=== PATIENT | male | born 1965 | race African-American/Black ===

== ENCOUNTER 2016-12-26 10:15 | Emergency (ER) | payer OTHER ==
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
--- NOTE | 2016-12-26 11:26 | XR ---
EXAMINATION TYPE: XR finger RT DATE OF EXAM: 12/26/2016 COMPARISON: NONE HISTORY: Pain injury to fifth digit TECHNIQUE: 3 view left fifth digit FINDINGS: There is an old fracture of the distal fifth metacarpal. Degenerative joint changes are pre sent. Some mild soft tissue swelling may be present. In the lateral projection there appears to be a fracture of the posterior aspect proximal portion dis ta phalanx. IMPRESSION: 1. Fracture proximal portion distal fifth phalanx on the dorsal aspect.
--- NOTE | 2016-12-26 11:28 | XR ---
EXAMINATION TYPE: XR foot complete LT DATE OF EXAM: 12/26/2016 COMPARISON: 06/22/2016 HISTORY: Left foot injury TECHNIQUE: 3 views left foot FINDINGS: There is a spiral comminuted fracture of the mid to distal diaphyseal fifth metatarsal. No additional fractures are evident. Mild soft tissue swelling is present. IMPRESSION: 1. Comminuted spiral fracture distal diaphyseal fifth metatarsal.
--- NOTE | 2016-12-26 11:58 | XR ---
EXAMINATION TYPE: XR wrist complete LT DATE OF EXAM: 12/26/2016 COMPARISON: NONE HISTORY: Injury, pain TECHNIQUE: 4 view left wrist FINDINGS: No acute fractures are evident. Soft tissues appear normal. If there is pain at the anatomic snuff box, nuclear medicine bone scan can be performed for additiona l evaluation. Follow-up study can be performed 7-10 days from acute trauma for continued pain. IMPRESSION: 1. No acute osseous abnormality radiographically apparent. Follow-up can be performed as clinically indicated.
[2016-12-26 12:00] VITALS: BP 124/80; PULSE 62; RESP 18; TEMP 97.9
--- NOTE | 2016-12-28 08:22 | CDI ---
Dear Kirill Easton MD, Please do addendum to ED report for splint application document for metatarsal fracture. Thank you, ysabel ordonez visiting housekeeper. if you have any questions,please contact amusement centre manager at [phone]. [facility]
== END 2016-12-26 12:00 | disposition home or self-care (01) ==
LOC: EC 10:15
DX: S92.352A Displaced fracture of fifth metatarsal bone, left foot, initial encounter for closed fracture (principal); S62.636 Displaced fracture of distal phalanx of right little finger; E78.5 Hyperlipidemia, unspecified; F41.9 Anxiety disorder, unspecified; F17.200 Nicotine dependence, unspecified, uncomplicated; Z79.82 Long term (current) use of aspirin; Z79.899 Other long term (current) drug therapy; Z88.8 Allergy status to other drugs, medicaments and biological substances; Y04.0XXA Assault by unarmed brawl or fight, initial encounter; Y92.89 Other specified places as the place of occurrence of the external cause
CPT/HCPCS: 29515; 99283

== ENCOUNTER → 2017-01-25 | Outpatient (CLI) | payer OTHER ==
--- NOTE | 2017-01-25 21:31 | MR ---
EXAMINATION TYPE: MR lumbar spine wo con DATE OF EXAM: 01/25/2017 COMPARISON: Prior MRI lumbar spine May 20, 2013. HISTORY: Lumbago per order. Back pain going into bilateral thighs and calves per patient. TECHNIQUE: Multiplanar, multisequence imaging of the lumbar spine is performed without IV contrast. FINDINGS: Sagittal images of the lumbar spine show vertebral body heights and alignment to appear sat isfactory. The intervertebral discs demonstrate normal heights and hydration. No significant posteri or disc herniations are seen on sagittal images. The conus medullaris remains normal in position and signal ending at mid L1 level. The bone marrow signal intensity is within normal limits. No signific ant spurring is seen. Axial images show no focal disc disease, or facet degenerative change at any lumbar level. There is no spinal canal stenosis, neural foraminal narrowing, or evidence of nerve root compromise. IMPRESSION: No significant finding is identified to account for patient's symptoms. No significant ch gregor from prior MRI is noted.
== END | disposition home or self-care (01) ==
LOC: RADMRIMAIN 19:55
PROVIDERS: ATTEND Psychiatry & Neurology Neurology
DX: M54.5 Low back pain (principal); Z88.8 Allergy status to other drugs, medicaments and biological substances
CPT/HCPCS: 72148

== ENCOUNTER 2017-09-14 09:38 | Inpatient (IN) | payer MEDICAID, OTHER ==
--- NOTE | 2017-09-14 10:27 | ED ---
Psych HPI - General Chief Complaint: Psychiatric Symptoms Stated Complaint: SUICIDAL Time Seen by Provider: 09/14/17 09:51 Source: patient, RN notes reviewed, old records reviewed Mode of arrival: ambulatory - History of Present Illness Initial Comments: This patient is a 51-year-old male with suicidal ideation. Patient reports that he's been dealing with depression is been more severe over the past few weeks. He reports last few weeks she's been thinking about jumping off the bridge. He then talked himself out of it. He states that last night he was at his girlfriend continue to have these thoughts. He thought he needed to come in for evaluation. He hasn't been hospitalized for psychiatric disease. Patient reports he has not been taking his Wellbutrin for depression. He states he's been depressed since 2009 due to side effects from taking Reglan. Patient states that he has no homicidal ideations. Denies any visual or auditory hallucinations. He reports that his cocaine abuse has been causing more stressors in his life and for those around him. He reports that he contributes s to his depression. - Related Data Home Medications Medication Instructions Recorded Confirmed Famotidine [Pepcid] 20 mg PO DAILY 08/03/14 09/14/17 Metoprolol Tartrate 25 mg PO BID 08/03/14 09/14/17 Aspirin EC [Ecotrin Low Dose] 81 mg PO DAILY 12/26/16 09/14/17 Ergocalciferol [Vitamin D2] 50,000 unit PO FR 12/26/16 09/14/17 Simvastatin [Zocor] 20 mg PO 12/26/16 09/14/17 ALPRAZolam [Xanax] 0.25 mg PO 09/14/17 09/14/17 Cholecalciferol [Vitamin D3] 5,000 unit PO DAILY 09/14/17 09/14/17 Fenofibrate 160 mg PO DAILY 09/14/17 09/14/17 Naltrexone HCl [Revia] 50 mg PO DAILY 09/14/17 09/14/17 Nitroglycerin Sl Tabs [Nitrostat] 0.4 mg SUBLINGUAL Q5M PRN 09/14/17 09/14/17 rOPINIRole HCL [Requip] 0.5 mg PO 09/14/17 09/14/17 tiZANidine [Zanaflex] 4 mg PO Q8HR PRN 09/14/17 09/14/17 Allergies Allergy/AdvReac Type Severity Reaction Status Date / Time gemfibrozil [From Lopid] Allergy LEG Verified 09/14/17 09:46 CRAMPS,ANXIETY metoclopramide HCl Allergy Rapid Verified 09/14/17 09:46 [From Reglan] Heart Rate Review of Systems ROS Statement: Those systems with pertinent positive or pertinent negative responses have been documented in the HPI. ROS Other: All systems not noted in ROS Statement are negative. Past Medical History Past Medical History: Hyperlipidemia Additional Past Medical History / Comment(s): "involuntary movement" History of Any Multi-Drug Resistant Organisms: None Reported Additional Past Surgical History / Comment(s): COLONOSCOPY,EGD Past Anesthesia/Blood Transfusion Reactions: No Reported Reaction Past Psychological History: Anxiety Smoking Status: Current every day smoker Past Alcohol Use History: Daily Past Drug Use History: Marijuana General Exam - General Exam Comments Initial Comments: 51-year-old male. No distress. Limitations: no limitations General appearance: alert, in no apparent distress Head exam: Present: atraumatic, normocephalic, normal inspection ENT exam: Present: normal exam, mucous membranes moist Neck exam: Present: normal inspection. Absent: tenderness, meningismus, lymphadenopathy Respiratory exam: Present: normal lung sounds bilaterally. Absent: respiratory distress, wheezes, rales, rhonchi, stridor Cardiovascular Exam: Present: regular rate, normal rhythm, normal heart sounds. Absent: systolic murmur, diastolic murmur, rubs, gallop, clicks GI/Abdominal exam: Present: soft, normal bowel sounds. Absent: distended, tenderness, guarding, rebound, rigid Back exam: Present: normal inspection Neurological exam: Present: alert, oriented X3, CN II-XII intact Psychiatric exam: Present: normal mood, depressed. Absent: normal affect (flat affect) Skin exam: Present: warm, dry, intact, normal color. Absent: rash Course Vital Signs 09/14/17 09:43 Temperature 97.4 F L Pulse Rate 84 Respiratory 16 Rate Blood Pressure 125/77 O2 Sat by Pulse 99 Oximetry - Reevaluation(s) Reevaluation #1: 09/14/17 12:15 Patient is reevaluated and resting comfortably bed. Currently pending EPS decision for admission. Medical Decision Making - Medical Decision Making 1-year-old male presents emergency department today suicidal ideations. Patient has no physical complaints at this time. He reports that he was planning to jump off the bridge. Patient is medically clear for EPS. He was evaluated by EPS refilled his patient will benefit from admission. Patient is signing in at his own will. - Lab Data Lab Results 09/14/17 Range/Units 12:33 Urine Opiates Screen Not Detected (NotDetected) Ur Oxycodone Screen Not Detected (NotDetected) Urine Methadone Screen Not Detected (NotDetected) Ur Propoxyphene Screen Not Detected (NotDetected) Ur Barbiturates Screen Not Detected (NotDetected) U Tricyclic Antidepress Not Detected (NotDetected) Ur Phencyclidine Scrn Not Detected (NotDetected) Ur Amphetamines Screen Not Detected (NotDetected) U Methamphetamines Scrn Not Detected (NotDetected) U Benzodiazepines Scrn Not Detected (NotDetected) Urine Cocaine Screen Detected H (NotDetected) U Marijuana (THC) Screen Detected H (NotDetected) Disposition Clinical Impression: Depression, Suicidal ideation Disposition: ADMITTED IP TO THIS HOSP Condition: Stable Time of Disposition: 13:19
[2017-09-14 13:07] LABS: Amphetamine Screen,Urine Not Detected (NotDetected); Barbiturate Screen,Urine Not Detected (NotDetected); Benzodiazepines Screen,Urine Not Detected (NotDetected); Cocaine Screen,Urine Detected (NotDetected); Methadone Screen, Urine Not Detected (NotDetected); Opiate Screen,Urine Not Detected (NotDetected); Oxycodone Screen, Urine Not Detected (NotDetected); Phencyclidine Screen,Urine Not Detected (NotDetected); Tricyclic Antidepressant,Urine Not Detected (NotDetected); Urn Cannabinoid Scrn Detected (NotDetected)
[2017-09-14] MEDS ORDERED: ACETAMINOPHEN TAB 325 MG TAB PO PRN (13:27)
[2017-09-14] MEDS ORDERED: ZIPRASIDONE 20 MG VIAL IM PRN (13:27)
[2017-09-14] MEDS ORDERED: MAGNESIUM HYDROXIDE 2,400 MG/10 ML CUP PO PRN (13:27)
[2017-09-14] MEDS ORDERED: MAG HYDROX/AL HYDROX/SIMETH 30 ML CUP PO PRN (13:27)
[2017-09-14] MEDS ORDERED: NITROGLYCERIN SL TABS 0.4 MG TAB SUBLINGUAL PRN (13:29)
[2017-09-14] MEDS ORDERED: ERGOCALCIFEROL 50,000 UNIT CAP PO SCH (13:30)
[2017-09-14] MEDS ORDERED: LORazepam 2 MG/ML INJ IM PRN (13:31)
[2017-09-14 13:46] LABS: Appearance,Urine Clear (Clear); Bilirubin,Urine Negative (Negative); Blood,Urine Negative (Negative); Color,Urine Yellow; Glucose,Urine (UA) Negative (Negative); Ketones,Urine 1+ (Negative); Leukocyte Esterase,Urine Negative (Negative); Protein,Urine Negative (Negative); Specific Gravity,Urine 1.018 (1.001-1.035)
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
[2017-09-14] MEDS: ATORVASTATIN 10 MG TAB PO SCH (20:06)
[2017-09-14] MEDS: SULFAMETHOX-TMP 800-160MG 1 EACH TAB PO SCH (20:06)
[2017-09-14] MEDS: NICOTINE 14MG/24HR PATCH TRANSDERM SCH (20:35)
--- NOTE | 2017-09-14 22:58 | CONS ---
CONSULTATION DATE OF SERVICE: 09/14/2017 REASON FOR CONSULTATION: Advice regarding COPD and other medical issues requested by psychiatry. HISTORY OF PRESENT ILLNESS: This 51-year-old gentleman with a past medical history of advanced COPD, GERD, hypertension, hyperlipidemia, DJD, involuntary movements, anxiety, depression being followed by Dr. Mera in the outpatient setting was admitted with psychiatric evaluation. The patient also had extensive substance abuse disorder including cocaine, cannabis, alcohol and opioid usage. The patient complaining of some rhonchi and some respiratory difficulty, some cough and yellow sputum and also complains of back and neck pain also. There is no history of fever, rigors, no history of headache, loss of conscious or seizures. PAST MEDICAL: COPD, GERD, hyperlipidemia, DJD, involuntary movements, possible Reglan, migraine, borderline personality disorder. MEDICATIONS: Prior to admission include: 1. Zanaflex 4 mg q.8h p.r.n. 2. Requip 0.5 mg q.h.s. 3. Zocor 20 mg q.h.s. 4. Nitrostat 0.4 mg p.r.n. 5. ReVia 50 mg p.o. daily. 6. Metoprolol 25 mg p.o. b.i.d. 7. Fenofibrate 160 mg p.o. daily. 8. Pepcid 20 mg daily. 9. Vitamin D2 50,000 daily. 10.Vitamin D3 5000 daily. 11.Ecotrin 81 mg p.o. daily. 12.Xanax 0.5 mg p.o. q.h.s. ALLERGIES: LOPID AND REGLAN. FAMILY HISTORY: GERD in the family. SOCIAL HISTORY: History of smoking, alcohol and substance abuse as mentioned. REVIEW OF SYSTEMS: ENT: No diminished hearing or vision. CARDIOVASCULAR: As mentioned. Respiratory: As mentioned earlier. GI no nausea or vomiting. no dysuria. Nervous system: No numbness, otherwise as mentioned earlier. Allergy/Immunology: No asthma or hay fever. Musculoskeletal as mentioned earlier. Hematology/Oncology: No history of anemia. Endocrine no history of diabetes or hypothyroidism. Constitutional: As mentioned earlier. Dermatology: Negative. Rheumatology: Negative. Psychiatric: As mentioned earlier. PHYSICAL EXAMINATION: Alert and oriented x3. Pulse is 80. Blood pressure is 127/69, respiration 16, temperature 98.5, pulse ox 94% on room air. HEENT: Conjunctivae normal. Oral mucosa moist. Neck is no jugular venous distention. No carotid bruit. No lymph node enlargement. Cardiovascular system: S1, S2. No S3, no S4. RESPIRATORY: Breath sounds diminished in the bases. A few bilateral scattered rhonchi and crackles. Otherwise abdomen soft, nontender. No mass palpable. Legs no edema and no swelling. Nervous system: Higher functions as mentioned. Moves all 4 limbs. No focal motor or sensory deficits. Lymphatics: No lymph nodes palpable in the neck, axillae or groin. Skin no ulcer, rash or bleeding. LABS: UA noted. Otherwise drug screen positive cocaine and THC. ASSESSMENT: 1. Chronic obstructive pulmonary disease with acute purulent tracheobronchitis. 2. Gastroesophageal reflux disease. 3. Hyperlipidemia. 4. Degenerative joint disease. 5. Involuntary movements with Reglan. 6. History of herpes. 7. Anxiety, depression. 8. History of borderline personality disorder. 9. History of nicotine dependence. 10.Polysubstance abuse including cocaine and marijuana. 11.Hypertension. RECOMMENDATION AND DISCUSSION: This 51-year-old gentleman who presented with multiple medical issues. At this time I recommend to continue current management and treatment. Otherwise I would recommend resume the home medications. I would also recommend a course of albuterol and empiric antibiotics. Also otherwise the patient may be asked to follow with primary physician closely after discharge. We will follow the patient closely. Thank you for letting us participate in the care of this patient. MMODL / IJN: [id number] /
[2017-09-15 08:21] LABS: Basophils % (A) 0 %; Eosinophils # (A) 0.1 k/uL (0-0.7); Eosinophils % (A) 1 %; HCT 46.2 % (39.0-53.0); HGB 15.1 gm/dL (13.0-17.5); Lymphocytes # (A) 1.8 k/uL (1.0-4.8); Lymphocytes % (A) 29 %; MCH 30.5 pg (25.0-35.0); MCHC 32.7 g/dL (31.0-37.0); MCV 93.1 fL (80.0-100.0); Mean Platelet Volume 8.7; Monocytes # (A) 0.5 k/uL (0-1.0); Monocytes % (A) 8 %; Neutrophils # (A) 3.7 k/uL (1.3-7.7); Neutrophils % (A) 60 %; Platelet Count 191 k/uL (150-450); RBC 4.96 m/uL (4.30-5.90); RDW 12.4 % (11.5-15.5); WBC 6.2 k/uL (3.8-10.6)
[2017-09-15 08:26] LABS: ALT 20 U/L (21-72); AST 29 U/L (17-59); Alkaline Phosphatase 56 U/L (38-126); Anion Gap 8 mmol/L; Blood Urea Nitrogen 11 mg/dL (9-20); Calcium 9.2 mg/dL (8.4-10.2); Carbon Dioxide 29 mmol/L (22-30); Chloride 103 mmol/L (98-107); Cholesterol 148 mg/dL (<200); Glucose 85 mg/dL (74-99); HDL Cholesterol 55 mg/dL (40-60); LDL Cholesterol,Calculated 71 mg/dL (0-99); Potassium 4.1 mmol/L (3.5-5.1); Sodium 140 mmol/L (137-145); Total Bilirubin 1.1 mg/dL (0.2-1.3); Total Protein 6.9 g/dL (6.3-8.2); Triglycerides 112 mg/dL (<150)
[2017-09-15] MEDS: ASPIRIN 81 MG PO SCH (08:28)
[2017-09-15] MEDS: METOPROLOL TARTRATE 25 MG TAB PO SCH ×2 (08:28→20:18)
[2017-09-15] MEDS: buPROPion 100 MG TAB PO SCH (08:28)
[2017-09-15] MEDS: FENOFIBRATE 160 MG TAB PO SCH (08:28)
[2017-09-15] MEDS: NICOTINE 14MG/24HR PATCH TRANSDERM SCH (08:28)
[2017-09-15] MEDS: SULFAMETHOX-TMP 800-160MG 1 EACH TAB PO SCH ×2 (08:28→20:18)
[2017-09-15] MEDS ORDERED: NICOTINE 14MG/24HR PATCH TRANSDERM SCH (09:00)
[2017-09-15] MEDS: ALBUTEROL INHALER 60 PUFF/8 GM INHALER INHALATION SCH ×3 (10:15→21:20)
[2017-09-15] MEDS: CHOLECALCIFEROL 1,000 UNIT TAB PO SCH (11:50)
[2017-09-15] MEDS: THIAMINE 100 MG TAB PO SCH (11:50)
[2017-09-15] MEDS: MULTIVITAMINS, THERA 1 EACH TAB PO SCH (11:50)
--- NOTE | 2017-09-15 13:50 | P.PN ---
Progress Note - Text Progress Note Date: 09/15/17 Interval History: Patient is a 51-year-old male who was seen today in coverage over the weekend and he reports that he is no longer having suicidal thoughts and is feeling less depressed. Patient states that he remains suspicious and paranoid and continues to see shadows and hear voices but he states that they are becoming less intense and frequent. He states that he slept last evening and has been eating well. He reports he feels anxious at times and was using Xanax at bedtime at home for his anxiety. Mental Status: Appearance/Attitude: Patient is dressed in a hospital gown, makes good eye contact and was cooperative. Behavior: He does not display any psychomotor agitation or retardation. Speech/Language: Patient's speech is spontaneous and of normal volume and rhythm and he is coherent. Thought Process: Patient is goal-directed there is no evidence of circumstantial or tangential thought and he does not exhibit any loose associations or flight of ideas Thought Content: Patient states he is still hearing voices which sound like noise, seeing shadows but these are improving and he reports remaining suspicious and paranoid although this is also improving. Patient states that this occurs when he is been using cocaine. Patient states he slept last evening and is eating well. He reports feeling anxious at times. Suicidal/Homicidal Ideation: Patient denies any current suicidal or homicidal ideation. Sensorium/Cognition: Is alert and oriented to person, place, and time and his recent and remote memory are grossly intact. Mood/Affect: Mood remains slightly depressed and his affect is appropriate Insight/Judgment: Patient's insight and judgment are fair Assessment: Patient was admitted for suicidal ideation, hearing voices and being paranoid after using cocaine, patient presents today and states that the suspiciousness and paranoia as well as the voices and shadows are decreasing in intensity and frequency. He reports he is feeling less depressed and has no current suicidal ideation. Patient has been attending groups and activities. He reports no side effects from the beginning of Wellbutrin. Plan: Patient will continue on Wellbutrin 100 mg in the morning, patient continues to require hospitalization to further stabilize his mood.
[2017-09-15 20:14] LABS: Hemoglobin A1C 5.1 % (4.0-6.0)
[2017-09-15] MEDS: ATORVASTATIN 10 MG TAB PO SCH (20:18)
[2017-09-15] MEDS: LORazepam 1 MG TAB PO PRN (20:19)
[2017-09-16] MEDS: NICOTINE 14MG/24HR PATCH TRANSDERM SCH (08:24)
[2017-09-16] MEDS: METOPROLOL TARTRATE 25 MG TAB PO SCH ×2 (08:25→20:29)
[2017-09-16] MEDS: FENOFIBRATE 160 MG TAB PO SCH (08:25)
[2017-09-16] MEDS: SULFAMETHOX-TMP 800-160MG 1 EACH TAB PO SCH ×2 (08:25→20:30)
[2017-09-16] MEDS: buPROPion 100 MG TAB PO SCH (08:26)
[2017-09-16] MEDS: LORazepam 1 MG TAB PO PRN ×2 (08:28→20:32)
[2017-09-16] MEDS: ASPIRIN 81 MG PO SCH (09:10)
[2017-09-16] MEDS: ALBUTEROL INHALER 60 PUFF/8 GM INHALER INHALATION SCH ×3 (11:46→21:34)
[2017-09-16] MEDS: MULTIVITAMINS, THERA 1 EACH TAB PO SCH (12:43)
[2017-09-16] MEDS: CHOLECALCIFEROL 1,000 UNIT TAB PO SCH (12:43)
[2017-09-16] MEDS: THIAMINE 100 MG TAB PO SCH (12:53)
--- NOTE | 2017-09-16 14:09 | P.PN ---
Progress Note - Text Progress Note Date: 09/16/17 Interval History: Patient is a 51-year-old male who is being seen for weekend coverage. Patient reports that he is no longer hearing voices, no longer feeling paranoid or suicidal or depressed. Patient states that he is sleeping and eating well and going to groups. He reports feeling better from a physical standpoint. He reports no symptoms of withdrawal. Patient states he is sleeping and eating well. Patient stated that he thinks his difficulties and symptoms arose from his use of cocaine and alcohol. Mental Status: Appearance/Attitude: Patient is neatly dressed, makes good eye contact and is cooperative Behavior: Patient does not display any psychomotor agitation or retardation. Speech/Language: Patient's speech is spontaneous and of normal volume and rhythm and he is coherent Thought Process: Patient is goal-directed there is no evidence of loose association or flight of ideas. Thought Content: Patient denies any auditory or visual hallucinations and no delusions or paranoid ideation or elicited. Patient reports he is sleeping and eating well and reports no signs of withdrawal. Patient states he's feeling better from a physical standpoint. Suicidal/Homicidal Ideation: Patient denies any current suicidal or homicidal ideation Sensorium/Cognition: He is alert and oriented to person, place, and time and his recent and remote memory are grossly intact. Mood/Affect: Patient's mood is pleasant and his affect is appropriate Insight/Judgment: Patient's insight and judgment are intact Assessment: Patient reports he is no longer feeling suicidal and is not having any auditory hallucinations or paranoid ideation and states that he is no longer feeling depressed. He states that he is sleeping and eating well and attending groups and denies any withdrawal symptoms. Patient states he is aware his symptoms are due to his alcohol and cocaine use. Patient states he is not having any side effects from the medication. Plan: Patient will continue on Wellbutrin 100 mg in the morning and states that he is interested in inpatient rehab and will speak with social work regarding referrals for this.
[2017-09-16] MEDS: ATORVASTATIN 10 MG TAB PO SCH (20:29)
[2017-09-17] MEDS: NICOTINE 14MG/24HR PATCH TRANSDERM SCH (08:12)
[2017-09-17] MEDS: buPROPion 100 MG TAB PO SCH (08:13)
[2017-09-17] MEDS: FENOFIBRATE 160 MG TAB PO SCH (08:13)
[2017-09-17] MEDS: SULFAMETHOX-TMP 800-160MG 1 EACH TAB PO SCH ×2 (08:13→20:10)
[2017-09-17] MEDS: ASPIRIN 81 MG PO SCH (08:13)
[2017-09-17] MEDS: METOPROLOL TARTRATE 25 MG TAB PO SCH ×2 (08:13→20:12)
[2017-09-17] MEDS: LORazepam 1 MG TAB PO PRN ×3 (08:15→20:10)
[2017-09-17] MEDS: ALBUTEROL INHALER 60 PUFF/8 GM INHALER INHALATION SCH (09:43)
[2017-09-17] MEDS: THIAMINE 100 MG TAB PO SCH (11:56)
[2017-09-17] MEDS: MULTIVITAMINS, THERA 1 EACH TAB PO SCH (11:56)
[2017-09-17] MEDS: CHOLECALCIFEROL 1,000 UNIT TAB PO SCH (11:56)
--- NOTE | 2017-09-17 12:17 | P.PN ---
Progress Note - Text Progress Note Date: 09/17/17 Patient is doing well, attends groups and takes most of his medications except for metoprolol. He said it makes his blood pressure go down pulse rate go down and his doctor had canceled it prior to coming to hospital. However it was continued by the doctor who gave him his physical exam. He has not been taking it because of his concern. But his blood pressure did not shoot up. He takes his Wellbutrin and denies any side effects. The information from his [facility] dated July of this year indicates he has not been taking his medications since December of last year and has not been going to the clinic for follow up visits. Patient is polite and friendly and cooperative. He does not show any psychomotor agitation or retardation. His speech is spontaneous relevant and goal-directed. His mood is euthymic and affect is appropriate. He denies hallucinations delusional thinking suicidal and homicidal ideas. He is well oriented with adequate memory concentration general fund of knowledge etc. He said he is planning on going to a rehab in [facility]. He said he has to be there by 1:00 to more. He was advised to discuss this with his social services aide to verified this information and to make arrangements for him to go. He agreed. Plan: Continue Wellbutrin groups and other therapies. Discharge to rehab when this is accepted and arranged.
[2017-09-17] MEDS: ATORVASTATIN 10 MG TAB PO SCH (20:09)
[2017-09-18 06:31] VITALS: BP 112/68; PULSE 54; RESP 14; TEMP 97.6
[2017-09-18] MEDS: ASPIRIN 81 MG PO SCH (08:29)
[2017-09-18] MEDS: buPROPion 100 MG TAB PO SCH (08:30)
[2017-09-18] MEDS: NICOTINE 14MG/24HR PATCH TRANSDERM SCH (08:30)
[2017-09-18] MEDS: METOPROLOL TARTRATE 25 MG TAB PO SCH (08:30)
[2017-09-18] MEDS: FENOFIBRATE 160 MG TAB PO SCH (08:30)
[2017-09-18] MEDS: SULFAMETHOX-TMP 800-160MG 1 EACH TAB PO SCH (08:31)
[2017-09-18] MEDS: LORazepam 1 MG TAB PO PRN (08:32)
--- NOTE | 2017-09-18 08:35 | P.DS ---
Providers Date of admission: 09/14/17 13:17 Expected date of discharge: 09/18/17 Attending physician: Emery Keenan Consults: 09/14/17 15:09 Consult Physician Routine Consulting Provider: Dena Ospina Consult Reason/Comments: follow up H & P Do you want consulting provider notified?: Yes Primary care physician: [facility] Course: Patient had his psychiatric examination physical examination and psychosocial evaluation. After psychiatric examination his condition was discussed with him and it was agreed to restart Wellbutrin at 100 mg a day. His home medications for physical problems including aspirin Lipitor vitamin D fenofibrate metoprolol nitroglycerin when necessary where continued. Patient has not been taking his metoprolol since his blood pressure was not high and pulse rate was rather low. He was started on Bactrim 800 mg twice a day for [address] Ospina. It is not clear why this medication was started. His lab report does not show any evidence of infection. Patient continued to do well and did not have any suicidal thoughts. He still could not return to live with his mother because of his behavior while he was living with her he got accepted to a rehab center near [facility] and he will be going there today. In view of this it was agreed to discharge him today. At the time of discharge patient continues to be polite and cooperative. He has good hygiene. He does not show any psychomotor agitation or retardation. His speech is spontaneous relevant and goal-directed. His mood is cheerful and affect is appropriate. He continues to deny suicidal and homicidal ideas. He does not have any hallucinations or delusional thinking. His insight is fair and judgment is rather impaired as evidenced by his continued substance abuse and antisocial behavior. He is well oriented with good memory concentration general fund of knowledge etc. Diagnosis on discharge: Unspecified depressive disorder F 32.9 Cocaine use disorder severe F 14.20 Cannabis use disorder severe F 12.20 Alcohol use disorder moderate to severe F 10.20 Opioid use disorder moderate F 11.20 Antisocial personality disorder F 60.2 Malingering Z 76.5 ALLERGY to gemfibrozil and Reglan Hyper lipidemia GERD. Discharge plan: Patient is discharged to a rehab center near [facility]. Patient Condition at Discharge: Good Plan - Discharge Summary Discharge Rx Participant: No New Discharge Prescriptions: New Acetaminophen Tab [Tylenol] 650 mg PO Q4HR PRN tab PRN Reason: Pain/Discomfort buPROPion [Wellbutrin] 100 mg PO QAM 30 Days #30 tab Mag Hydrox/Al Hydrox/Simeth [Maalox] 30 ml PO Q4HR PRN cup PRN Reason: Gi Upset Magnesium Hydroxide [Milk of Magnesia Concentrate] 2,400 mg PO DAILY PRN ml PRN Reason: Constipation Multivitamins, Thera [Multivitamin (formulary)] 1 each PO DAILY@1200 tab Sulfamethox-Tmp 800-160Mg [Bactrim DS 800-160 mg] 1 each PO BID 2 Days #4 tab Continue Nitroglycerin Sl Tabs [Nitrostat] 0.4 mg SUBLINGUAL Q5M PRN PRN Reason: Chest Pain Aspirin EC [Ecotrin Low Dose] 81 mg PO DAILY #30 tablet. Cholecalciferol [Vitamin D3] 5,000 unit PO DAILY 30 Days #30 tab Fenofibrate 160 mg PO DAILY 30 Days #30 tablet Simvastatin [Zocor] 20 mg PO HS 30 Days #30 tablet Discontinued Metoprolol Tartrate 25 mg PO BID Famotidine [Pepcid] 20 mg PO DAILY Ergocalciferol [Vitamin D2] 50,000 unit PO FR tiZANidine [Zanaflex] 4 mg PO Q8HR PRN PRN Reason: Pain rOPINIRole HCL [Requip] 0.5 mg PO HS Naltrexone HCl [Revia] 50 mg PO DAILY ALPRAZolam [Xanax] 0.25 mg PO HS Discharge Medication List Nitroglycerin Sl Tabs [Nitrostat] 0.4 mg SUBLINGUAL Q5M PRN 09/14/17 [History] Acetaminophen Tab [Tylenol] 650 mg PO Q4HR PRN tab 09/18/17 [Rx] Aspirin EC [Ecotrin Low Dose] 81 mg PO DAILY #30 tablet. 09/18/17 [Rx] Cholecalciferol [Vitamin D3] 5,000 unit PO DAILY 30 Days #30 tab 09/18/17 [Rx] Fenofibrate 160 mg PO DAILY 30 Days #30 tablet 09/18/17 [Rx] Mag Hydrox/Al Hydrox/Simeth [Maalox] 30 ml PO Q4HR PRN cup 09/18/17 [Rx] Magnesium Hydroxide [Milk of Magnesia Concentrate] 2,400 mg PO DAILY PRN ml 12/31 [Rx] Multivitamins, Thera [Multivitamin (formulary)] 1 each PO DAILY@1200 tab [Rx] Simvastatin [Zocor] 20 mg PO HS 30 Days #30 tablet 09/18/17 [Rx] Sulfamethox-Tmp 800-160Mg [Bactrim DS 800-160 mg] 1 each PO BID 2 Days #4 tab [Rx] buPROPion [Wellbutrin] 100 mg PO QAM 30 Days #30 tab 09/18/17 [Rx] Follow up Appointment(s)/Referral(s): intake,intake [Other] - 09/18/17 1:00 pm Maddy Mera MD [Primary Care Provider] - 1-2 days Patient Instructions/Handouts: Depression (DC), Suicide Prevention for Adults ( DC) Activity/Diet/Wound Care/Special Instructions: Activity and diet as tolerated. Avoid the use of street drugs and alcohol. Remove all firearms from home. Take all medications as prescribed. When you are in need of refills of your medication please contact your medical provider and/ or outpatient psychiatrist to have this done. Please go to scheduled outpatient appointment for aftercare. If symptoms return or become worse you can call the Crisis Line at and/or go to the nearest emergency room for an evaluation.
== END 2017-09-18 08:58 | DRG 881 ==
LOC: EC 09:38 → 3MHU 13:17
PROVIDERS: ADMIT Psychiatry & Neurology Psychiatry; ATTEND Psychiatry & Neurology Psychiatry
DX: F32.9 Major depressive disorder, single episode, unspecified (principal); F11.20 Opioid dependence, uncomplicated; F14.20 Cocaine dependence, uncomplicated; F12.20 Cannabis dependence, uncomplicated; F10.20 Alcohol dependence, uncomplicated; F60.2 Antisocial personality disorder; Z76.5 Malingerer [conscious simulation]; Z88.8 Allergy status to other drugs, medicaments and biological substances; E78.5 Hyperlipidemia, unspecified; F17.200 Nicotine dependence, unspecified, uncomplicated; F41.9 Anxiety disorder, unspecified; F60.3 Borderline personality disorder; I10 Essential (primary) hypertension; J44.9 Chronic obstructive pulmonary disease, unspecified; K21.9 Gastro-esophageal reflux disease without esophagitis; M19.90 Unspecified osteoarthritis, unspecified site; Z79.82 Long term (current) use of aspirin; Z79.899 Other long term (current) drug therapy; Z59.0 Homelessness
CPT/HCPCS: 80053; 80061; 80306; 81003; 82075; 83036; 84443; 85025; 94640; 99285

== ENCOUNTER 2017-10-10 18:47 | Emergency (ER) | payer OTHER ==
[2017-10-10] MEDS ORDERED: SODIUM CHLORIDE 0.9% 1,000 ML IV STA (19:12)
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
--- NOTE | 2017-10-10 19:59 | XR ---
EXAMINATION TYPE: XR chest 2V DATE OF EXAM: 10/10/2017 COMPARISON: 02/10/2016 HISTORY: Chest pain TECHNIQUE: Frontal and lateral views of the chest are obtained. FINDINGS: There is no heart failure nor confluent pneumonic infiltrate. Thoracic aorta is atheromato us. There are chest leads. Costophrenic angles are clear. Bony thorax is intact. IMPRESSION: No active cardiopulmonary disease. No change.
[2017-10-10 20:27] LABS: Basophils % (A) 0 %; Eosinophils # (A) 0.1 k/uL (0-0.7); Eosinophils % (A) 1 %; HCT 42.7 % (39.0-53.0); HGB 14.3 gm/dL (13.0-17.5); Lymphocytes # (A) 2.5 k/uL (1.0-4.8); Lymphocytes % (A) 33 %; MCH 29.2 pg (25.0-35.0); MCHC 33.6 g/dL (31.0-37.0); Mean Platelet Volume 10.2; Monocytes # (A) 0.7 k/uL (0-1.0); Monocytes % (A) 9 %; Neutrophils # (A) 4.2 k/uL (1.3-7.7); Neutrophils % (A) 55 %; Platelet Count 185 k/uL (150-450); RBC 4.91 m/uL (4.30-5.90); WBC 7.6 k/uL (3.8-10.6)
[2017-10-10 20:33] LABS: MCV 86.9 fL (80.0-100.0)
[2017-10-10 20:37] LABS: Partial Thromboplastin Time 26.2 sec (22.0-30.0); Prothrombin Time 9.9 sec (9.0-12.0)
[2017-10-10 20:39] LABS: Amphetamine Screen,Urine Not Detected (NotDetected); Barbiturate Screen,Urine Not Detected (NotDetected); Benzodiazepines Screen,Urine Not Detected (NotDetected); Cocaine Screen,Urine Detected (NotDetected); Methadone Screen, Urine Not Detected (NotDetected); Opiate Screen,Urine Not Detected (NotDetected); Oxycodone Screen, Urine Not Detected (NotDetected); Phencyclidine Screen,Urine Not Detected (NotDetected); Tricyclic Antidepressant,Urine Not Detected (NotDetected); Urn Cannabinoid Scrn Detected (NotDetected)
[2017-10-10 20:46] LABS: ALT 25 U/L (21-72); AST 42 U/L (17-59); Albumin 4.2 g/dL (3.5-5.0); Alcohol <10 mg/dL; Alkaline Phosphatase 61 U/L (38-126); Anion Gap 12 mmol/L; Blood Urea Nitrogen 16 mg/dL (9-20); Calcium 9.6 mg/dL (8.4-10.2); Carbon Dioxide 26 mmol/L (22-30); Chloride 99 mmol/L (98-107); Glucose 113 mg/dL (74-99); Lipase 134 U/L (23-300); Potassium 3.9 mmol/L (3.5-5.1); Sodium 137 mmol/L (137-145); Total Bilirubin 1.3 mg/dL (0.2-1.3); Total Protein 7.3 g/dL (6.3-8.2)
[2017-10-10 20:53] LABS: Creatine Kinase 733 U/L (55-170)
[2017-10-10 21:06] LABS: Troponin I <0.012 ng/mL (0.000-0.034)
[2017-10-10 21:10] LABS: Creatine Kinase MB 7.1 ng/mL (0.0-2.4)
[2017-10-10 21:58] VITALS: BP 121/71; PULSE 70; RESP 15; TEMP 98
== END 2017-10-10 22:03 | disposition home or self-care (01) ==
LOC: EC 18:47
DX: F14.90 Cocaine use, unspecified, uncomplicated (principal); R51 Headache; R07.9 Chest pain, unspecified; R00.1 Bradycardia, unspecified; E78.5 Hyperlipidemia, unspecified; F17.200 Nicotine dependence, unspecified, uncomplicated; Z88.8 Allergy status to other drugs, medicaments and biological substances; Z79.899 Other long term (current) drug therapy
CPT/HCPCS: 36415; 71046; 80053; 80306; 80320; 82550; 82553; 83690; 83735; 84484; 85025; 85610; 85730; 93005; 96360; 96361; 99284

== ENCOUNTER 2017-11-19 15:16 | Emergency (ER) | payer OTHER ==
[2017-11-19 16:04] VITALS: BP 117/74; PULSE 67; RESP 18; TEMP 98.5
[2017-11-19] MEDS ORDERED: ORPHENADRINE 30 MG/ML 2 ML VIAL IM STA (16:20)
[2017-11-19] MEDS ORDERED: KETOROLAC 30 MG/ML 1 ML VIAL IM STA (16:20)
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
== END 2017-11-19 16:53 | disposition home or self-care (01) ==
LOC: EC 15:16
DX: S16.1XXA Strain of muscle, fascia and tendon at neck level, initial encounter (principal); E78.5 Hyperlipidemia, unspecified; F17.200 Nicotine dependence, unspecified, uncomplicated; Z88.8 Allergy status to other drugs, medicaments and biological substances; Z79.899 Other long term (current) drug therapy; X58.XXXA Exposure to other specified factors, initial encounter
CPT/HCPCS: 99283; 96372 ×2; J2360; J1885

== ENCOUNTER 2017-12-26 17:46 | Emergency (ER) | payer OTHER ==
[2017-12-26 18:11] VITALS: BP 106/69; PULSE 57; RESP 16; TEMP 99
--- NOTE | 2017-12-26 19:18 | ED ---
General Adult HPI - General Chief complaint: Extremity Problem,Nontraumatic Stated complaint: FB in groin area Time Seen by Provider: 12/26/17 18:39 Source: patient Mode of arrival: ambulatory Limitations: no limitations - History of Present Illness Initial comments: 52-year-old male patient presents to the emergency department today for evaluation of left-sided chest pain. Patient states this started earlier today. Patient states that he is having sweats with this. He denies any shortness of breath or nausea. Patient states that he has past. States he did have a catheterization about a year ago. States that a few months ago he felt something hard "like a cap" in his left groin where he had the catheterization, he was concerned something was left from the catheterization and that it has traveled up and may be causing his chest pain today. States he no longer feels the "foreign body" in his groin. Patient does have a history of drug abuse including cocaine. He states that he has not had any for the last 3 weeks. He denies any cough, congestion, dizziness, weakness, numbness, or tingling. No problems with his bowel movements or urination. - Related Data Home Medications Medication Instructions Recorded Confirmed ALPRAZolam [Xanax] 0.25 mg PO BID PRN 12/26/17 12/26/17 HYDROcodone/APAP 5-325MG [[place] 1 tab PO Q6HR PRN 12/26/17 12/26/17 5-325] Previous Rx's Medication Instructions Recorded Aspirin EC [Ecotrin Low Dose] 81 mg PO DAILY #30 tablet. 09/18/17 Simvastatin [Zocor] 20 mg PO HS 30 Days #30 tablet 09/18/17 buPROPion [Wellbutrin] 100 mg PO QAM 30 Days #30 tab 09/18/17 Allergies Allergy/AdvReac Type Severity Reaction Status Date / Time gemfibrozil [From Lopid] Allergy LEG Verified 12/26/17 19:06 CRAMPS,ANXIETY metoclopramide HCl Allergy Rapid Verified 12/26/17 19:06 [From Reglan] Heart Rate Review of Systems ROS Statement: Those systems with pertinent positive or pertinent negative responses have been documented in the HPI. ROS Other: All systems not noted in ROS Statement are negative. 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 " History of Any Multi-Drug Resistant Organisms: None Reported Additional Past Surgical History / Comment(s): COLONOSCOPY,EGD Past Anesthesia/Blood Transfusion Reactions: No Reported Reaction Past Psychological History: Anxiety, Depression Smoking Status: Current every day smoker Past Alcohol Use History: Occasional Past Drug Use History: Marijuana - Past Family History Mother Family Medical History: GERD/Reflux Father Family Medical History: Cancer, Myocardial Infarction ([place]) General Exam Limitations: no limitations General appearance: alert, in no apparent distress, other (This is a well- developed, well-nourished adult male patient in no acute distress. Vital signs temperature 99.0F. Respirations 16, blood pressure 106/69, pulse ox 100% on room air.) Eye exam: Present: normal appearance, PERRL, EOMI. Absent: scleral icterus, conjunctival injection, periorbital swelling Respiratory exam: Present: normal lung sounds bilaterally. Absent: respiratory distress, wheezes, rales, rhonchi, stridor Cardiovascular Exam: Present: regular rate, normal rhythm, normal heart sounds. Absent: systolic murmur, diastolic murmur, rubs, gallop, clicks GI/Abdominal exam: Present: soft, normal bowel sounds, other (left groin, puncture site is well healed. No mass or foreign body. ). Absent: distended, tenderness, guarding, rebound, rigid Neurological exam: Present: alert, oriented X3, CN II-XII intact Psychiatric exam: Present: normal affect, normal mood Skin exam: Present: warm, dry, intact, normal color. Absent: rash Course Vital Signs 12/26/17 18:08 Temperature 99.0 F Pulse Rate 57 L Respiratory 16 Rate Blood Pressure 106/69 O2 Sat by Pulse 100 Oximetry EKG Findings - EKG Comments: EKG Findings:: He is at 1822 shows sinus bradycardia with a ventricular rate of 9, OR interval 166, respiratory or, QT, QTC 370. No evidence of ST elevation or depression. Medical Decision Making - Medical Decision Making 52-year-old male patient presented to the emergency department today for evaluation of left-sided chest pain. Patient was concerned about a postsurgical foreign body having trouble to his chest causing his symptoms. Physical examination is unremarkable. Labs reviewed and are unremarkable. Troponin is negative. EKG shows sinus bradycardia. I did discuss findings and results with the patient. His pain is atypical and not concerning for CAD. He does feel comfortable being discharged home. He is instructed to follow-up with his turbogenerator operator for further evaluation. Return parameters discussed in detail. He verbalizes understanding and agrees with this plan. - Lab Data Result diagrams: 12/26/17 19:00 12/26/17 19:00 Lab Results 12/26/17 12/26/17 12/26/17 Range/Units 19:00 19:00 19:00 WBC 9.0 (3.8-10.6) k/uL RBC 4.93 (4.30-5.90) m/uL Hgb 15.0 (13.0-17.5) gm/dL Hct 45.3 (39.0-53.0) % MCV 91.8 (80.0-100.0) fL MCH 30.3 (25.0-35.0) pg MCHC 33.0 (31.0-37.0) g/dL RDW 12.8 (11.5-15.5) % Plt Count 230 (150-450) k/uL Neutrophils % 62 % Lymphocytes % 28 % Monocytes % 6 % Eosinophils % 2 % Basophils % 0 % Neutrophils # 5.6 (1.3-7.7) k/uL Lymphocytes # 2.6 (1.0-4.8) k/uL Monocytes # 0.5 (0-1.0) k/uL Eosinophils # 0.2 (0-0.7) k/uL Basophils # 0.0 (0-0.2) k/uL PT (9.0-12.0) sec INR (<1.2) APTT (22.0-30.0) sec Sodium (137-145) mmol/L Potassium (3.5-5.1) mmol/L Chloride (98-107) mmol/L Carbon Dioxide (22-30) mmol/L Anion Gap mmol/L BUN (9-20) mg/dL Creatinine (0.66-1.25) mg/dL Est GFR (CKD-EPI)AfAm (>60 ml/min/1.73 sqM) Est GFR (CKD-EPI)NonAf (>60 ml/min/1.73 sqM) Glucose (74-99) mg/dL Calcium (8.4-10.2) mg/dL Magnesium (1.6-2.3) mg/dL Total Bilirubin (0.2-1.3) mg/dL AST (17-59) U/L ALT (21-72) U/L Alkaline Phosphatase (38-126) U/L Total Creatine Kinase 93 (55-170) U/L CK-MB (CK-2) 6.1 H* (0.0-2.4) ng/mL CK-MB (CK-2) Rel Index 6.6 Troponin I <0.012 (0.000-0.034) ng/mL Total Protein (6.3-8.2) g/dL Albumin (3.5-5.0) g/dL Urine Opiates Screen Not Detected (NotDetected) Ur Oxycodone Screen Not Detected (NotDetected) Urine Methadone Screen Not Detected (NotDetected) Ur Propoxyphene Screen Not Detected (NotDetected) Ur Barbiturates Screen Not Detected (NotDetected) U Tricyclic Antidepress Not Detected (NotDetected) Ur Phencyclidine Scrn Not Detected (NotDetected) Ur Amphetamines Screen Not Detected (NotDetected) U Methamphetamines Scrn Not Detected (NotDetected) U Benzodiazepines Scrn Not Detected (NotDetected) Urine Cocaine Screen Not Detected (NotDetected) U Marijuana (THC) Screen Detected H (NotDetected) 12/26/17 12/26/17 Range/Units 19:00 19:00 WBC (3.8-10.6) k/uL RBC (4.30-5.90) m/uL Hgb (13.0-17.5) gm/dL Hct (39.0-53.0) % MCV (80.0-100.0) fL MCH (25.0-35.0) pg MCHC (31.0-37.0) g/dL RDW (11.5-15.5) % Plt Count (150-450) k/uL Neutrophils % % Lymphocytes % % Monocytes % % Eosinophils % % Basophils % % Neutrophils # (1.3-7.7) k/uL Lymphocytes # (1.0-4.8) k/uL Monocytes # (0-1.0) k/uL Eosinophils # (0-0.7) k/uL Basophils # (0-0.2) k/uL PT 9.7 (9.0-12.0) sec INR 1.0 (<1.2) APTT 25.8 (22.0-30.0) sec Sodium 141 (137-145) mmol/L Potassium 4.4 (3.5-5.1) mmol/L Chloride 103 (98-107) mmol/L Carbon Dioxide 27 (22-30) mmol/L Anion Gap 11 mmol/L BUN 12 (9-20) mg/dL Creatinine 1.20 (0.66-1.25) mg/dL Est GFR (CKD-EPI)AfAm 80 (>60 ml/min/1.73 sqM) Est GFR (CKD-EPI)NonAf 69 (>60 ml/min/1.73 sqM) Glucose 88 (74-99) mg/dL Calcium 9.7 (8.4-10.2) mg/dL Magnesium 2.0 (1.6-2.3) mg/dL Total Bilirubin 0.4 (0.2-1.3) mg/dL AST 24 (17-59) U/L ALT 28 (21-72) U/L Alkaline Phosphatase 52 (38-126) U/L Total Creatine Kinase (55-170) U/L CK-MB (CK-2) (0.0-2.4) ng/mL CK-MB (CK-2) Rel Index Troponin I (0.000-0.034) ng/mL Total Protein 7.2 (6.3-8.2) g/dL Albumin 4.3 (3.5-5.0) g/dL Urine Opiates Screen (NotDetected) Ur Oxycodone Screen (NotDetected) Urine Methadone Screen (NotDetected) Ur Propoxyphene Screen (NotDetected) Ur Barbiturates Screen (NotDetected) U Tricyclic Antidepress (NotDetected) Ur Phencyclidine Scrn (NotDetected) Ur Amphetamines Screen (NotDetected) U Methamphetamines Scrn (NotDetected) U Benzodiazepines Scrn (NotDetected) Urine Cocaine Screen (NotDetected) U Marijuana (THC) Screen (NotDetected) - Radiology Data Radiology results: report reviewed, image reviewed Two-view x-ray of the chest is obtained. Heart and mediastinum are normal. Lungs are clear. Diaphragm is normal. Bony thorax is intact. There are chest leads. Impression by Dr. Ramos shows normal chest with no change. Disposition Clinical Impression: Chest pain Disposition: HOME SELF-CARE Condition: Good Instructions: Chest Pain (ED) Additional Instructions: Follow up with your turbogenerator operator for concerns regarding your heart catheterization. Follow up with your primary care physician for recheck in 1-2 days. Return here immediately for any new, worsening, or concerning symptoms. Is patient prescribed a controlled substance at d/c from ED?: No Referrals: [facility] [Primary Care Provider] - 1-2 days Time of Disposition: 20:54
[2017-12-26 19:20] LABS: Basophils % (A) 0 %; Eosinophils # (A) 0.2 k/uL (0-0.7); Eosinophils % (A) 2 %; HCT 45.3 % (39.0-53.0); Lymphocytes # (A) 2.6 k/uL (1.0-4.8); Lymphocytes % (A) 28 %; MCH 30.3 pg (25.0-35.0); MCV 91.8 fL (80.0-100.0); Mean Platelet Volume 9.1; Monocytes # (A) 0.5 k/uL (0-1.0); Monocytes % (A) 6 %; Neutrophils # (A) 5.6 k/uL (1.3-7.7); Neutrophils % (A) 62 %; Platelet Count 230 k/uL (150-450); RBC 4.93 m/uL (4.30-5.90); RDW 12.8 % (11.5-15.5)
[2017-12-26 19:27] LABS: Amphetamine Screen,Urine Not Detected (NotDetected); Barbiturate Screen,Urine Not Detected (NotDetected); Benzodiazepines Screen,Urine Not Detected (NotDetected); Cocaine Screen,Urine Not Detected (NotDetected); Methadone Screen, Urine Not Detected (NotDetected); Opiate Screen,Urine Not Detected (NotDetected); Oxycodone Screen, Urine Not Detected (NotDetected); Partial Thromboplastin Time 25.8 sec (22.0-30.0); Phencyclidine Screen,Urine Not Detected (NotDetected); Prothrombin Time 9.7 sec (9.0-12.0); Tricyclic Antidepressant,Urine Not Detected (NotDetected); Urn Cannabinoid Scrn Detected (NotDetected)
[2017-12-26 19:29] LABS: Albumin 4.3 g/dL (3.5-5.0); Calcium 9.7 mg/dL (8.4-10.2); Potassium 4.4 mmol/L (3.5-5.1); Total Bilirubin 0.4 mg/dL (0.2-1.3); Total Protein 7.2 g/dL (6.3-8.2)
[2017-12-26 19:49] LABS: Creatine Kinase 93 U/L (55-170)
--- NOTE | 2017-12-26 20:00 | XR ---
EXAMINATION TYPE: XR chest 2V DATE OF EXAM: 12/26/2017 COMPARISON: 10/10/2017 HISTORY: TECHNIQUE: Frontal and lateral views of the chest are obtained. FINDINGS: Heart and mediastinum are normal. Lungs are clear. Diaphragm is normal. Bony thorax is int act. There are chest leads. IMPRESSION: Normal chest. No change.
[2017-12-26 20:02] LABS: Troponin I <0.012 ng/mL (0.000-0.034)
[2017-12-26 20:04] LABS: Creatine Kinase MB 6.1 ng/mL (0.0-2.4)
== END 2017-12-26 21:05 | disposition home or self-care (01) ==
LOC: EC 17:46
DX: R07.89 Other chest pain (principal); F17.200 Nicotine dependence, unspecified, uncomplicated; Z95.818 Presence of other cardiac implants and grafts; Z88.8 Allergy status to other drugs, medicaments and biological substances
CPT/HCPCS: 36415; 71046; 80053; 80306; 82550; 82553; 83735; 84484; 85025; 85610; 85730; 93005; 99284

== ENCOUNTER 2018-02-15 23:33 | Emergency (ER) | payer OTHER ==
[2018-02-15 23:55] VITALS: TEMP 98.7
[2018-02-16] MEDS ORDERED: IBUPROFEN 600 MG TAB PO STA (00:27)
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
[2018-02-16 01:56] VITALS: BP 121/64; PULSE 64; RESP 16
== END 2018-02-16 01:53 | disposition home or self-care (01) ==
LOC: EC 23:33
DX: S00.03XA Contusion of scalp, initial encounter (principal); F17.200 Nicotine dependence, unspecified, uncomplicated; Z88.8 Allergy status to other drugs, medicaments and biological substances; Y09 Assault by unspecified means; Y92.410 Unspecified street and highway as the place of occurrence of the external cause
CPT/HCPCS: 70450; 70486; 99284

== ENCOUNTER 2019-12-29 19:34 | Observation (INO) | payer OTHER ==
[2019-12-29] MEDS ORDERED: PANTOPRAZOLE 40 MG/10 ML VIAL IVP STA (20:11)
[2019-12-29] MEDS ORDERED: SODIUM CHLORIDE 0.9% 1,000 ML IV STA (20:11)
[2019-12-29] MEDS ORDERED: ONDANSETRON 4 MG/2 ML VIAL IVP STA (20:11)
--- NOTE | 2019-12-29 20:43 | ED ---
GI Bleed HPI - General Chief complaint: GI Bleed Stated complaint: GI Bleed Time Seen by Provider: 12/29/19 19:43 Source: patient Mode of arrival: ambulatory Limitations: no limitations - History of Present Illness Initial comments: Patient is a 54-year-old male presenting to the emergency Department with chief complaint bleeding in the stool. Patient reports today he went to [facility] and was going to be admitted for GI consult and scope. Patient reports he did not like to wait long because they would not give him any food.Patient reports over the last week he has developed diarrhea but today he noticed mix of dark stool with some red blood. Patient show pictures of some formed dark stool with streaks of blood. Patient reports he does not have any rectal or abdominal pain. Patient does report some dizziness where the room was spinning around him. Also reports nausea with intermittent nonbilious, nonbloody vomiting. [place] any urinary symptoms. Denies penile discharge, testicular pain or tenderness. Denies history of GI bleed. Does report history of hemorrhoids. Denies constantly taking NSAIDs for pain. - Related Data Home Medications Medication Instructions Recorded Confirmed ALPRAZolam [Xanax] 0.25 mg PO BID PRN 12/26/17 12/26/17 HYDROcodone/APAP 5-325MG [Matador 1 tab PO Q6HR PRN 12/26/17 12/26/17 5-325] Previous Rx's Medication Instructions Recorded Aspirin EC [Ecotrin Low Dose] 81 mg PO DAILY #30 tablet. 09/18/17 Simvastatin [Zocor] 20 mg PO HS 30 Days #30 tablet 09/18/17 buPROPion [Wellbutrin] 100 mg PO QAM 30 Days #30 tab 09/18/17 Allergies Allergy/AdvReac Type Severity Reaction Status Date / Time gemfibrozil [From Lopid] Allergy LEG Verified 02/15/18 23:55 CRAMPS,ANXIETY metoclopramide HCl Allergy Rapid Verified 02/15/18 23:55 [From Reglan] Heart Rate Review of Systems ROS Statement: Those systems with pertinent positive or pertinent negative responses have been documented in the HPI. ROS Other: All systems not noted in ROS Statement are negative. 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" History of Any Multi-Drug Resistant Organisms: None Reported Additional Past Surgical History / Comment(s): COLONOSCOPY,EGD Past Anesthesia/Blood Transfusion Reactions: No Reported Reaction Past Psychological History: Anxiety, Depression Smoking Status: Current every day smoker Past Alcohol Use History: Occasional Past Drug Use History: Marijuana - Past Family History Mother Family Medical History: GERD/Reflux Father Family Medical History: Cancer, Myocardial Infarction ([place]) General Exam Limitations: no limitations General appearance: alert, in no apparent distress Head exam: Present: atraumatic, normocephalic, normal inspection Eye exam: Present: normal appearance, PERRL, EOMI. Absent: scleral icterus, other (Conjunctival pallor) Pupils: Present: normal accommodation ENT exam: Present: normal exam, normal oropharynx, mucous membranes moist Neck exam: Present: normal inspection, full ROM. Absent: tenderness Respiratory exam: Present: normal lung sounds bilaterally. Absent: respiratory distress, wheezes, rales Cardiovascular Exam: Present: regular rate, normal rhythm, normal heart sounds GI/Abdominal exam: Present: soft. Absent: distended, tenderness, guarding, rebound Extremities exam: Present: normal inspection, full ROM, normal capillary refill Back exam: Present: normal inspection, full ROM Neurological exam: Present: alert, oriented X3 Psychiatric exam: Present: normal affect, normal mood Skin exam: Present: warm, dry, intact, normal color Course Vital Signs 12/29/19 12/29/19 19:36 21:12 Temperature 98.2 F Pulse Rate 100 91 Respiratory 18 18 Rate Blood Pressure 112/76 113/83 O2 Sat by Pulse 100 100 Oximetry Medical Decision Making - Medical Decision Making Patient is a 54-year-old male presenting to emergency Department with a chief complaint of blood in the stool. No signs of hemorrhoids on rectal examination. No abdominal pain. Patient was given antiemetics and fluids in emergency department along with Protonix. Hemoglobin at 12.4. Hemoccult positive. Patient will be admitted for further medical management with GI on consult. Vitals are stable. Patient resting comfortably. Nothing by mouth after midnight. Case discussed with Dr.Bayuden Topete physician is Dr.Sheet Dr. Reilly on consult - Lab Data Result diagrams: 12/29/19 20:45 12/29/19 20:45 Lab Results 12/29/19 12/29/19 12/29/19 Range/Units 20:45 20:45 20:45 WBC 7.3 (3.8-10.6) k/uL RBC 4.21 L (4.30-5.90) m/uL Hgb 12.4 L (13.0-17.5) gm/dL Hct 38.1 L (39.0-53.0) % MCV 90.5 (80.0-100.0) fL MCH 29.4 (25.0-35.0) pg MCHC 32.5 (31.0-37.0) g/dL RDW 12.5 (11.5-15.5) % Plt Count 283 (150-450) k/uL Neutrophils % 68 % Lymphocytes % 23 % Monocytes % 6 % Eosinophils % 1 % Basophils % 1 % Neutrophils # 5.0 (1.3-7.7) k/uL Lymphocytes # 1.7 (1.0-4.8) k/uL Monocytes # 0.4 (0-1.0) k/uL Eosinophils # 0.1 (0-0.7) k/uL Basophils # 0.0 (0-0.2) k/uL PT 9.5 (9.0-12.0) sec INR 0.9 (<1.2) APTT 25.2 (22.0-30.0) sec Sodium (137-145) mmol/L Potassium (3.5-5.1) mmol/L Chloride (98-107) mmol/L Carbon Dioxide (22-30) mmol/L Anion Gap mmol/L BUN (9-20) mg/dL Creatinine (0.66-1.25) mg/dL Est GFR (CKD-EPI)AfAm (>60 ml/min/1.73 sqM) Est GFR (CKD-EPI)NonAf (>60 ml/min/1.73 sqM) Glucose (74-99) mg/dL Calcium (8.4-10.2) mg/dL Total Bilirubin (0.2-1.3) mg/dL AST (17-59) U/L ALT (4-49) U/L Alkaline Phosphatase (38-126) U/L Total Protein (6.3-8.2) g/dL Albumin (3.5-5.0) g/dL Stool Occult Blood Positive (Negative) Blood Type Blood Type Recheck Bld Type Recheck Status Antibody Screen Spec Expiration Date 12/29/19 12/29/19 Range/Units 20:45 20:45 WBC (3.8-10.6) k/uL RBC (4.30-5.90) m/uL Hgb (13.0-17.5) gm/dL Hct (39.0-53.0) % MCV (80.0-100.0) fL MCH (25.0-35.0) pg MCHC (31.0-37.0) g/dL RDW (11.5-15.5) % Plt Count (150-450) k/uL Neutrophils % % Lymphocytes % % Monocytes % % Eosinophils % % Basophils % % Neutrophils # (1.3-7.7) k/uL Lymphocytes # (1.0-4.8) k/uL Monocytes # (0-1.0) k/uL Eosinophils # (0-0.7) k/uL Basophils # (0-0.2) k/uL PT (9.0-12.0) sec INR (<1.2) APTT (22.0-30.0) sec Sodium 136 L (137-145) mmol/L Potassium 3.9 (3.5-5.1) mmol/L Chloride 107 (98-107) mmol/L Carbon Dioxide 24 (22-30) mmol/L Anion Gap 5 mmol/L BUN 10 (9-20) mg/dL Creatinine 1.17 (0.66-1.25) mg/dL Est GFR (CKD-EPI)AfAm 81 (>60 ml/min/1.73 sqM) Est GFR (CKD-EPI)NonAf 70 (>60 ml/min/1.73 sqM) Glucose 116 H (74-99) mg/dL Calcium 8.9 (8.4-10.2) mg/dL Total Bilirubin 0.6 (0.2-1.3) mg/dL AST 20 (17-59) U/L ALT 11 (4-49) U/L Alkaline Phosphatase 63 (38-126) U/L Total Protein 6.5 (6.3-8.2) g/dL Albumin 3.3 L (3.5-5.0) g/dL Stool Occult Blood (Negative) Blood Type O Positive Blood Type Recheck No Previous Record Bld Type Recheck Status CABO Indicated Antibody Screen NEGATIVE Spec Expiration Date 01/01/2020 - 2344 Disposition Clinical Impression: Melena, Anemia, Dizziness, Weakness Disposition: ADMITTED IP TO THIS [facility] Condition: Stable Instructions (If sedation given, give patient instructions): Gastrointestinal Bleeding (ED) Additional Instructions: Patient will be admitted Is patient prescribed a controlled substance at d/c from ED?: No Referrals: [facility] [Primary Care Provider] - 1-2 days Time of Disposition: 22:24
[2019-12-29 20:57] LABS: Basophils % (A) 1 %; Eosinophils # (A) 0.1 k/uL (0-0.7); Eosinophils % (A) 1 %; HCT 38.1 % (39.0-53.0); HGB 12.4 gm/dL (13.0-17.5); Lymphocytes # (A) 1.7 k/uL (1.0-4.8); Lymphocytes % (A) 23 %; MCH 29.4 pg (25.0-35.0); MCHC 32.5 g/dL (31.0-37.0); MCV 90.5 fL (80.0-100.0); Mean Platelet Volume 8.4; Monocytes # (A) 0.4 k/uL (0-1.0); Monocytes % (A) 6 %; Neutrophils % (A) 68 %; Platelet Count 283 k/uL (150-450); RBC 4.21 m/uL (4.30-5.90); RDW 12.5 % (11.5-15.5); WBC 7.3 k/uL (3.8-10.6)
[2019-12-29 21:06] LABS: INR 0.9 (<1.2); Partial Thromboplastin Time 25.2 sec (22.0-30.0); Prothrombin Time 9.5 sec (9.0-12.0)
[2019-12-29 21:10] LABS: Albumin 3.3 g/dL (3.5-5.0); Calcium 8.9 mg/dL (8.4-10.2); Potassium 3.9 mmol/L (3.5-5.1); Total Bilirubin 0.6 mg/dL (0.2-1.3); Total Protein 6.5 g/dL (6.3-8.2)
[2019-12-29] MEDS ORDERED: NALOXONE 0.4 MG/ML 1 ML VIAL IV PRN (22:19)
[2019-12-29] MEDS ORDERED: ONDANSETRON 4 MG/2 ML VIAL IVP PRN (22:19)
[2019-12-29] MEDS ORDERED: ACETAMINOPHEN TAB 325 MG TAB PO PRN (22:19)
[2019-12-29] MEDS ORDERED: MORPHINE SULFATE 4 MG/ML SYRINGE IV PRN (22:19)
[2019-12-29] MEDS ORDERED: LORazepam 2 MG/ML INJ IV PRN (22:19)
[2019-12-29] MEDS ORDERED: HYDROcodone/APAP 5-325MG 1 EACH TAB PO STA (22:27)
[2019-12-29] MEDS: SODIUM CHLORIDE 0.9% 1,000 ML IV SCH (22:58)
[2019-12-30] MEDS ORDERED: QUEtiapine 50 MG TAB PO STA (00:07)
[2019-12-30] MEDS ORDERED: PANTOPRAZOLE 40 MG/10 ML VIAL IV SCH (09:00)
[2019-12-30] MEDS: HYDROmorphone 0.5 MG/0.5 ML SYRINGE IVP PRN ×3 (09:06→20:54)
[2019-12-30] MEDS ORDERED: MORPHINE SULFATE 4 MG/ML SYRINGE IVP PRN (10:25)
[2019-12-30] MEDS ORDERED: DICYCLOMINE 20 MG TAB PO PRN (10:54)
--- NOTE | 2019-12-30 11:44 | P.HPIM ---
History of Present Illness patient is 54-year-old male came in with complaints of dark stools and some blood in the stools. had lower GI endoscopy in the past which showed some kind of colitis details are not available at this time. Patient's or dark s tools as well as some bright red blood with clots. Patient denied any fever chills patient and nausea vomiting hematemesis. Patient is comparing of abdominal pain in the left lower quadrant crampy in nature [id number] in severity. Review of Systems REVIEW OF SYSTEMS: CONSTITUTIONAL: No fever, no malaise, no fatigue. HEENT: No recent visual problems or hearing problems. Denied any sore throat. CARDIOVASCULAR: No chest pain, orthopnea, PND, no palpitations, no syncope. PULMONARY: No shortness of breath, no cough, no hemoptysis. GASTROINTESTINAL:as mentioned in HPI NEUROLOGICAL: No headaches, no weakness, no numbness. HEMATOLOGICAL: Denies any bleeding or petechiae. GENITOURINARY: Denies any burning micturition, frequency, or urgency. MUSCULOSKELETAL/RHEUMATOLOGICAL: Denies any joint pain, swelling, or any muscle pain. ENDOCRINE: Denies any polyuria or polydipsia. The rest of the 14-point review of systems is negative. Past Medical History Past Medical History: COPD, GERD/Reflux, Hyperlipidemia, Osteoarthritis (OA), Pneumonia Additional Past Medical History / Comment(s): Lower GI bleed, hemorrhoids, constipation, involuntary movements with reglan use, back pain, L shoulder pain d/t injury 2 yrs ago, RLS, migraines. History of Any Multi-Drug Resistant Organisms: None Reported Additional Past Surgical History / Comment(s): COLONOSCOPY,EGD Past Anesthesia/Blood Transfusion Reactions: No Reported Reaction Smoking Status: Current every day smoker - Past Family History Mother Family Medical History: GERD/Reflux Father Family Medical History: Cancer, Myocardial Infarction ([place]) Additional Family Medical History / Comment(s): Cancer in abdominal area, of a massive [place] at the age of 67yrs. Medications and Allergies Home Medications Medication Instructions Recorded Confirmed Type Aspirin EC [Ecotrin Low Dose] 81 mg PO DAILY #30 tablet. 09/18/17 12/29/19 Rx Acyclovir 400 mg PO TID 12/29/19 12/29/19 History Cholecalciferol [Vitamin D3 (25 5,000 unit PO DAILY 12/29/19 12/29/19 History Mcg = 1000 Iu)] Loratadine [Claritin] 10 mg PO DAILY 12/29/19 12/29/19 History Mirtazapine [Remeron] 15 mg PO HS 12/29/19 12/29/19 History Rosuvastatin Calcium [Crestor] 40 mg PO DAILY 12/29/19 12/29/19 History buPROPion XL [Wellbutrin XL] 150 mg PO DAILY 12/29/19 12/29/19 History busPIRone HCl [Buspar] 10 mg PO BID 12/29/19 12/29/19 History rOPINIRole HCL [Requip] 0.5 mg PO HS 12/29/19 12/29/19 History Allergies Allergy/AdvReac Type Severity Reaction Status Date / Time gemfibrozil [From Lopid] Allergy LEG Verified 12/29/19 22:25 CRAMPS,ANXIETY metoclopramide HCl Allergy Rapid Verified 12/29/19 22:25 [From Reglan] Heart Rate Physical Exam Vitals: Vital Signs Temp Pulse Resp BP Pulse Ox 12/30/19 07:40 55 L 18 96/54 98 12/30/19 05:47 55 L 18 96/54 98 12/29/19 23:30 60 18 93/61 100 12/29/19 22:54 59 L 18 115/87 100 12/29/19 21:12 91 18 113/83 100 12/29/19 19:36 98.2 F 100 18 112/76 100 Intake and Output 12/29/19 12/30/19 12/30/19 22:59 06:59 14:59 Other: Weight 63.503 kg 63.503 kg PHYSICAL EXAMINATION: GENERAL: The patient is alert and oriented x3, not in any acute distress. Well developed, well nourished. HEENT: Pupils are round and equally reacting to light. EOMI. No scleral icterus. No conjunctival pallor. Normocephalic, atraumatic. No pharyngeal erythema. No thyromegaly. CARDIOVASCULAR: S1 and S2 present. No murmurs, rubs, or gallops. PULMONARY: Chest is clear to auscultation, no wheezing or crackles. ABDOMEN: Soft, nontender, nondistended, normoactive bowel sounds. No palpable organomegaly. MUSCULOSKELETAL: No joint swelling or deformity. EXTREMITIES: No cyanosis, clubbing, or pedal edema. NEUROLOGICAL: Gross neurological examination did not reveal any focal deficits. SKIN: No rashes. Results CBC & Chem 7: 12/29/19 20:45 12/29/19 20:45 Labs: Abnormal Lab Results - Last 24 Hours (Table) 12/29/19 12/29/19 Range/Units 20:45 20:45 RBC 4.21 L (4.30-5.90) m/uL Hgb 12.4 L (13.0-17.5) gm/dL Hct 38.1 L (39.0-53.0) % Sodium 136 L (137-145) mmol/L Glucose 116 H (74-99) mg/dL Albumin 3.3 L (3.5-5.0) g/dL Thrombosis Risk Factor Assmnt - Choose All That Apply Any of the Below Risk Factors Present?: Yes Each Factor Represents 1 point: Abnormal pulmonary function (COPD), Age 41-60 years Other Risk Factors: No Other congenital or acquired thrombophilia - If yes, enter type in comment: No Thrombosis Risk Factor Assessment Total Risk Factor Score: 2 Thrombosis Risk Factor Assessment Level: Low Risk Assessment and Plan Plan: -acute GI bleed: Most probably upper GI bleed I'll also cannot rule out lower GI bleed patient will undergo upper and lower GI endoscopy. continue with IV fluidspatient can be transferred out of stepdown unit as patient is not actively bleeding. His last blood in the stools or dark stools was couple days ago patient didn't have any bowel movement distress today.patient is on Protonix at this time which will change to twice a day -to be without any acute exacerbation nicotine cessation counseling was provided. d-hyperlipidemia -Depression. -history of marijuana use: Counseling was provided
[2019-12-30] MEDS: SODIUM CHLORIDE 0.9% 1,000 ML IV SCH ×2 (11:59→20:55)
[2019-12-30] MEDS: NICOTINE 14MG/24HR PATCH TRANSDERM SCH (12:40)
[2019-12-30 13:56] VITALS: BMI 21.2
[2019-12-30] MEDS ORDERED: BISACODYL 5 MG TABLET.DR PO STA (15:25)
[2019-12-30] MEDS: ACYCLOVIR 200 MG CAP PO SCH ×2 (16:35→20:53)
[2019-12-30] MEDS ORDERED: PEG 3350-NA SULF,BICARB,CL/KCL 4,000 ML BOTTLE PO ONE (17:00)
--- NOTE | 2019-12-30 20:20 | P.CONS ---
History of Present Illness - Reason for Consult Consult date: 12/30/19 GI bleed, melena Requesting physician: Mirtha Mtz - Chief Complaint GI bleed - History of Present Illness 54-year-old male with a history of COPD, osteoarthritis, gastritis, and prior episodes of suspected GI bleed who presented to the hospital due to concerns over melanotic stool and GI bleeding. The patient reports approximately 7 days of loose stool approximately 3-4 per day. He reports that these bowel movements were associated with lower abdominal cramping and that they were dark black in nature. He also noted some bright red blood mixed with the stool. He denies any NSAID use or history of peptic ulcer disease. The patient has had endoscopic evaluation in the past with EGD and colonoscopy in 2015 with evidence of mild gastritis and biopsies suggestive of possible terminal ileitis. He underwent repeat endoscopic evaluation 2 years ago which was significant for a hiatal hernia and a poor colon prep. No prior treatment for inflammatory bowel disease. On presentation stool testing was positive for occult blood. WBC 7.3, hemoglobin 12.4, platelet count 283,000. Review of Systems REVIEW OF SYSTEMS: CONSTITUTIONAL: Denies any fevers, chills, weight change or fatigue. CARDIOVASCULAR: Denies any chest pain, palpitations high or low blood pressures RESPIRATORY: Denies any shortness of breath, hemoptysis or cough. GENITOURINARY: No dysuria or hematuria. MUSCULOSKELETAL: No weakness reported. SKIN: Denies any new rashes or lesions, jaundice or pallor. PSYCHIATRIC: Denies any current depressed mood or anxiety. NEUROLOGY: Denies headache, denies any new focal deficits. EARS/NOSE/THROAT: No recent hearing change, congestion, nasal discharge or sore throat. EYES: No pain in eyes, discharge or change in vision. GASTROINTESTINAL: As per HPI. Past Medical History Past Medical History: COPD, GERD/Reflux, Hyperlipidemia, Osteoarthritis (OA), Pneumonia Additional Past Medical History / Comment(s): Lower GI bleed, hemorrhoids, constipation, involuntary movements with reglan use, back pain, L shoulder pain d/t injury 2 yrs ago, RLS, migraines. History of Any Multi-Drug Resistant Organisms: None Reported Additional Past Surgical History / Comment(s): COLONOSCOPY,EGD Past Anesthesia/Blood Transfusion Reactions: No Reported Reaction Smoking Status: Current every day smoker - Past Family History Mother Family Medical History: GERD/Reflux Father Family Medical History: Cancer, Myocardial Infarction ([place]) Additional Family Medical History / Comment(s): Cancer in abdominal area, of a massive [place] at the age of 67yrs. Medications and Allergies Home Medications Medication Instructions Recorded Confirmed Type Aspirin EC [Ecotrin Low Dose] 81 mg PO DAILY #30 tablet. 09/18/17 12/29/19 Rx Acyclovir 400 mg PO TID 12/29/19 12/29/19 History Cholecalciferol [Vitamin D3 (25 5,000 unit PO DAILY 12/29/19 12/29/19 History Mcg = 1000 Iu)] Loratadine [Claritin] 10 mg PO DAILY 12/29/19 12/29/19 History Mirtazapine [Remeron] 15 mg PO HS 12/29/19 12/29/19 History Rosuvastatin Calcium [Crestor] 40 mg PO DAILY 12/29/19 12/29/19 History buPROPion XL [Wellbutrin XL] 150 mg PO DAILY 12/29/19 12/29/19 History busPIRone HCl [Buspar] 10 mg PO BID 12/29/19 12/29/19 History rOPINIRole HCL [Requip] 0.5 mg PO HS 12/29/19 12/29/19 History Allergies Allergy/AdvReac Type Severity Reaction Status Date / Time gemfibrozil [From Lopid] Allergy LEG Verified 12/29/19 22:25 CRAMPS,ANXIETY metoclopramide HCl Allergy Rapid Verified 12/29/19 22:25 [From Reglan] Heart Rate Physical Exam Vitals: Vital Signs Temp Pulse Resp BP Pulse Ox 12/30/19 07:40 55 L 18 96/54 98 12/30/19 05:47 55 L 18 96/54 98 12/29/19 23:30 60 18 93/61 100 12/29/19 22:54 59 L 18 115/87 100 12/29/19 21:12 91 18 113/83 100 12/29/19 19:36 98.2 F 100 18 112/76 100 Intake and Output 12/29/19 12/30/19 12/30/19 22:59 06:59 14:59 Other: Weight 63.503 kg 63.503 kg On physical examination, patient appears comfortable in no apparent distress. HEAD: Normocephalic, atraumatic. EYES: No scleral icterus. No conjunctival injection. MOUTH: No lesions, tongue midline. NECK: Trachea midline, no gross abnormalities. CHEST: Clear to auscultation with no wheezing or rhonchi appreciated. HEART: Regular rate and rhythm. ABDOMEN: Soft, thin and mildly tender. Bowel sounds are positive. No organomegaly. No guarding or rigidity. EXTREMITIES: No pedal edema. SKIN: No rashes, no jaundice. NEUROLOGIC: Alert and oriented x3. No focal deficits. Results CBC & Chem 7: 12/29/19 20:45 12/29/19 20:45 Labs: Abnormal Lab Results - Last 24 Hours (Table) 12/29/19 12/29/19 Range/Units 20:45 20:45 RBC 4.21 L (4.30-5.90) m/uL Hgb 12.4 L (13.0-17.5) gm/dL Hct 38.1 L (39.0-53.0) % Sodium 136 L (137-145) mmol/L Glucose 116 H (74-99) mg/dL Albumin 3.3 L (3.5-5.0) g/dL Assessment and Plan (1) Melena Narrative/Plan: 54-year-old male presenting with 1 week of lower abdominal cramping with increased frequency of bowel movements and associated dark black stool. Denies any NSAIDs or history of peptic ulcer disease. Has undergone endoscopic evaluation in 2014 with EGD significant for mild gastritis and biopsies of terminal ileum significant for some evidence of inflammation and again 2 years ago with a small hiatal hernia noted and a poor prep on colonoscopy. Hemoglobin normal at 12.4 on presentation. Stool testing positive for occult blood. Unclear etiology with plan for endoscopic evaluation for further workup. Current Visit: Yes Status: Acute Code(s): K92.1 - MELENA SNOMED Code(s): 9629774 (2) Positive occult stool blood test Current Visit: Yes Status: Acute Code(s): R19.5 - OTHER FECAL ABNORMALITIES SNOMED Code(s): 44336405 Plan: Supportive care Clear liquid diet Continue to monitor hemoglobin and hematocrit and transfuse as needed Continue Protonix therapy Bentyl therapy for cramping in Stool studies ordered Plan for EGD and colonoscopy tomorrow for further evaluation Nothing by mouth after midnight Thank you for allowing us to participate in the care of the patient
[2019-12-30] MEDS: busPIRone HCl 10 MG TAB PO SCH (20:53)
[2019-12-30] MEDS: PANTOPRAZOLE 40 MG/10 ML VIAL IV SCH (20:54)
[2019-12-30] MEDS ORDERED: MIRTAZAPINE 15 MG TAB PO SCH (21:00)
[2019-12-31] MEDS: HYDROmorphone 0.5 MG/0.5 ML SYRINGE IVP PRN ×3 (00:31→15:25)
[2019-12-31 07:10] LABS: HCT 34.3 % (39.0-53.0); HGB 11.6 gm/dL (13.0-17.5); MCH 31.1 pg (25.0-35.0); MCHC 33.8 g/dL (31.0-37.0); MCV 91.9 fL (80.0-100.0); Mean Platelet Volume 8.6; Platelet Count 276 k/uL (150-450); RBC 3.73 m/uL (4.30-5.90); RDW 12.7 % (11.5-15.5)
[2019-12-31 07:11] LABS: African American GFR (CKD) >90 (>60 ml/min/1.73 sqM); Anion Gap 4 mmol/L; Blood Urea Nitrogen 5 mg/dL (9-20); Calcium 8.5 mg/dL (8.4-10.2); Carbon Dioxide 26 mmol/L (22-30); Chloride 111 mmol/L (98-107); Glucose 79 mg/dL (74-99); Non-African American GFR(CKD) >90 (>60 ml/min/1.73 sqM); Potassium 3.8 mmol/L (3.5-5.1); Sodium 141 mmol/L (137-145)
[2019-12-31] MEDS ORDERED: ATORVASTATIN 80 MG TAB PO SCH (09:00)
[2019-12-31] MEDS ORDERED: buPROPion XL 150 MG TAB.ER.24H PO SCH (09:00)
[2019-12-31 09:17] LABS: Erythrocyte Sedimentation Rate 13 mm/hr (0-15)
[2019-12-31 09:22] LABS: C Reactive Protein <5.0 mg/L (<10.0)
[2019-12-31] MEDS: PANTOPRAZOLE 40 MG/10 ML VIAL IV SCH (09:40)
[2019-12-31] MEDS: NICOTINE 14MG/24HR PATCH TRANSDERM SCH (09:40)
[2019-12-31] MEDS: ACYCLOVIR 200 MG CAP PO SCH ×2 (09:40→17:46)
[2019-12-31] MEDS: busPIRone HCl 10 MG TAB PO SCH (09:40)
[2019-12-31] MEDS: SODIUM CHLORIDE 0.9% 1,000 ML IV SCH (09:42)
--- NOTE | 2019-12-31 13:39 | P.DS ---
Providers Date of admission: 12/31/19 09:56 Attending physician: Gabriel Arana MD Consults: 12/29/19 22:19 Consult Physician Stat Consulting Provider: Roberto Reilly Consult Reason/Comments: GI bleed, anemia Do you want consulting provider notified?: Yes Primary care physician: [facility] Course: Patient is admitted for possible GI bleeding most probably upper GI bleed and patient undergo colonoscopy and upper GI endoscopy depending on the results if cleared by gastric body patient will be discharged on Prilosec for 14 days. PHYSICAL EXAMINATION: GENERAL: The patient is alert and oriented x3, not in any acute distress. Well developed, well nourished. HEENT: Pupils are round and equally reacting to light. EOMI. No scleral icterus. No conjunctival pallor. Normocephalic, atraumatic. No pharyngeal erythema. No thyromegaly. CARDIOVASCULAR: S1 and S2 present. No murmurs, rubs, or gallops. PULMONARY: Chest is clear to auscultation, no wheezing or crackles. ABDOMEN: Soft, nontender, nondistended, normoactive bowel sounds. No palpable organomegaly. MUSCULOSKELETAL: No joint swelling or deformity. EXTREMITIES: No cyanosis, clubbing, or pedal edema. NEUROLOGICAL: Gross neurological examination did not reveal any focal deficits. SKIN: No rashes. His lipid dementia from yesterday for further details of hospital admission course and medical problems that were addressed during this hospitalization Patient Condition at Discharge: Stable Plan - Discharge Summary Discharge Rx Participant: No New Discharge Prescriptions: New Omeprazole [PriLOSEC] 40 mg PO AC-BRKFST #14 capsule. Continue Aspirin EC [Ecotrin Low Dose] 81 mg PO DAILY #30 tablet. rOPINIRole HCL [Requip] 0.5 mg PO HS buPROPion XL [Wellbutrin XL] 150 mg PO DAILY Mirtazapine [Remeron] 15 mg PO HS Cholecalciferol [Vitamin D3 (25 Mcg = 1000 Iu)] 5,000 unit PO DAILY busPIRone HCl [Buspar] 10 mg PO BID Rosuvastatin Calcium [Crestor] 40 mg PO DAILY Loratadine [Claritin] 10 mg PO DAILY Acyclovir 400 mg PO TID Discontinued Famotidine [Pepcid] 20 mg PO DAILY Cimetidine [Tagamet] 400 mg PO BID Discharge Medication List Aspirin EC [Ecotrin Low Dose] 81 mg PO DAILY #30 tablet. 09/18/17 [Rx] Acyclovir 400 mg PO TID 12/29/19 [History] Cholecalciferol [Vitamin D3 (25 Mcg = 1000 Iu)] 5,000 unit PO DAILY 12/29/19 [History] Loratadine [Claritin] 10 mg PO DAILY 12/29/19 [History] Mirtazapine [Remeron] 15 mg PO HS 12/29/19 [History] Rosuvastatin Calcium [Crestor] 40 mg PO DAILY 12/29/19 [History] buPROPion XL [Wellbutrin XL] 150 mg PO DAILY 12/29/19 [History] busPIRone HCl [Buspar] 10 mg PO BID 12/29/19 [History] rOPINIRole HCL [Requip] 0.5 mg PO HS 12/29/19 [History] Omeprazole [PriLOSEC] 40 mg PO AC-BRKFST #14 capsule. 12/31/19 [Rx] Follow up Appointment(s)/Referral(s): [facility] [Primary Care Provider] - 1-2 days Patient Instructions/Handouts: Gastrointestinal Bleeding (ED) Activity/Diet/Wound Care/Special Instructions: Patient will be admitted Discharge Disposition: HOME SELF-CARE
[2019-12-31] MEDS ORDERED: PROPOFOL 10 MG/ML 20 ML VIAL IV ONE (14:05)
[2019-12-31] MEDS ORDERED: MIDAZOLAM 2 MG/2 ML VIAL ONE (14:05)
[2019-12-31] MEDS ORDERED: IV FLUID CONTINUATION 1,000 ML IV ONE (14:05)
[2019-12-31] MEDS ORDERED: LIDOCAINE 1% INJ 10MG/ML (20 ML MDV) ONE (14:05)
[2019-12-31] MEDS ORDERED: fentaNYL (PF) 50 MCG/ML 2 ML AMP ONE (14:05)
[2019-12-31 14:10] VITALS: RESP 16
--- NOTE | 2019-12-31 14:48 | P.PCN ---
Date of Procedure: 12/31/19 Description of Procedure: Brief history: 54-year-old male with a history of COPD, osteoarthritis, gastritis, and prior episodes of suspected GI bleed who presented to the hospital due to concerns over melanotic stool and GI bleeding. The patient reports approximately 7 days of loose stool approximately 3-4 per day. He reports that these bowel movements were associated with lower abdominal cramping and that they were dark black in nature. He also noted some bright red blood mixed with the stool. He denies any NSAID use or history of peptic ulcer disease. The patient has had endoscopic evaluation in the past with EGD and colonoscopy in 2015 with evidence of mild gastritis and biopsies suggestive of possible terminal ileitis. He underwent repeat endoscopic evaluation 2 years ago which was significant for a hiatal hernia and a poor colon prep. No prior treatment for inflammatory bowel disease. On presentation stool testing was positive for occult blood. WBC 7.3, hemoglobin 12.4, platelet count 283,000. Procedure performed: Esophagogastroduodenoscopy with biopsy Colonoscopy with biopsy Estimated blood loss: Minimal. Preoperative diagnosis: Melena, diarrhea, altered bowel function Anesthesia: MAC Procedure: After informed consent was obtained from the patient was brought into the endoscopy unit and IV sedation was administered by anesthesia under continuous monitoring. Initially upper endoscopy was done. The Olympus GF 190 video endoscope was inserted into the mouth and esophagus intubated without any difficulty and was gradually advanced into the stomach and duodenum and carefully examined. The bulb and second part of the duodenum appeared normal, With biopsies taken. The scope was then withdrawn into the stomach adequately insufflated with air and upon careful examination the antrum and body, cardia and fundus appeared normal, With mild punctate erythema suggestive of mild gastritis and biopsies taken of the antrum and body. The scope was then withdrawn into the esophagus. The GE junction was located at 37 cm to the incisors, With a 3 cm hiatal hernia noted. It appeared regular with no erythema erosions or ulcerations. Rest of the esophagus appeared normal. Patient tolerated the procedure well. At this time the patient continued to remain sedation. Initial digital rectal examination was normal. Olympus CF 190 video colonoscope was then inserted into the rectum and gradually advanced to the cecum without any difficulty. Careful examination was performed as the scope was gradually being withdrawn. The prep was excellent. The cecum, ascending colon, transverse colon, descending colon, sigmoid colon and rectum appeared normal, With random biopsies taken of the right colon, transverse colon, left colon and rectum. The terminal ileum was intubated with mild to moderate erythema suggestive of mild to moderate ileitis with biopsies taken. Retroflexion was performed in the rectum and no lesions were noted. Patient tolerated the procedure well. Impression: 1. Mild gastritis antrum body, biopsied. Moderate hiatal hernia. Duodenal biopsies. 2. Mild to moderate ileitis with biopsies taken. Otherwise normal-appearing colon from rectum to cecum with random biopsies taken of the right colon, transverse colon, left colon and rectum. Recommendations: Findings of this examination were discussed with the patient as well as The medical team. At this time patient will be scheduled for follow-up visit in 3 weeks in the GI clinic. He'll be given a steroid taper. Consideration will be for initiation of maintenance therapy if chronic ileal inflammation is again noted on biopsies of the terminal ileum.
[2019-12-31 17:27] VITALS: TEMP 97.4
[2019-12-31 17:28] VITALS: BP 125/75; PULSE 48
--- NOTE | 2020-01-02 01:55 | CDI ---
Documentation Clarification Form Date: 01/02/2020 From: Israel Aleman Phone: If you have a question about this query, please contact Riana Self, Marine Engine [employer]inist at [phone] between 8am and 5pm. Admit Date: 12/31/2019 Discharge Date: 12/31/2019 Patient Name: Charly Bragg Visit Number: [id number] ATTENTION: The Clinical Documentation Specialists (CDI) and [facility] Coding Staff appreciate your assistance in clarifying documentation. Please respond to the clarification below the line at the bottom and electronically sign. The CDI & [facility] Coding staff will review the response and follow-up if needed. Please note: Queries are made part of the Legal Health Record. If you have any questions, please contact the author of this message via ITS. Dear Mirtha Reynoso., Anemia is documented in the ED as "Anemia" and in discharge under consult reason :Anemia. History/Risk Factors: GI Bleed, Gastritis Hemoglobin: 12.4L , 11.6 L Hematocrit: 34.3L Treatment: Continue to monitor hemoglobin and hematocrit and transfuse as needed. Patient is admitted for possible GI bleeding most probably upper GI bleed. In order to capture the severity of condition, please clarify the type of anemia and etiology if known:. Acute blood loss anemia Iron Deficiency anemia Unable to determine Other, please specify Already documented patient has acute blood loss anemia MTDD
== END 2019-12-31 18:11 | disposition home or self-care (01) ==
LOC: EC 19:34 → 4SSUR 22:12 → 3SCARD 12-30 05:31 → OBSVTOIN 12-31 09:56 → INTOOBSV 12-31 09:56 → UNDODISIN 12-31 18:11
PROVIDERS: ADMIT Internal Medicine; ATTEND Internal Medicine
DX: K29.81 Duodenitis with bleeding (principal); K29.51 Unspecified chronic gastritis with bleeding; K52.9 Noninfective gastroenteritis and colitis, unspecified; K44.9 Diaphragmatic hernia without obstruction or gangrene; D62 Acute posthemorrhagic anemia; R10.32 Left lower quadrant pain; J44.9 Chronic obstructive pulmonary disease, unspecified; K21.9 Gastro-esophageal reflux disease without esophagitis; E78.5 Hyperlipidemia, unspecified; M19.90 Unspecified osteoarthritis, unspecified site; G43.909 Migraine, unspecified, not intractable, without status migrainosus; B00.9 Herpesviral infection, unspecified; F60.3 Borderline personality disorder; F41.9 Anxiety disorder, unspecified; F32.9 Major depressive disorder, single episode, unspecified; F17.210 Nicotine dependence, cigarettes, uncomplicated; G25.81 Restless legs syndrome; I49.9 Cardiac arrhythmia, unspecified; Z03.818 Encounter for observation for suspected exposure to other biological agents ruled out; Z88.8 Allergy status to other drugs, medicaments and biological substances; Z98.890 Other specified postprocedural states; Z79.82 Long term (current) use of aspirin; Z79.899 Other long term (current) drug therapy; Z87.01 Personal history of pneumonia (recurrent); Z87.19 Personal history of other diseases of the digestive system; Z87.828 Personal history of other (healed) physical injury and trauma; Z71.6 Tobacco abuse counseling; Z83.79 Family history of other diseases of the digestive system; Z82.49 Family history of ischemic heart disease and other diseases of the circulatory system; Z80.8 Family history of malignant neoplasm of other organs or systems
CPT/HCPCS: 96376 ×2; 96361 ×3; 96375 ×3; 96374; 99285; 36415; 86900; 86901; 88305; 80053; 80048; 85652 ×2; 85025; 85027; 85610; 85730; 86850; 86140 ×2; 82272; 87045; 83630; 87046; 45380; 43239; G0378 ×4; U0003; S4990 ×2; J2250; J2270; J2405; J2001; J3010; J2704; C9113 ×3; J1170 ×2

== ENCOUNTER → 2020-01-06 | Outpatient (CLI) | payer OTHER ==
--- NOTE | 2020-01-07 07:14 | XR ---
EXAMINATION TYPE: XR knee complete bilateral DATE OF EXAM: 01/06/2020 CLINICAL HISTORY: pain TECHNIQUE: Three views of the bilateral knees are obtained. COMPARISON: None. FINDINGS: There is no acute fracture/dislocation. The tri-compartment joint spaces appear within no rmal limits. The overlying soft tissue appears unremarkable. IMPRESSION: There is no acute fracture or dislocation.ICD 10 NO FRACTURE, INITIAL EVALUATION
--- NOTE | 2020-01-07 07:15 | XR ---
EXAMINATION TYPE: XR shoulder complete LT DATE OF EXAM: 01/06/2020 CLINICAL HISTORY: pain COMPARISON: NONE TECHNIQUE: Three views of the left shoulder are obtained. FINDINGS: There is no acute fracture/dislocation evident. The acromioclavicular and glenohumeral vaishali int spaces appear within normal limits. The visualized ribs are intact and unremarkable. IMPRESSION: 1. There is no acute fracture or dislocation. ICD 10 NO FRACTURE, INITIAL EVALUATION
== END | disposition home or self-care (01) ==
LOC: RADXRMAIN 16:03
PROVIDERS: ATTEND Nurse Practitioner
DX: M25.512 Pain in left shoulder (principal); M25.561 Pain in right knee; M25.562 Pain in left knee

== ENCOUNTER 2020-11-25 00:41 | Emergency (ER) | payer OTHER ==
[2020-11-25 00:46] VITALS: TEMP 97.6
[2020-11-25] MEDS ORDERED: IPRATROPIUM-ALBUTEROL 3 ML NEB INHALATION PRN (00:48)
[2020-11-25] MEDS ORDERED: ALBUTEROL HFA INHALER INHALATION STA (00:48)
[2020-11-25] MEDS ORDERED: methylPREDNISolone SOD SUCCI 125 MG/2 ML VIAL IV STA (00:48)
[2020-11-25] MEDS ORDERED: IPRATROPIUM-ALBUTEROL 3 ML NEB INHALATION STA ×2 (00:48→01:23)
[2020-11-25] MEDS ORDERED: ACETAMINOPHEN TAB 500 MG TAB PO STA (00:48)
--- NOTE | 2020-11-25 00:48 | ED ---
SOB HPI - General Chief Complaint: Shortness of Breath Stated Complaint: ANAI Time Seen by Provider: 11/25/20 00:47 Source: patient Mode of arrival: ambulatory Limitations: no limitations - Related Data Home Medications Medication Instructions Recorded Confirmed Acyclovir 400 mg PO TID 12/29/19 12/29/19 Cholecalciferol [Vitamin D3 (25 5,000 unit PO DAILY 12/29/19 12/29/19 Mcg = 1000 Iu)] Loratadine [Claritin] 10 mg PO DAILY 12/29/19 12/29/19 Mirtazapine [Remeron] 15 mg PO HS 12/29/19 12/29/19 Rosuvastatin Calcium [Crestor] 40 mg PO DAILY 12/29/19 12/29/19 buPROPion XL [Wellbutrin XL] 150 mg PO DAILY 12/29/19 12/29/19 busPIRone HCl [Buspar] 10 mg PO BID 12/29/19 12/29/19 rOPINIRole HCL [Requip] 0.5 mg PO HS 12/29/19 12/29/19 Previous Rx's Medication Instructions Recorded Aspirin EC [Ecotrin Low Dose] 81 mg PO DAILY #30 tablet. 09/18/17 Omeprazole [PriLOSEC] 40 mg PO AC-BRKFST #14 capsule. 12/31/19 predniSONE 10 mg PO DAILY #74 tab 12/31/19 Albuterol Sulfate [Proair Hfa] 1 - 2 puff INHALATION Q4H PRN #1 11/25/20 inhaler Azithromycin [Zithromax Z-pack (6 0 mg PO DIRECTED #1 pack 11/25/20 tabs)] predniSONE 50 mg PO DAILY #5 tab 11/25/20 Allergies Allergy/AdvReac Type Severity Reaction Status Date / Time gemfibrozil [From Lopid] Allergy LEG Verified 11/25/20 00:46 CRAMPS,ANXIETY metoclopramide HCl Allergy Rapid Verified 11/25/20 00:46 [From Reglan] Heart Rate Review of Systems ROS Statement: Those systems with pertinent positive or pertinent negative responses have been documented in the HPI. ROS Other: All systems not noted in ROS Statement are negative. Past Medical History Past Medical History: COPD, GERD/Reflux, Hyperlipidemia, Osteoarthritis (OA), Pneumonia Additional Past Medical History / Comment(s): Lower GI bleed, hemorrhoids, constipation, involuntary movements with reglan use, back pain, L shoulder pain d/t injury 2 yrs ago, RLS, migraines. History of Any Multi-Drug Resistant Organisms: None Reported Additional Past Surgical History / Comment(s): COLONOSCOPY,EGD Past Anesthesia/Blood Transfusion Reactions: No Reported Reaction Past Psychological History: Anxiety, Depression Smoking Status: Current every day smoker Past Alcohol Use History: Occasional Past Drug Use History: Cocaine, Marijuana - Past Family History Mother Family Medical History: GERD/Reflux Father Family Medical History: Cancer, Myocardial Infarction ([place]) Additional Family Medical History / Comment(s): Cancer in abdominal area, of a massive [place] at the age of 67yrs. General Exam Limitations: no limitations Course Vital Signs 11/25/20 11/25/20 11/25/20 00:44 01:00 01:02 Temperature 97.6 F Pulse Rate 91 85 Respiratory 20 18 18 Rate Blood Pressure 139/81 136/88 O2 Sat by Pulse 100 100 Oximetry 11/25/20 11/25/20 11/25/20 01:42 01:49 02:00 Temperature Pulse Rate 73 72 65 Respiratory 18 Rate Blood Pressure 129/86 O2 Sat by Pulse 100 Oximetry Medical Decision Making - EKG Data -: EKG Interpreted by Me (EKG is sinus rhythm 78 [place] 152 QRS 74 QTc 419) Disposition Clinical Impression: Asthma with acute exacerbation Disposition: HOME SELF-CARE Condition: Good Instructions (If sedation given, give patient instructions): Asthma (ED) Prescriptions: predniSONE 50 mg PO DAILY #5 tab Albuterol Sulfate [Proair Hfa] 1 - 2 puff INHALATION Q4H PRN #1 inhaler PRN Reason: Shortness Of Breath Azithromycin [Zithromax Z-pack (6 tabs)] 0 mg PO DIRECTED #1 pack Is patient prescribed a controlled substance at d/c from ED?: No Referrals: [facility] [Primary Care Provider] - 1-2 days
[2020-11-25] MEDS ORDERED: SODIUM CHLORIDE 0.9% 500 ML 500 ML IV STA (00:50)
[2020-11-25] MEDS ORDERED: SODIUM CHLORIDE 0.9% 1,000 ML IV STA (00:50)
--- NOTE | 2020-11-25 01:07 | XR ---
EXAM: XR Chest, 1 View CLINICAL HISTORY: ITS.REASON XR Reason: Suspected COVID-19 pneumonia TECHNIQUE: Frontal view of the chest. COMPARISON: 12/26/2017 FINDINGS: Lungs: Unremarkable. No consolidation. Pleural space: Unremarkable. No pneumothorax. Heart: Unremarkable. No cardiomegaly. Mediastinum: Unremarkable. Bones/joints: Unremarkable. IMPRESSION: No acute pulmonary process
[2020-11-25 01:09] VITALS: RESP 18
[2020-11-25] MEDS ORDERED: LORazepam 1 MG TAB PO STA (01:23)
[2020-11-25] MEDS ORDERED: predniSONE 20 MG TAB PO STA (01:23)
[2020-11-25] MEDS ORDERED: AZITHROMYCIN 500 MG TAB PO STA (01:23)
[2020-11-25 02:27] VITALS: BP 129/86; PULSE 65
== END 2020-11-25 02:34 | disposition home or self-care (01) ==
LOC: EC 00:41
DX: J45.901 Unspecified asthma with (acute) exacerbation (principal); E78.5 Hyperlipidemia, unspecified; M19.90 Unspecified osteoarthritis, unspecified site; F17.200 Nicotine dependence, unspecified, uncomplicated; F32.9 Major depressive disorder, single episode, unspecified; F12.90 Cannabis use, unspecified, uncomplicated; F41.9 Anxiety disorder, unspecified; Z79.82 Long term (current) use of aspirin
CPT/HCPCS: 94640; 93005; 71045; 99285; J7512

== ENCOUNTER 2020-12-09 02:55 | Emergency (ER) | payer OTHER ==
[2020-12-09 03:13] VITALS: BP 144/97; TEMP 97.6
[2020-12-09] MEDS ORDERED: ALBUTEROL NEBULIZED 2.5 MG/3 ML INHALATION STA (03:29)
--- NOTE | 2020-12-09 03:32 | ED ---
SOB HPI - General Chief Complaint: Shortness of Breath Stated Complaint: ANAI Time Seen by Provider: 12/09/20 03:17 Source: patient, family Mode of arrival: ambulatory - History of Present Illness Initial Comments: This patient is a 55-year-old man with history of asthma who presents with cough and wheezing. He states that he was seen here approximately 2 weeks ago for the same symptoms. He was prescribed medications but states that he lost the prescriptions before he was able to get them filled. He is hoping to have the prescriptions rewritten and he also feels he needs a breathing treatment. No fever or chills. No purulent sputum. MD Complaint: shortness of breath, cough Onset/Timin -: week(s) Consistency: intermittent Improves With: nothing Worsens With: nothing Known History Of: asthma Associated Symptoms: cough, sputum production Treatments Prior to Arrival: none - Related Data Home Oxygen Therapy: No Home Medications Medication Instructions Recorded Confirmed Acyclovir 400 mg PO TID 12/29/19 12/29/19 Cholecalciferol [Vitamin D3 (25 5,000 unit PO DAILY 12/29/19 12/29/19 Mcg = 1000 Iu)] Loratadine [Claritin] 10 mg PO DAILY 12/29/19 12/29/19 Mirtazapine [Remeron] 15 mg PO HS 12/29/19 12/29/19 Rosuvastatin Calcium [Crestor] 40 mg PO DAILY 12/29/19 12/29/19 buPROPion XL [Wellbutrin XL] 150 mg PO DAILY 12/29/19 12/29/19 busPIRone HCl [Buspar] 10 mg PO BID 12/29/19 12/29/19 rOPINIRole HCL [Requip] 0.5 mg PO HS 12/29/19 12/29/19 Previous Rx's Medication Instructions Recorded Aspirin EC [Ecotrin Low Dose] 81 mg PO DAILY #30 tablet. 09/18/17 Omeprazole [PriLOSEC] 40 mg PO AC-BRKFST #14 capsule. 12/31/19 predniSONE 10 mg PO DAILY #74 tab 12/31/19 Albuterol Sulfate [Proair Hfa] 1 - 2 puff INHALATION Q4H PRN #1 11/25/20 inhaler Azithromycin [Zithromax Z-pack (6 0 mg PO DIRECTED #1 pack 11/25/20 tabs)] predniSONE 50 mg PO DAILY #5 tab 11/25/20 Albuterol Inhaler [Ventolin Hfa 2 puff INHALATION Q4HR PRN #1 12/09/20 Inhaler] inhaler Azithromycin [Zithromax Z-pack (6 250 mg PO DIRECTED #6 tab 12/09/20 tabs)] predniSONE [Deltasone] 20 mg PO BID #8 tab 12/09/20 Allergies Allergy/AdvReac Type Severity Reaction Status Date / Time gemfibrozil [From Lopid] Allergy LEG Verified 12/09/20 03:13 CRAMPS,ANXIETY metoclopramide HCl Allergy Rapid Verified 12/09/20 03:13 [From Reglan] Heart Rate Review of Systems ROS Statement: Those systems with pertinent positive or pertinent negative responses have been documented in the HPI. ROS Other: All systems not noted in ROS Statement are negative. Constitutional: Denies: fever, chills Respiratory: Reports: cough, wheezes Cardiovascular: Denies: chest pain, palpitations, edema, syncope Gastrointestinal: Denies: abdominal pain, vomiting, diarrhea Genitourinary: Denies: dysuria Musculoskeletal: Denies: back pain Skin: Denies: rash Neurological: Denies: headache, weakness, numbness Past Medical History Past Medical History: COPD, GERD/Reflux, Hyperlipidemia, Osteoarthritis (OA), Pneumonia Additional Past Medical History / Comment(s): Lower GI bleed, hemorrhoids, constipation, involuntary movements with reglan use, back pain, L shoulder pain d/t injury 2 yrs ago, RLS, migraines. History of Any Multi-Drug Resistant Organisms: None Reported Additional Past Surgical History / Comment(s): COLONOSCOPY,EGD Past Anesthesia/Blood Transfusion Reactions: No Reported Reaction Past Psychological History: Anxiety, Depression Smoking Status: Current every day smoker Past Alcohol Use History: Occasional Past Drug Use History: Cocaine, Marijuana - Past Family History Mother Family Medical History: GERD/Reflux Father Family Medical History: Cancer, Myocardial Infarction ([place]) Additional Family Medical History / Comment(s): Cancer in abdominal area, of a massive [place] at the age of 67yrs. General Exam General appearance: alert, in no apparent distress Head exam: Present: atraumatic, normocephalic Eye exam: Present: normal appearance. Absent: scleral icterus, conjunctival injection ENT exam: Present: normal oropharynx Neck exam: Present: normal inspection Respiratory exam: Present: wheezes. Absent: respiratory distress, rales, rhonchi, stridor Cardiovascular Exam: Present: regular rate, normal rhythm, normal heart sounds. Absent: systolic murmur, diastolic murmur, rubs, gallop GI/Abdominal exam: Present: soft. Absent: distended, tenderness, guarding, rebound, rigid Back exam: Present: normal inspection Neurological exam: Present: alert Skin exam: Present: warm, dry, intact, normal color. Absent: rash Course Vital Signs 12/09/20 12/09/20 12/09/20 03:09 03:39 03:43 Temperature 97.6 F Pulse Rate 78 78 Respiratory 18 16 Rate Blood Pressure 144/97 O2 Sat by Pulse 99 Oximetry Disposition Clinical Impression: Asthma with acute exacerbation Disposition: HOME SELF-CARE Condition: Good Instructions (If sedation given, give patient instructions): Asthma (ED) Prescriptions: predniSONE [Deltasone] 20 mg PO BID #8 tab Albuterol Inhaler [Ventolin Hfa Inhaler] 2 puff INHALATION Q4HR PRN #1 inhaler PRN Reason: Wheezing Azithromycin [Zithromax Z-pack (6 tabs)] 250 mg PO DIRECTED #6 tab Is patient prescribed a controlled substance at d/c from ED?: No Referrals: [facility] [Primary Care Provider] - 1-2 days
[2020-12-09 03:42] VITALS: RESP 16
[2020-12-09 04:05] VITALS: PULSE 91
== END 2020-12-09 04:04 | disposition home or self-care (01) ==
LOC: EC 02:55
DX: J45.901 Unspecified asthma with (acute) exacerbation (principal); K21.9 Gastro-esophageal reflux disease without esophagitis; J44.9 Chronic obstructive pulmonary disease, unspecified; M19.90 Unspecified osteoarthritis, unspecified site; E78.5 Hyperlipidemia, unspecified; F32.9 Major depressive disorder, single episode, unspecified; F17.200 Nicotine dependence, unspecified, uncomplicated; F12.90 Cannabis use, unspecified, uncomplicated; F14.90 Cocaine use, unspecified, uncomplicated; Z87.19 Personal history of other diseases of the digestive system; Z79.52 Long term (current) use of systemic steroids; Z79.82 Long term (current) use of aspirin; Z79.899 Other long term (current) drug therapy
CPT/HCPCS: 94640; 99284

== ENCOUNTER 2020-12-19 21:41 | Inpatient (IN) | payer MEDICAID, OTHER ==
--- NOTE | 2020-12-19 22:11 | ED ---
General Adult HPI - General Source: patient, RN notes reviewed, old records reviewed Mode of arrival: ambulatory Limitations: no limitations <Eddie Chaney - Last Filed: 12/19/20 22:10> <Kirill Cooney - Last Filed: 12/20/20 03:38> - General Chief complaint: Psychiatric Symptoms Stated complaint: mental health Time Seen by Provider: 12/19/20 22:03 - History of Present Illness Initial comments: 55-year-old male presenting for mental health evaluation. Patient requesting evaluation of auditory hallucination, and suicidal ideation. He denies a suicide attempt. He does admit to alcohol use. He states he's had previous admission for mental health evaluation and treatment. He denies physical co mplaints. He is also requesting medication adjustment for his symptoms. (Eddie Chaney) - Related Data Home Medications Medication Instructions Recorded Confirmed Cholecalciferol [Vitamin D3 (25 5,000 unit PO DAILY 12/29/19 12/19/20 Mcg = 1000 Iu)] Loratadine [Claritin] 10 mg PO DAILY 12/29/19 12/19/20 Mirtazapine [Remeron] 15 mg PO HS 12/29/19 12/19/20 Rosuvastatin Calcium [Crestor] 40 mg PO DAILY 12/29/19 12/19/20 buPROPion XL [Wellbutrin XL] 150 mg PO DAILY 12/29/19 12/19/20 busPIRone HCl [Buspar] 10 mg PO BID 12/29/19 12/19/20 rOPINIRole HCL [Requip] 0.5 mg PO HS 12/29/19 12/19/20 Albuterol Inhaler [Ventolin Hfa 2 puff INHALATION RT-Q4H PRN 12/19/20 12/19/20 Inhaler] Famotidine 20 mg PO DAILY 12/19/20 12/19/20 Previous Rx's Medication Instructions Recorded Aspirin EC [Ecotrin Low Dose] 81 mg PO DAILY #30 tablet. 09/18/17 Allergies Allergy/AdvReac Type Severity Reaction Status Date / Time gemfibrozil [From Lopid] Allergy LEG Verified 12/19/20 23:30 CRAMPS,ANXIETY metoclopramide HCl Allergy Rapid Verified 12/19/20 23:30 [From Reglan] Heart Rate Review of Systems ROS Other: All systems not noted in ROS Statement are negative. <Eddie Chaney - Last Filed: 12/19/20 22:10> ROS Other: All systems not noted in ROS Statement are negative. <EstrellaKirill pandey Hermes - Last Filed: 12/20/20 03:38> ROS Statement: Those systems with pertinent positive or pertinent negative responses have been documented in the HPI. Past Medical History Past Medical History: COPD, GERD/Reflux, Hyperlipidemia, Osteoarthritis (OA), Pneumonia Additional Past Medical History / Comment(s): Lower GI bleed, hemorrhoids, constipation, involuntary movements with reglan use, back pain, L shoulder pain d/t injury 2 yrs ago, RLS, migraines. History of Any Multi-Drug Resistant Organisms: None Reported Additional Past Surgical History / Comment(s): COLONOSCOPY,EGD Past Anesthesia/Blood Transfusion Reactions: No Reported Reaction Past Psychological History: Anxiety, Depression Smoking Status: Current every day smoker Past Alcohol Use History: Occasional Past Drug Use History: Cocaine, Marijuana - Past Family History Mother Family Medical History: GERD/Reflux Father Family Medical History: Cancer, Myocardial Infarction ([place]) Additional Family Medical History / Comment(s): Cancer in abdominal area, of a massive [place] at the age of 67yrs. <Eddie Chaney - Last Filed: 12/19/20 22:10> General Exam Limitations: no limitations General appearance: alert, in no apparent distress Head exam: Present: atraumatic, normocephalic Eye exam: Present: normal appearance, PERRL ENT exam: Present: normal exam Neck exam: Present: normal inspection. Absent: tenderness, meningismus Respiratory exam: Present: normal lung sounds bilaterally. Absent: respiratory distress, wheezes Cardiovascular Exam: Present: normal rhythm, tachycardia GI/Abdominal exam: Present: soft. Absent: distended, tenderness, guarding Extremities exam: Present: normal inspection, normal capillary refill. Absent: pedal edema, calf tenderness Neurological exam: Present: alert, oriented X3, CN II-XII intact. Absent: motor sensory deficit Psychiatric exam: Present: suicidal ideation, other (Auditory hallucination) Skin exam: Present: warm, dry, intact <Eddie Chaney - Last Filed: 12/19/20 22:10> Course <Eddie Chaney - Last Filed: 12/19/20 22:10> Vital Signs 12/19/20 21:44 Temperature 97.6 F Pulse Rate 107 H Respiratory 18 Rate Blood Pressure 151/99 O2 Sat by Pulse 99 Oximetry - Reevaluation(s) Reevaluation #1: 12/19/20 22:10 Patient medically cleared for EPS evaluation. (Eddie Chaney) Medical Decision Making <Kirill Cooney - Last Filed: 12/20/20 03:38> - Medical Decision Making 55 male was made medically clear for psychiatric evaluation will be admitted for psychiatric evaluation and treatment (Kirill Cooney) - Lab Data Lab Results 12/19/20 12/20/20 Range/Units 22:08 01:53 Urine Opiates Screen Not Detected (NotDetected) Ur Oxycodone Screen Not Detected (NotDetected) Urine Methadone Screen Not Detected (NotDetected) Ur Propoxyphene Screen Not Detected (NotDetected) Ur Barbiturates Screen Not Detected (NotDetected) U Tricyclic Antidepress Not Detected (NotDetected) Ur Phencyclidine Scrn Not Detected (NotDetected) Ur Amphetamines Screen Detected H (NotDetected) U Methamphetamines Scrn Detected H (NotDetected) U Benzodiazepines Scrn Not Detected (NotDetected) Urine Cocaine Screen Detected H (NotDetected) U Marijuana (THC) Screen Detected H (NotDetected) Coronavirus (PCR) Not Detected (Not Detectd) Disposition <Eddie Chaney - Last Filed: 12/19/20 22:10> Is patient prescribed a controlled substance at d/c from ED?: No <Kirill Cooney - Last Filed: 12/20/20 03:38> Clinical Impression: Weakness, Depression, Suicidal ideation Disposition: TRANSFER TO PSYCH HOSP/UNIT Condition: Fair Referrals: [facility] [Primary Care Provider] - 1-2 days
[2020-12-19 22:30] LABS: Amphetamine Screen,Urine Detected (NotDetected); Barbiturate Screen,Urine Not Detected (NotDetected); Benzodiazepines Screen,Urine Not Detected (NotDetected); Cocaine Screen,Urine Detected (NotDetected); Methadone Screen, Urine Not Detected (NotDetected); Opiate Screen,Urine Not Detected (NotDetected); Oxycodone Screen, Urine Not Detected (NotDetected); Phencyclidine Screen,Urine Not Detected (NotDetected); Tricyclic Antidepressant,Urine Not Detected (NotDetected); Urn Cannabinoid Scrn Detected (NotDetected)
[2020-12-20] MEDS ORDERED: LORazepam 1 MG TAB PO STA (00:23)
[2020-12-20] MEDS ORDERED: NICOTINE 21MG/24HR PATCH TRANSDERM STA (00:23)
[2020-12-20] MEDS ORDERED: MAGNESIUM HYDROXIDE 2,400 MG/10 ML CUP PO PRN (04:18)
[2020-12-20] MEDS ORDERED: ACETAMINOPHEN TAB 325 MG TAB PO PRN (04:18)
[2020-12-20] MEDS ORDERED: MAG HYDROX/AL HYDROX/SIMETH 30 ML CUP PO PRN (04:18)
[2020-12-20] MEDS ORDERED: haloperidoL 5 MG TAB PO PRN (04:23)
[2020-12-20] MEDS ORDERED: HALOPERIDOL LACTATE 5 MG/ML 1 ML VIAL IM PRN (04:24)
[2020-12-20] MEDS ORDERED: LORazepam 2 MG/ML INJ IM PRN (04:25)
[2020-12-20] MEDS: chlordiazePOXIDE 25 MG CAP PO SCH ×2 (08:18→21:28)
[2020-12-20] MEDS: NICOTINE 14MG/24HR PATCH TRANSDERM SCH (08:18)
[2020-12-20 10:30] LABS: Basophils % (A) 0 %; Eosinophils % (A) 0 %; HCT 43.4 % (39.0-53.0); HGB 14.3 gm/dL (13.0-17.5); Lymphocytes # (A) 1.6 k/uL (1.0-4.8); Lymphocytes % (A) 16 %; MCH 29.6 pg (25.0-35.0); MCV 89.8 fL (80.0-100.0); Mean Platelet Volume 8.1; Monocytes # (A) 0.6 k/uL (0-1.0); Monocytes % (A) 7 %; Neutrophils # (A) 7.4 k/uL (1.3-7.7); Neutrophils % (A) 76 %; Platelet Count 288 k/uL (150-450); RBC 4.83 m/uL (4.30-5.90); RDW 12.7 % (11.5-15.5); WBC 9.8 k/uL (3.8-10.6)
[2020-12-20 10:50] LABS: ALT 15 U/L (4-49); AST 28 U/L (17-59); African American GFR (CKD) >90 (>60 ml/min/1.73 sqM); Albumin 4.5 g/dL (3.5-5.0); Alkaline Phosphatase 83 U/L (38-126); Anion Gap 8 mmol/L; Bilirubin,Unconjugated 2.4 mg/dL (0.0-1.1); Blood Urea Nitrogen 13 mg/dL (9-20); Calcium 9.9 mg/dL (8.4-10.2); Carbon Dioxide 27 mmol/L (22-30); Chloride 105 mmol/L (98-107); Glucose 102 mg/dL (74-99); Non-African American GFR(CKD) >90 (>60 ml/min/1.73 sqM); Potassium 4.5 mmol/L (3.5-5.1); Sodium 140 mmol/L (137-145); Total Bilirubin 2.4 mg/dL (0.2-1.3); Total Protein 7.8 g/dL (6.3-8.2)
[2020-12-20] MEDS: LORazepam 1 MG TAB PO PRN ×2 (11:29→18:32)
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
[2020-12-20 20:24] LABS: Hemoglobin A1C 5.2 % (4.0-6.0)
[2020-12-20] MEDS: MIRTAZAPINE 15 MG TAB PO SCH (21:28)
[2020-12-20] MEDS: risperiDONE 1 MG TAB PO SCH (21:29)
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
[2020-12-21] MEDS: chlordiazePOXIDE 25 MG CAP PO SCH (08:38)
[2020-12-21] MEDS: risperiDONE 1 MG TAB PO SCH ×2 (08:38→21:31)
[2020-12-21] MEDS: NICOTINE 14MG/24HR PATCH TRANSDERM SCH (08:38)
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
[2020-12-21 12:55] VITALS: BMI 19.9
[2020-12-21 17:10] LABS: Hepatitis B Surface Antigen Non-Reactive (Non-Reactive); Hepatitis C IgG Antibody Non-Reactive (Non-Reactive)
[2020-12-21] MEDS: MIRTAZAPINE 15 MG TAB PO SCH (21:31)
[2020-12-21] MEDS: LORazepam 1 MG TAB PO PRN (21:33)
[2020-12-22 06:54] VITALS: BP 98/60; PULSE 77; RESP 16; TEMP 98.3
[2020-12-22] MEDS ORDERED: chlordiazePOXIDE 25 MG CAP PO SCH (09:00)
[2020-12-22] MEDS: risperiDONE 1 MG TAB PO SCH (09:12)
[2020-12-22] MEDS: NICOTINE 14MG/24HR PATCH TRANSDERM SCH (09:13)
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
[2020-12-22 17:46] LABS: HIV 2 AB Non-Reactive (Non-Reactive); HIV AB P24 Non-Reactive (Non-Reactive); HIV P24 AG Non-Reactive (Non-Reactive)
== END 2020-12-22 13:48 | disposition home or self-care (01) | DRG 885 ==
LOC: EC 21:41 → 3MHU 12-20 04:06
PROVIDERS: ADMIT Psychiatry & Neurology Psychiatry; ATTEND Psychiatry & Neurology Psychiatry
DX: F23 Brief psychotic disorder (principal); R45.851 Suicidal ideations; E78.5 Hyperlipidemia, unspecified; E80.4 Gilbert syndrome; F10.10 Alcohol abuse, uncomplicated; F12.10 Cannabis abuse, uncomplicated; F14.10 Cocaine abuse, uncomplicated; F15.10 Other stimulant abuse, uncomplicated; F17.200 Nicotine dependence, unspecified, uncomplicated; F32.9 Major depressive disorder, single episode, unspecified; F41.9 Anxiety disorder, unspecified; F90.9 Attention-deficit hyperactivity disorder, unspecified type; G25.81 Restless legs syndrome; G47.00 Insomnia, unspecified; J44.9 Chronic obstructive pulmonary disease, unspecified; Z79.82 Long term (current) use of aspirin; Z79.899 Other long term (current) drug therapy; Z82.49 Family history of ischemic heart disease and other diseases of the circulatory system; Z91.5 Personal history of self-harm; Z20.822 Contact with and (suspected) exposure to COVID-19
CPT/HCPCS: 80053; 80306; 82075; 82248; 83036; 84443; 85025; 86803; 87340; 87390; 87522; 87635; 99285

== ENCOUNTER 2023-08-09 10:58 | Emergency (ER) | payer SELFPAY ==
[2023-08-09 11:19] VITALS: RESP 16; TEMP 98.2
[2023-08-09] MEDS ORDERED: SODIUM CHLORIDE 0.9% 1,000 ML IV STA (11:21)
[2023-08-09] MEDS ORDERED: HYDROmorphone 0.5 MG/0.5 ML SYRINGE IVP STA (11:28)
[2023-08-09] MEDS ORDERED: ONDANSETRON 4 MG/2 ML VIAL IVP STA (11:28)
--- NOTE | 2023-08-09 11:31 | ED ---
Abdominal Pain HPI - General Chief Complaint: Abdominal Pain Stated Complaint: Stomach Pain Time Seen by Provider: 08/09/23 11:12 Source: patient, RN notes reviewed Mode of arrival: ambulatory Limitations: no limitations - History of Present Illness Initial Comments: Patient is a 57-year-old male presented to ER with a chief complaint of generalized abdominal pain. Patient has a past medical history significant for Crohn's disease. Patient states for the past month he has been having increasing in pain and diarrhea. He also reports his stools have been very dark. Patient admits to nausea and a few episode of emesis. Patient denies any abdominal surgeries. Patient also is reporting chills yesterday. Patient does describe that he feels bloated. Patient denies any chest pain, shortness of breath, fevers, dysuria or urinary complaints, peripheral edema. - Related Data Home Medications Medication Instructions Recorded Confirmed No Known Home Medications 08/09/23 08/09/23 Allergies Allergy/AdvReac Type Severity Reaction Status Date / Time gemfibrozil [From Lopid] Allergy LEG Verified 08/09/23 11:54 CRAMPS,ANXIETY metoclopramide HCl Allergy Rapid Verified 08/09/23 11:54 [From Reglan] Heart Rate Review of Systems ROS Statement: Those systems with pertinent positive or pertinent negative responses have been documented in the HPI. ROS Other: All systems not noted in ROS Statement are negative. Past Medical History Past Medical History: COPD, GERD/Reflux, Hyperlipidemia, Osteoarthritis (OA), Pneumonia Additional Past Medical History / Comment(s): Lower GI bleed, hemorrhoids, constipation, involuntary movements with reglan use, back pain, L shoulder pain d/t injury 2 yrs ago, RLS, migraines. History of Any Multi-Drug Resistant Organisms: None Reported Additional Past Surgical History / Comment(s): COLONOSCOPY,EGD Past Anesthesia/Blood Transfusion Reactions: No Reported Reaction Past Psychological History: Anxiety, Depression Smoking Status: Current every day smoker - Past Family History Mother Family Medical History: GERD/Reflux Father Family Medical History: Cancer, Myocardial Infarction ([place]) Additional Family Medical History / Comment(s): Cancer in abdominal area, of a massive [place] at the age of 67yrs. General Exam Limitations: no limitations General appearance: alert, in no apparent distress Eye exam: Present: normal appearance, PERRL, EOMI. Absent: scleral icterus, conjunctival injection, periorbital swelling Respiratory exam: Present: normal lung sounds bilaterally. Absent: respiratory distress, wheezes, rales, rhonchi, stridor Cardiovascular Exam: Present: regular rate, normal rhythm, normal heart sounds. Absent: systolic murmur, diastolic murmur, rubs, gallop, clicks GI/Abdominal exam: Present: soft, normal bowel sounds. Absent: distended, tenderness, guarding, rebound, rigid Neurological exam: Present: alert, oriented X3, CN II-XII intact Psychiatric exam: Present: normal affect, normal mood Skin exam: Present: warm, dry, intact, normal color. Absent: rash Course Vital Signs 08/09/23 08/09/23 11:05 14:24 Temperature 98.2 F Pulse Rate 77 56 L Respiratory 16 16 Rate Blood Pressure 113/71 O2 Sat by Pulse 98 100 Oximetry Medical Decision Making - Medical Decision Making Was pt. sent in by a medical professional or institution (, PA, INTERNET MARKETER, urgent care, hospital, or fdc...) When possible be specific @ -No Did you speak to anyone other than the patient for history (EMS, parent, family, police, friend...)? What history was obtained from this source @ -No Did you review nursing and triage notes (agree or disagree)? Why? @ -I reviewed and agree with nursing and triage notes Were old charts reviewed (outside hosp., previous admission, EMS record, old EKG, old radiological studies, urgent care reports/EKG's, fdc records)? Report findings @ -No old charts were reviewed Differential Diagnosis (chest pain, altered mental status, abdominal pain women, abdominal pain men, vaginal bleeding, weakness, fever, dyspnea, syncope, headache, dizziness, GI bleed, back pain, seizure, CVA, palpatations, mental health, musculoskeletal)? @ -Differential Abdominal Pain Men: Appendicitis, cholecystitis, diverticulosis, ischemic bowel, pancreatitis, hepatitis, UTI, gastroenteritis, AAA, incarcerated hernia, bowel obstruction, constipation, inflammatory bowel, hepatitis, peptic ulcer disease, splenic infarction, perforated viscus, testicular torsion, this is not meant to be an all-inclusive list EKG interpreted by me (3pts min.). @ -As above X-rays interpreted by me (1pt min.). @ -None done CT interpreted by me (1pt min.). @ -CT abdomen pelvis shows findings consistent with ileitis. U/S interpreted by me (1pt. min.). @ -None done What testing was considered but not performed or refused? (CT, X-rays, U/S, labs)? Why? @ -None What meds were considered but not given or refused? Why? @ -None Did you discuss the management of the patient with other professionals (professionals i.e. DrFrancisco, PA, INTERNET MARKETER, lab, RT, psych nurse, social human services assistants, movement assembly final inspector, teacher, medical information officer, case mgr)? Give summary @ -No Was smoking cessation discussed for >3mins.? @ -No Was critical care preformed (if so, how long)? @ -No Were there social determinants of health that impacted care today? How? (Homelessness, low income, unemployed, alcoholism, drug addiction, transportation, low edu. Level, literacy, decrease access to med. care, senior living, rehab)? @ -No Was there de-escalation of care discussed even if they declined (Discuss DNR or withdrawal of care, Hospice)? DNR status @ -No What co-morbidities impacted this encounter? (DM, HTN, Smoking, COPD, CAD, Cancer, CVA, ARF, Chemo, Hep., AIDS, mental health diagnosis, sleep apnea, morbid obesity)? @ -Crohn's disease Was patient admitted / discharged? Hospital course, mention meds given and route , prescriptions, significant lab abnormalities, going to OR and other pertinent info. @ -Discharge. Patient is a 57-year-old male presented to the ER with chief complaint of diarrhea. Vitals stable. History and physical exam were completed. Patient was mildly tender to abdomen. Patient was in no signs of acute distress. Patient received IV fluids and pain medication in the ER. Labs obtained in the ER were unremarkable. Urinalysis unremarkable. CT showed findings consistent of ileitis. EKG showed no signs of acute infarct or ischemia. Patient was able to eat a turkey sandwich. Advised patient to follow-up with GI specialist. Referral was given. Return parameters were discussed. Patient be discharged stable condition with follow-up to PCP/GI. Patient expressed understanding and agreement with care plan. Undiagnosed new problem with uncertain prognosis? @ -No Drug Therapy requiring intensive monitoring for toxicity (Heparin, Nitro, Insulin, Cardizem)? @ -No Were any procedures done? @ -No Diagnosis/symptom? @ -Ileitis Acute, or Chronic, or Acute on Chronic? @ -Acute Uncomplicated (without systemic symptoms) or Complicated (systemic symptoms)? @ -Uncomplicated Side effects of treatment? @ -No Exacerbation, Progression, or Severe Exacerbation? @ -No Poses a threat to life or bodily function? How? (Chest pain, [place], [place], pneumonia, PE, COPD, DKA, ARF, appy, cholecystitis, CVA, Diverticulitis, Homicidal, Suicidal, threat to staff... and all critical care pts) @ -No - Lab Data Result diagrams: 08/09/23 11:33 08/09/23 11:33 Lab Results 08/09/23 08/09/23 08/09/23 Range/Units 11:33 11:33 11:33 WBC 7.6 (3.8-10.6) k/uL RBC 4.74 (4.30-5.90) m/uL Hgb 13.1 (13.0-17.5) gm/dL Hct 40.2 (39.0-53.0) % MCV 84.8 (80.0-100.0) fL MCH 27.6 (25.0-35.0) pg MCHC 32.6 (31.0-37.0) g/dL RDW 13.6 (11.5-15.5) % Plt Count 293 (150-450) k/uL MPV 8.8 Neutrophils % 64 % Lymphocytes % 27 % Monocytes % 6 % Eosinophils % 1 % Basophils % 0 % Neutrophils # 4.9 (1.3-7.7) k/uL Lymphocytes # 2.1 (1.0-4.8) k/uL Monocytes # 0.5 (0-1.0) k/uL Eosinophils # 0.0 (0-0.7) k/uL Basophils # 0.0 (0-0.2) k/uL PT (10.0-12.5) sec INR (<1.2) APTT (22.0-30.0) sec Sodium 138 (137-145) mmol/L Potassium 3.6 (3.5-5.1) mmol/L Chloride 108 H (98-107) mmol/L Carbon Dioxide 25 (22-30) mmol/L Anion Gap 5 mmol/L BUN 7 L (9-20) mg/dL Creatinine 0.86 (0.66-1.25) mg/dL Est GFR (CKD-EPI)AfAm >90 (>60 ml/min/1.73 sqM) Est GFR (CKD-EPI)NonAf >90 (>60 ml/min/1.73 sqM) Glucose 114 H (74-99) mg/dL Plasma Lactic Acid Jorge L (0.7-2.0) mmol/L Calcium 9.1 (8.4-10.2) mg/dL Total Bilirubin 0.8 (0.2-1.3) mg/dL AST 16 L (17-59) U/L ALT 11 (4-49) U/L Alkaline Phosphatase 82 (38-126) U/L Total Protein 7.5 (6.3-8.2) g/dL Albumin 3.8 (3.5-5.0) g/dL Amylase 82 (30-110) U/L Lipase 72 (23-300) U/L Urine Color Colorless Urine Appearance Clear (Clear) Urine pH 5.5 (5.0-8.0) Ur Specific [place] 1.004 (1.001-1.035) Urine Protein Negative (Negative) Urine Glucose (UA) Negative (Negative) Urine Ketones Negative (Negative) Urine Blood Negative (Negative) Urine Nitrite Negative (Negative) Urine Bilirubin Negative (Negative) Urine Urobilinogen <2.0 (<2.0) mg/dL Ur Leukocyte Esterase Negative (Negative) 08/09/23 08/09/23 Range/Units 11:33 11:33 WBC (3.8-10.6) k/uL RBC (4.30-5.90) m/uL Hgb (13.0-17.5) gm/dL Hct (39.0-53.0) % MCV (80.0-100.0) fL MCH (25.0-35.0) pg MCHC (31.0-37.0) g/dL RDW (11.5-15.5) % Plt Count (150-450) k/uL MPV Neutrophils % % Lymphocytes % % Monocytes % % Eosinophils % % Basophils % % Neutrophils # (1.3-7.7) k/uL Lymphocytes # (1.0-4.8) k/uL Monocytes # (0-1.0) k/uL Eosinophils # (0-0.7) k/uL Basophils # (0-0.2) k/uL PT 10.2 (10.0-12.5) sec INR 0.9 (<1.2) APTT 29.7 (22.0-30.0) sec Sodium (137-145) mmol/L Potassium (3.5-5.1) mmol/L Chloride (98-107) mmol/L Carbon Dioxide (22-30) mmol/L Anion Gap mmol/L BUN (9-20) mg/dL Creatinine (0.66-1.25) mg/dL Est GFR (CKD-EPI)AfAm (>60 ml/min/1.73 sqM) Est GFR (CKD-EPI)NonAf (>60 ml/min/1.73 sqM) Glucose (74-99) mg/dL Plasma Lactic Acid Jorge L 1.6 (0.7-2.0) mmol/L Calcium (8.4-10.2) mg/dL Total Bilirubin (0.2-1.3) mg/dL AST (17-59) U/L ALT (4-49) U/L Alkaline Phosphatase (38-126) U/L Total Protein (6.3-8.2) g/dL Albumin (3.5-5.0) g/dL Amylase (30-110) U/L Lipase (23-300) U/L Urine Color Urine Appearance (Clear) Urine pH (5.0-8.0) Ur Specific [place] (1.001-1.035) Urine Protein (Negative) Urine Glucose (UA) (Negative) Urine Ketones (Negative) Urine Blood (Negative) Urine Nitrite (Negative) Urine Bilirubin (Negative) Urine Urobilinogen (<2.0) mg/dL Ur Leukocyte Esterase (Negative) - EKG Data -: EKG Interpreted by Me EKG Comments: EKG taken at 11: 38 shows sinus bradycardia with no acute ST segment or T wave abnormalities. Ventricular rate 58, ID interval 167, QRS duration 89, QT/QTc 380/378. - Radiology Data Radiology results: report reviewed, image reviewed Disposition Clinical Impression: Ileitis Disposition: HOME SELF-CARE Condition: Stable Additional Instructions: Please follow-up with GI/[facility]. Return to ER for any new or worsening symptoms. Is patient prescribed a controlled substance at d/c from ED?: No Referrals: None,Stated [Primary Care Provider] - 1-2 days Marlyn Campos MD [STAFF PHYSICIAN] - 1-2 days Time of Disposition: 14:06
[2023-08-09 11:45] LABS: Basophils % (A) 0 %; Eosinophils % (A) 1 %; HCT 40.2 % (39.0-53.0); HGB 13.1 gm/dL (13.0-17.5); Lymphocytes # (A) 2.1 k/uL (1.0-4.8); Lymphocytes % (A) 27 %; MCH 27.6 pg (25.0-35.0); MCHC 32.6 g/dL (31.0-37.0); MCV 84.8 fL (80.0-100.0); Mean Platelet Volume 8.8; Monocytes # (A) 0.5 k/uL (0-1.0); Monocytes % (A) 6 %; Neutrophils # (A) 4.9 k/uL (1.3-7.7); Neutrophils % (A) 64 %; Platelet Count 293 k/uL (150-450); RBC 4.74 m/uL (4.30-5.90); RDW 13.6 % (11.5-15.5); WBC 7.6 k/uL (3.8-10.6)
[2023-08-09 11:53] LABS: INR 0.9 (<1.2); Partial Thromboplastin Time 29.7 sec (22.0-30.0); Prothrombin Time 10.2 sec (10.0-12.5)
[2023-08-09 11:55] LABS: ALT 11 U/L (4-49); AST 16 U/L (17-59); African American GFR (CKD) >90 (>60 ml/min/1.73 sqM); Albumin 3.8 g/dL (3.5-5.0); Alkaline Phosphatase 82 U/L (38-126); Amylase 82 U/L (30-110); Anion Gap 5 mmol/L; Blood Urea Nitrogen 7 mg/dL (9-20); Calcium 9.1 mg/dL (8.4-10.2); Carbon Dioxide 25 mmol/L (22-30); Chloride 108 mmol/L (98-107); Glucose 114 mg/dL (74-99); Lipase 72 U/L (23-300); Non-African American GFR(CKD) >90 (>60 ml/min/1.73 sqM); Potassium 3.6 mmol/L (3.5-5.1); Sodium 138 mmol/L (137-145); Total Bilirubin 0.8 mg/dL (0.2-1.3); Total Protein 7.5 g/dL (6.3-8.2)
[2023-08-09 12:02] LABS: Appearance,Urine Clear (Clear); Bilirubin,Urine Negative (Negative); Blood,Urine Negative (Negative); Color,Urine Colorless; Glucose,Urine (UA) Negative (Negative); Ketones,Urine Negative (Negative); Leukocyte Esterase,Urine Negative (Negative); Nitrite,Urine Negative (Negative); PH, Urine 5.5 (5.0-8.0); Protein,Urine Negative (Negative); Specific Gravity,Urine 1.004 (1.001-1.035); Urobilinogen,Urine <2.0 mg/dL (<2.0)
--- NOTE | 2023-08-09 13:01 | CT ---
EXAMINATION TYPE: CT abdomen pelvis w con DATE OF EXAM: 08/09/2023 COMPARISON: INDICATION: pain DLP: 578.8 mGycm, Automated exposure control for dose reduction was used. CONTRAST: 100 mL of Isovue 300. Study performed without Oral Contrast TECHNIQUE: Axial images were obtained from above the diaphragm to the pubic rami in the axial plane a t 5 mm thick sections. Reconstructed images are reviewed on the computer in the coronal plane. FINDINGS: Limited CT sections are obtained the lung bases. There is a small pleural calcification posterior me dial right lung base. Series [address] ABDOMEN: Liver: Hemangioma may be within the lateral right liver measuring 1.3 cm. Spleen: Normal Pancreas: Normal Adrenal glands: The adrenal glands are normal. Gallbladder: Normal Kidneys: No masses are evident. No hydronephrosis is present. No cysts are present. Delayed images were obtained through the kidneys, which remain unremarkable. Aorta: Vascular calcification is within the aorta. Inferior vena cava: Normal. CT PELVIS: There are fluid-filled small loops of bowel within the lower pelvis. Some mild small bowel wall thick ening may be within the ileum . The study is without oral contrast limiting bowel evaluation. Appendix: Normal as visualized. Urinary bladder: Normal. Genitourinary structures: Prostate appears normal Osseous structures: No suspicious lytic or sclerotic lesions. IMPRESSION: 1. Mild fluid-filled ileum may have some minimal wall thickening. Correlate for mild ileitis. Follow -up can be performed as clinically indicated.
[2023-08-09 14:44] VITALS: BP 113/71; PULSE 56
== END 2023-08-09 14:25 | disposition home or self-care (01) ==
LOC: EC 10:58
DX: K52.9 Noninfective gastroenteritis and colitis, unspecified (principal); J44.9 Chronic obstructive pulmonary disease, unspecified; F17.200 Nicotine dependence, unspecified, uncomplicated; Z88.8 Allergy status to other drugs, medicaments and biological substances; Z86.59 Personal history of other mental and behavioral disorders
CPT/HCPCS: 36415; 93005; 80053; 82150; 83605; 83690; 85025; 85610; 85730; 81003; 74177; 99284; 96374; 96375; 96361 ×2; J2405; J1170; Q9967

== ENCOUNTER 2023-08-30 21:40 | Inpatient (IN) | payer BC, OTHER ==
--- NOTE | 2023-08-30 21:58 | ED ---
GI Bleed HPI - General Source: patient, RN notes reviewed <Miracle Hagan - Last Filed: 08/30/23 21:57> - General Source: patient, RN notes reviewed, old records reviewed <Carlos Jones - Last Filed: 08/31/23 06:56> - General Stated complaint: Blood in stool Time Seen by Provider: 08/30/23 21:57 - History of Present Illness Initial comments: Patient is a 57-year-old male presented to the ER with chief complaint of bright red blood per rectum. Patient has a history of Crohn's disease and follows up with Dr. Campos. Patient states prior to arrival he had an episode of bright red red blood in the toilet. Denies any hemorrhoids or anal fissures. Denies any chest pain, shortness of breath, dizziness, lightheadedness or blood thinner use. (Miracle Hagan) I evaluated the patient after he was placed in room. Briefly, patient presents with lower abdominal pain, in the setting of Crohn's disease and rectal bleeding. Rectal bleeding occurred yesterday. 1 episode or 2 episodes of bright red blood. Does have a history of hemorrhoids. Denies any diarrhea. Denies any hematemesis or vomiting. Has no other acute complaints. Follows up with Dr. Campos. Workup started as a quick note. I evaluated the patient when he was placed in a room.Patient is not on blood thinners. (Carlos Jones) - Related Data Home Medications Medication Instructions Recorded Confirmed No Known Home Medications 08/09/23 08/09/23 Allergies Allergy/AdvReac Type Severity Reaction Status Date / Time gemfibrozil [From Lopid] Allergy LEG Verified 08/30/23 22:46 CRAMPS,ANXIETY metoclopramide HCl Allergy Rapid Verified 08/30/23 22:46 [From Reglan] Heart Rate Review of Systems ROS Other: All systems not noted in ROS Statement are negative. <Miracle Hagan - Last Filed: 08/30/23 21:57> ROS Other: All systems not noted in ROS Statement are negative. <Carlos Jones - Last Filed: 08/31/23 06:56> ROS Statement: Those systems with pertinent positive or pertinent negative responses have been documented in the HPI. Review of Systems: CONST: Denies fever EYES: Denies blurry vision ENT: Denies nasal congestion C/V: Denies Chest pain RESP: Denies shortness of breath GI: Endorses abdominal pain : Denies dysuria SKIN: Denies rash. MSK: Denies joint pain. NEURO: Denies headache (Carlos Jones) Past Medical History Past Medical History: COPD, GERD/Reflux, Hyperlipidemia, Osteoarthritis (OA), Pneumonia Additional Past Medical History / Comment(s): Lower GI bleed, hemorrhoids, cons tipation, involuntary movements with reglan use, back pain, L shoulder pain d/t injury 2 yrs ago, RLS, migraines. History of Any Multi-Drug Resistant Organisms: None Reported Additional Past Surgical History / Comment(s): COLONOSCOPY,EGD Past Anesthesia/Blood Transfusion Reactions: No Reported Reaction Past Psychological History: Anxiety, Depression Smoking Status: Current every day smoker - Past Family History Mother Family Medical History: GERD/Reflux Father Family Medical History: Cancer, Myocardial Infarction ([place]) Additional Family Medical History / Comment(s): Cancer in abdominal area, of a massive [place] at the age of 67yrs. <Miracle Hagan - Last Filed: 08/30/23 21:57> General Exam <Miracle Hagan - Last Filed: 08/30/23 21:57> <Carlos Jones - Last Filed: 08/31/23 06:56> - General Exam Comments Initial Comments: Visual Physical Exam Vital signs reviewed General: Well-appearing, nontoxic, no acute distress. Head: Normocephalic, atraumatic Eyes: PERRLA, EOMI ENT: Airway patent Chest: Nonlabored breathing Skin: No visual rash, normal skin tone Neuro: Alert and oriented 3 Musculoskeletal: No gross abnormalities (Miracle Hagan) General: Appears in mild distress. HEAD: Normal with no signs of head trauma. EYES: PERRLA, EOMI, conjunctiva normal, no discharge. ENT: Hearing grossly intact, normal oropharynx. RESPIRATORY: Clear breath sounds bilaterally. No wheezes, rales, or rhonchi. C/V: Regular rate and rhythm. S1 and S2 auscultated, no edema, peripheral pulses 2+ and intact throughout ABD: Abdomen is soft, nondistended. Tender to palpation bilateral lower quadrants. No guarding. No rebound tenderness. No peritoneal signs. Rectal exam performed and revealed a uncomplicated external hemorrhoid. No gross blood on exam. Occult will be sent. EXT: Normal range of motion, no obvious deformity SKIN: No rashes or lesions observed on exposed skin. NEURO: Alert and oriented x 4. (Carlos Jones) Course Vital Signs 08/30/23 08/31/23 22:44 06:15 Temperature 98.2 F 97.7 F Pulse Rate 91 57 L Respiratory 16 16 Rate Blood Pressure 118/73 98/65 O2 Sat by Pulse 96 100 Oximetry Medical Decision Making <Miracle Hagan - Last Filed: 08/30/23 21:57> - Lab Data Result diagrams: 08/31/23 00:35 08/31/23 00:35 <Carlos Jones - Last Filed: 08/31/23 06:56> - Medical Decision Making I performed the quick note portion of the exam. Electronically signed by Miracle Hagan PA-C (Miracle Hagan) Was pt. sent in by a medical professional or institution (RUKHSANA Carlin, BUSINESS DEVELOPMENT DIRECTOR, urgent care, hospital, or jail...) When possible be specific @ -No Did you speak to anyone other than the patient for history (EMS, parent, family, police, friend...)? What history was obtained from this source @ -No Did you review nursing and triage notes (agree or disagree)? Why? @ -I reviewed and agree with nursing and triage notes Were old charts reviewed (outside hosp., previous admission, EMS record, old EKG, old radiological studies, urgent care reports/EKG's, jail records)? Report findings @ -Old charts reviewed Differential Diagnosis (chest pain, altered mental status, abdominal pain women, abdominal pain men, vaginal bleeding, weakness, fever, dyspnea, syncope, headache, dizziness, GI bleed, back pain, seizure, CVA, palpatations, mental health, musculoskeletal)? @ -Differential GI Bleed: Esophageal varices, aortoenteric fistula, Amelia-Nichols, gastritis, peptic ulcer disease, diverticulosis, inflammatory bowel disease, hemorrhoids, fissure, colitis, malignancy, Meckels diverticulum, this is not meant to be an all- inclusive list. EKG interpreted by me (3pts min.). @ -As above X-rays interpreted by me (1pt min.). @ -None done CT interpreted by me (1pt min.). @ -CT abdomen pelvis reveals findings consistent with Crohn's disease as well as suspected fistula and early developing abscess formation. Radiology concern for possible perforation however they see no pneumoperitoneum. Seems like the other 2 possibilities are more likely. Also has some perianal inflammation. U/S interpreted by me (1pt. min.). @ -None done What testing was considered but not performed or refused? (CT, X-rays, U/S, labs)? Why? @ -None What meds were considered but not given or refused? Why? @ -None Did you discuss the management of the patient with other professionals (professionals i.e. Dr., PA, BUSINESS DEVELOPMENT DIRECTOR, lab, RT, psych nurse, executive secretary social welfare, leak inspector, teacher, mortgage loan officer, case sealer)? Give summary @ -I discussed the CT results with the on-call surgeon, Dr. Appiah. He was in agreement that it seems less likely to be a perforation with the absence of obvious pneumoperitoneum. Was in agreement the plan for making the patient n.p.o. with antibiotics and admission under surgery. He requested that I admit under Dr. Monique. He also requested that I consult GI, Dr. Campos. Was smoking cessation discussed for >3mins.? @ -No Was critical care preformed (if so, how long)? @ -No Were there social determinants of health that impacted care today? How? (Homelessness, low income, unemployed, alcoholism, drug addiction, transportati on, low edu. Level, literacy, decrease access to med. care, senior living, rehab)? @ -No Was there de-escalation of care discussed even if they declined (Discuss DNR or withdrawal of care, Hospice)? DNR status @ -No What co-morbidities impacted this encounter? (DM, HTN, Smoking, COPD, CAD, Cancer, CVA, ARF, Chemo, Hep., AIDS, mental health diagnosis, sleep apnea, morbid obesity)? @ -Crohn's disease Was patient admitted / discharged? Hospital course, mention meds given and route, prescriptions, significant lab abnormalities, going to OR and other pertinent info. @ -Based on the patient's presentation and physical exam, presents to the emergency department for abdominal pain, with rectal bleeding. Initially seen as a quick note. I evaluated patient after workup was complete and CT imaging completed. Laboratory studies unremarkable. Patient has chronic anemia that is not any significantly worse than baseline. Coags within acceptable limits. Lactic acid within acceptable limits. CT imaging revealed diagnosis by radiology of possible perforation likely secondary to Crohn's inflammation however could also be a fistula or developing abscess. No obvious pneumoperitoneum present, which I believe makes perforation less likely. Patient will be given IV fluids, empiric antibiotics, as well as analgesia medications. He is made NPO. I discussed the CT results with the on-call surgeon, Dr. Appiah. He was in agreement that it seems less likely to be a perforation with the absence of ob vious pneumoperitoneum. Was in agreement the plan for making the patient n.p.o. with antibiotics and admission under surgery. He requested that I admit under Dr. Monique. He also requested that I consult GI, Dr. Campos. I updated the patient. He was in agreement this plan. Patient admitted. He was started empirically on IV cefepime and Flagyl. Undiagnosed new problem with uncertain prognosis? @ -No Drug Therapy requiring intensive monitoring for toxicity (Heparin, Nitro, Insulin, Cardizem)? @ -No Were any procedures done? @ -No Diagnosis/symptom? @ -Crohn's disease, rectal bleeding, abdominal abscess versus fistula versus less likely perforation Acute, or Chronic, or Acute on Chronic? @ -Acute Uncomplicated (without systemic symptoms) or Complicated (systemic symptoms)? @ -Complicated Side effects of treatment? @ -No Exacerbation, Progression, or Severe Exacerbation? @ -No Poses a threat to life or bodily function? How? (Chest pain, USA, MS, pneumonia, PE, COPD, DKA, ARF, appy, cholecystitis, CVA, Diverticulitis, Homicidal, Suicidal, threat to staff... and all critical care pts) @ -Yes (Carlos Jones) - Lab Data Lab Results 08/31/23 08/31/23 08/31/23 Range/Units 00:35 00:35 00:35 WBC 8.3 (3.8-10.6) k/uL RBC 4.46 (4.30-5.90) m/uL Hgb 12.4 L (13.0-17.5) gm/dL Hct 38.2 L (39.0-53.0) % MCV 85.6 (80.0-100.0) fL MCH 27.8 (25.0-35.0) pg MCHC 32.4 (31.0-37.0) g/dL RDW 14.1 (11.5-15.5) % Plt Count 283 (150-450) k/uL MPV 8.8 Neutrophils % 63 % Lymphocytes % 27 % Monocytes % 7 % Eosinophils % 1 % Basophils % 0 % Neutrophils # 5.2 (1.3-7.7) k/uL Lymphocytes # 2.2 (1.0-4.8) k/uL Monocytes # 0.6 (0-1.0) k/uL Eosinophils # 0.1 (0-0.7) k/uL Basophils # 0.0 (0-0.2) k/uL PT 10.2 (10.0-12.5) sec INR 0.9 (<1.2) APTT 30.2 H (22.0-30.0) sec Sodium 138 (137-145) mmol/L Potassium 4.5 (3.5-5.1) mmol/L Chloride 108 H (98-107) mmol/L Carbon Dioxide 23 (22-30) mmol/L Anion Gap 7 mmol/L BUN 17 (9-20) mg/dL Creatinine 0.87 (0.66-1.25) mg/dL Est GFR (CKD-EPI)AfAm >90 (>60 ml/min/1.73 sqM) Est GFR (CKD-EPI)NonAf >90 (>60 ml/min/1.73 sqM) Glucose 94 (74-99) mg/dL Calcium 9.2 (8.4-10.2) mg/dL Total Bilirubin 0.8 (0.2-1.3) mg/dL AST 21 (17-59) U/L ALT 8 (4-49) U/L Alkaline Phosphatase 83 (38-126) U/L Total Protein 7.2 (6.3-8.2) g/dL Albumin 3.7 (3.5-5.0) g/dL Amylase 86 (30-110) U/L Lipase 96 (23-300) U/L Disposition <Miracle Hagan - Last Filed: 08/30/23 21:57> Time of Disposition: 05:32 <Carlos Jones - Last Filed: 08/31/23 06:56> Clinical Impression: Rectal bleed, Crohn's disease, Intra-abdominal abscess Disposition: ADMITTED IP TO THIS [facility] Condition: Stable
[2023-08-31 01:01] LABS: Basophils % (A) 0 %; Eosinophils # (A) 0.1 k/uL (0-0.7); Eosinophils % (A) 1 %; HCT 38.2 % (39.0-53.0); HGB 12.4 gm/dL (13.0-17.5); Lymphocytes # (A) 2.2 k/uL (1.0-4.8); Lymphocytes % (A) 27 %; MCH 27.8 pg (25.0-35.0); MCHC 32.4 g/dL (31.0-37.0); MCV 85.6 fL (80.0-100.0); Mean Platelet Volume 8.8; Monocytes # (A) 0.6 k/uL (0-1.0); Monocytes % (A) 7 %; Neutrophils # (A) 5.2 k/uL (1.3-7.7); Neutrophils % (A) 63 %; Platelet Count 283 k/uL (150-450); RBC 4.46 m/uL (4.30-5.90); RDW 14.1 % (11.5-15.5); WBC 8.3 k/uL (3.8-10.6)
[2023-08-31 01:16] LABS: ALT 8 U/L (4-49); AST 21 U/L (17-59); African American GFR (CKD) >90 (>60 ml/min/1.73 sqM); Albumin 3.7 g/dL (3.5-5.0); Alkaline Phosphatase 83 U/L (38-126); Amylase 86 U/L (30-110); Anion Gap 7 mmol/L; Blood Urea Nitrogen 17 mg/dL (9-20); Calcium 9.2 mg/dL (8.4-10.2); Carbon Dioxide 23 mmol/L (22-30); Chloride 108 mmol/L (98-107); Glucose 94 mg/dL (74-99); Lipase 96 U/L (23-300); Non-African American GFR(CKD) >90 (>60 ml/min/1.73 sqM); Potassium 4.5 mmol/L (3.5-5.1); Sodium 138 mmol/L (137-145); Total Bilirubin 0.8 mg/dL (0.2-1.3); Total Protein 7.2 g/dL (6.3-8.2)
[2023-08-31 01:19] LABS: INR 0.9 (<1.2); Partial Thromboplastin Time 30.2 sec (22.0-30.0); Prothrombin Time 10.2 sec (10.0-12.5)
--- NOTE | 2023-08-31 05:09 | CT ---
EXAM: CT Abdomen and Pelvis With Intravenous Contrast CLINICAL HISTORY: ITS.REASON CT Reason: abdominal pain, rectal bleeding, hx Crohn's TECHNIQUE: Axial computed tomography images of the abdomen and pelvis with intravenous contrast. CTDI is 12.2 mGy and DLP is 533.3 mGy-cm. This CT exam was performed using one or more of the following dose reduction techniques: automated exposure control, adjustment of the mA and/or kV according to patient size, and/or use of iterative reconstruction technique. COMPARISON: No relevant prior studies available. FINDINGS: Lung bases: Unremarkable. No mass. No consolidation. Pleural space: Right medial posterior costophrenic sulcus calcified granuloma. ABDOMEN: Liver: 5 mm segment 8 hepatic dome hypodensity (series 201 image 10). 7 mm segment 7 hyperenhancing nodule (series 201 image 17), likely flash filling hemangioma. Gallbladder and bile ducts: Unremarkable. No calcified stones. No ductal dilation. Pancreas: Unremarkable. No mass. No ductal dilation. Spleen: Unremarkable. No splenomegaly. Adrenals: Unremarkable. No mass. Kidneys and ureters: Unremarkable. No solid mass. No hydronephrosis. PELVIS: Appendix: No findings to suggest acute appendicitis. Bladder: Unremarkable. No mass. Reproductive: Mild prostatomegaly and calcification. ABDOMEN and PELVIS: Intraperitoneal space, Stomach and bowel: Distal ileal bowel wall thickening and mild hyperenhancement, compatible with clinical history of Crohn disease. Mild tenting of the mesentery within the central pelvis apparent. Fluid-filled bowel loops without pathologic dilation. Probable fistula formation or bowel perforation in the right pelvis, with the 15 x 20 x 23 mm ill-defined extraluminal fluid and air collection (series 201 image 53, series 203 image 45, series 202 image 35). No distant pneumoperitoneum seen. Moderate amount of stool in the rectosigmoid colon with mild distention of the rectum and subtle perirectal stranding. Bones/joints: No acute fracture. No dislocation. Soft tissues: See above. Vasculature: Patent portal vein without thrombus. No abdominal aortic aneurysm. Lymph nodes: Unremarkable. No enlarged lymph nodes. IMPRESSION: 1. Crohn's ileitis changes. 2. Probable perforation and/or fistula formation, right anterior pelvic extraluminal gas and fluid collection without a well-defined wall, possible developing abscess. 3. Findings otherwise as above 4. Probable mild stercoral colitis changes, unlikely Crohn's related perianal fistula/inflammation.
[2023-08-31] MEDS ORDERED: ONDANSETRON 4 MG/2 ML VIAL IVP PRN (05:28)
[2023-08-31] MEDS ORDERED: NALOXONE 0.4 MG/ML 1 ML VIAL IV PRN (05:28)
[2023-08-31] MEDS: MORPHINE SULFATE 4 MG/ML SYRINGE IVP STA (06:28)
[2023-08-31] MEDS: SODIUM CHLORIDE 0.9% 1,000 ML IV STA ×2 (06:31)
[2023-08-31] MEDS: metroNIDAZOLE-NS PMX 500 MG in SALINE 1 100ML.BAG IVPB SCH (06:31)
[2023-08-31] MEDS: CEFEPIME 2 GM in SODIUM CHLORIDE 0.9% 100 ML IVPB SCH (08:03)
[2023-08-31] MEDS: PANTOPRAZOLE 40 MG/10 ML VIAL IV SCH (08:20)
[2023-08-31] MEDS: methylPREDNISolone SOD SUCCI 40 MG/ML 1 ML VIAL IV SCH (08:20)
[2023-08-31] MEDS: MORPHINE SULFATE 4 MG/ML SYRINGE IV PRN (09:59)
--- NOTE | 2023-08-31 11:19 | P.GSCN ---
History of Present Illness Consult date: 08/31/23 History of present illness: CHIEF COMPLAINT: Abdominal pain HISTORY OF PRESENT ILLNESS: This is a 57-year-old male with a known history of Crohn's that has gone untreated. His last colonoscopy was in December 2019 and was diagnosed with Crohn's at that time. Patient complains of lower to mid abdominal pain across the abdomen x 1 months. He started to have bright red b lood per rectum yesterday 2 times. He has been nauseated with chills. He came into the ER for further evaluation. CT scan had reported Crohn's ileitis changes. Patient has been started on antibiotics. He has been evaluated by GI service. Patient denies any prior abdominal surgeries. PAST MEDICAL HISTORY: COPD, GERD/Reflux, Hyperlipidemia, Osteoarthritis (OA), Pneumonia,Lower GI bleed, hemorrhoids, constipation, involuntary movements with reglan use, back pain, L shoulder pain d/t injury 2 yrs ago, RLS, migraines. Anxiety and depression PAST SURGICAL HISTORY: none. EGD and colonoscopy MEDICATIONS: See below ALLERGIES: See below SOCIAL HISTORY: No illicit drug use. Nicotine dependence REVIEW OF SYSTEMS: CONSTITUTIONAL: Denies fever or chills. HEENT: Denies blurred vision, vision changes, or eye pain. Denies hemoptysis CARDIOVASCULAR: Denies chest pain or pressure. RESPIRATORY: No shortness of breath. GASTROINTESTINAL: See HPI for pertinent findings HEMATOLOGIC: Denies bleeding disorders. GENITOURINARY: Denies any blood in urine or increased urinary frequency. SKIN: Denies pruitis. Denies rash. PHYSICAL EXAM: VITAL SIGNS: Reviewed GENERAL: Well-developed in no acute distress. HEENT: No sclera icterus. Extraocular movements grossly intact. Moist buccal m ucosa. Head is atraumatic, normocephalic. No nasal drainage. ABDOMEN: Soft. Nondistended. Tenderness to palpation across the mid and lower abdomen NEUROLOGIC: Alert and oriented. Cranial nerves II through XII grossly intact. LABORATORY DATA: WBC 8.3 Hgb 12.4 platelets 283 INR 0.9 Sodium is 138 potassium 4.5 creatinine 0.87 Lactic acid 0.7 LFTs normal Stool for occult blood positive IMAGING: CT scan abdomen pelvis reports Crohn's ileitis changes. Probable perforation and/or fistula formation, right anterior pelvic extraluminal gas and fluid collection without well-defined wall, possible developing abscess. Probable mild stercoral colitis changes unlikely Crohn's related perianal fistu la/inflammation ASSESSMENT: 1. Crohn's exacerbation PLAN: -CT scan findings and exam findings discussed with Dr. Monique. No surgical intervention planned. -Continue antibiotics -Continue steroids -Continue Crohn's management per GI recommendations -Consult medicine service for medical management Physician Toddler Lead Teacher note has been reviewed by physician. Signing provider agrees with the documented findings, assessment, and plan of care. Past Medical History Past Medical History: COPD, GERD/Reflux, Hyperlipidemia, Osteoarthritis (OA), Pneumonia Additional Past Medical History / Comment(s): Lower GI bleed, hemorrhoids, con stipation, involuntary movements with reglan use, back pain, L shoulder pain d/t injury 2 yrs ago, RLS, migraines. History of Any Multi-Drug Resistant Organisms: None Reported Additional Past Surgical History / Comment(s): COLONOSCOPY,EGD Past Anesthesia/Blood Transfusion Reactions: No Reported Reaction Past Psychological History: Anxiety, Depression Smoking Status: Current every day smoker Past Alcohol Use History: None Reported Past Drug Use History: None Reported - Past Family History Mother Family Medical History: GERD/Reflux Father Family Medical History: Cancer, Myocardial Infarction ([place]) Additional Family Medical History / Comment(s): Cancer in abdominal area, of a massive [place] at the age of 67yrs. Medications and Allergies Home Medications Medication Instructions Recorded Confirmed Type Budesonide [Entocort EC] 3 mg PO TID 08/31/23 08/31/23 History Allergies Allergy/AdvReac Type Severity Reaction Status Date / Time gemfibrozil [From Lopid] Allergy LEG Verified 08/31/23 07:30 CRAMPS,ANXIETY metoclopramide HCl Allergy Rapid Verified 08/31/23 07:30 [From Reglan] Heart Rate Surgical - Exam Vital Signs Temp Pulse Resp BP Pulse Ox 98.2 F 91 16 118/73 96 08/30/23 22:44 08/30/23 22:44 08/30/23 22:44 08/30/23 22:44 08/30/23 22:44 Results - Labs 08/31/23 00:35 08/31/23 00:35 Abnormal Lab Results - Last 24 Hours (Table) 08/31/23 08/31/23 08/31/23 Range/Units 00:35 00:35 00:35 Hgb 12.4 L (13.0-17.5) gm/dL Hct 38.2 L (39.0-53.0) % APTT 30.2 H (22.0-30.0) sec Chloride 108 H (98-107) mmol/L Diabetes panel 08/31/23 Range/Units 00:35 Sodium 138 (137-145) mmol/L Potassium 4.5 (3.5-5.1) mmol/L Chloride 108 H (98-107) mmol/L Carbon Dioxide 23 (22-30) mmol/L BUN 17 (9-20) mg/dL Creatinine 0.87 (0.66-1.25) mg/dL Glucose 94 (74-99) mg/dL Calcium 9.2 (8.4-10.2) mg/dL AST 21 (17-59) U/L ALT 8 (4-49) U/L Alkaline Phosphatase 83 (38-126) U/L Total Protein 7.2 (6.3-8.2) g/dL Albumin 3.7 (3.5-5.0) g/dL Calcium panel 08/31/23 Range/Units 00:35 Calcium 9.2 (8.4-10.2) mg/dL Albumin 3.7 (3.5-5.0) g/dL Pituitary panel 08/31/23 Range/Units 00:35 Sodium 138 (137-145) mmol/L Potassium 4.5 (3.5-5.1) mmol/L Chloride 108 H (98-107) mmol/L Carbon Dioxide 23 (22-30) mmol/L BUN 17 (9-20) mg/dL Creatinine 0.87 (0.66-1.25) mg/dL Glucose 94 (74-99) mg/dL Calcium 9.2 (8.4-10.2) mg/dL Adrenal panel 08/31/23 Range/Units 00:35 Sodium 138 (137-145) mmol/L Potassium 4.5 (3.5-5.1) mmol/L Chloride 108 H (98-107) mmol/L Carbon Dioxide 23 (22-30) mmol/L BUN 17 (9-20) mg/dL Creatinine 0.87 (0.66-1.25) mg/dL Glucose 94 (74-99) mg/dL Calcium 9.2 (8.4-10.2) mg/dL Total Bilirubin 0.8 (0.2-1.3) mg/dL AST 21 (17-59) U/L ALT 8 (4-49) U/L Alkaline Phosphatase 83 (38-126) U/L Total Protein 7.2 (6.3-8.2) g/dL Albumin 3.7 (3.5-5.0) g/dL
--- NOTE | 2023-08-31 11:32 | P.CONS ---
History of Present Illness - Reason for Consult Consult date: 08/31/23 Crohns, fistula, rectal bleeding Requesting physician: Carlos Jones - Chief Complaint Rectal bleeding - History of Present Illness This is a pleasant 57-year-old -[place] male with a known history of Crohn's disease who presented to the emergency department for rectal bleeding. Patient was actually diagnosed with Crohn's disease in 2019. At that time he mead d come in for rectal bleeding and abdominal pain. He had an EGD and colonoscopy done with Dr. Van. EGD found mild colitis and moderate hiatal hernia and colonoscopy found moderate ileitis with biopsy consistent with acute on chronic disease. He never followed up with gastroenterology since that time until yesterday. He was seen by Dr. Campos however he was not having any rectal bleeding, he was having some lower abdominal discomfort but nothing acute. He was started on budesonide 9 mg daily. He states he went home and yesterday evening and started having some cramping and bleeding. So he presented back to the emergency department. Apparently about a month ago he was having some abdominal pain he had a CT of the abdomen pelvis at that time which was reviewed with findings of mild fluid-filled ileum may have some minimal wall thickening. Correlate for mild ileitis. However there were no acute findings at that time and he was sent home. During this hospital presentation he had a repeat CT abdomen and pelvis with reported Crohn's ileitis changes. Probable perforation and/or fistula formation, right anterior pelvic extraluminal gas and fluid collection without a well-defined wall, possible developing abscess. Probable mild sterile coral colitis changes, unlikely Crohn's related perianal fistula/inflammation. He was admitted to general surgery with consultation to gastroenterology for Crohn's disease. States he had 2 bouts of bloody bowel movements yesterday. Still has some abdominal discomfort however pain is tolerable. Patient was scheduled for a colonoscopy next 09/04/2023 which will be canceled. WBC 8.3 hemoglobin 12.4 hematocrit 38 platelet count 283,000 INR 0.9 sodium 138 potassium 4.5 BUN 17 creatinine 0.8 total bilirubin 0.8 AST 21 ALT 8 alkaline phosphatase 83 lipase 96 Review of Systems REVIEW OF SYSTEMS: CARDIOPULMONARY: No chest pain or shortness of breath. Gastrointestinal: Right lower abdominal pain. No nausea or vomiting. No hematemesis, coffee-ground emesis. Rectal bleeding x 2 episodes. Bright red GENITOURINARY: No dysuria or hematuria. MUSCULOSKELETAL: Reports normal range of motion. SKIN: No rashes. No jaundice. ENDOCRINE: No chills, fevers. No excessive weight gain or loss. No polydipsia or polyuria. PSYCHIATRIC: Unremarkable. NEUROLOGY: No change in mental status. Denies dizziness, headache. ENT: Vision unremarkable. CONSTITUTIONAL: No recent weight loss. No fever, chills, night sweats. Past Medical History Past Medical History: COPD, GERD/Reflux, Hyperlipidemia, Osteoarthritis (OA), Pneumonia Additional Past Medical History / Comment(s): Lower GI bleed, hemorrhoids, constipation, involuntary movements with reglan use, back pain, L shoulder pain d/t injury 2 yrs ago, RLS, migraines. History of Any Multi-Drug Resistant Organisms: None Reported Additional Past Surgical History / Comment(s): COLONOSCOPY,EGD Past Anesthesia/Blood Transfusion Reactions: No Reported Reaction Past Psychological History: Anxiety, Depression Smoking Status: Current every day smoker Past Alcohol Use History: None Reported Past Drug Use History: None Reported - Past Family History Mother Family Medical History: GERD/Reflux Father Family Medical History: Cancer, Myocardial Infarction (HI) Additional Family Medical History / Comment(s): Cancer in abdominal area, of a massive HI at the age of 67yrs. Medications and Allergies Home Medications Medication Instructions Recorded Confirmed Type Budesonide [Entocort EC] 3 mg PO TID 08/31/23 08/31/23 History Allergies Allergy/AdvReac Type Severity Reaction Status Date / Time gemfibrozil [From Lopid] Allergy LEG Verified 08/31/23 07:30 CRAMPS,ANXIETY metoclopramide HCl Allergy Rapid Verified 08/31/23 07:30 [From Reglan] Heart Rate Physical Exam Vitals: Vital Signs Temp Pulse Resp BP Pulse Ox 08/31/23 06:15 97.7 F 57 L 16 98/65 100 08/30/23 22:44 98.2 F 91 16 118/73 96 Intake and Output 08/30/23 08/31/23 08/31/23 22:59 06:59 14:59 Other: Weight 64.864 kg General appearance: The patient is alert, oriented, appears in no acute distress. HET: Head is normocephalic and atraumatic. Conjunctiva pink. Sclera anicteric. Neck: Supple without lymphadenopathy. Trachea midline. Heart: Regular. Lungs: Equal expansion, normal respiratory effort. Abdomen: Soft, right lower quadrant tenderness, nondistended. No guarding or rigidity. Skin: No rashes. No jaundice. Extremities: Normal skin color and turgor. No pedal edema. Neurological: No focal deficits. Alert and oriented x3. Results CBC & Chem 7: 08/31/23 00:35 08/31/23 00:35 Labs: Abnormal Lab Results - Last 24 Hours (Table) 08/31/23 08/31/23 08/31/23 Range/Units 00:35 00:35 00:35 Hgb 12.4 L (13.0-17.5) gm/dL Hct 38.2 L (39.0-53.0) % APTT 30.2 H (22.0-30.0) sec Chloride 108 H (98-107) mmol/L Comments: CT abdomen and pelvis with reported Crohn's ileitis changes. Probable perforation and/or fistula formation, right anterior pelvic extraluminal gas and fluid collection without a well-defined wall, possible developing abscess. Probable mild sterile coral colitis changes, unlikely Crohn's related perianal fistula/inflammation. Assessment and Plan (1) Crohn's disease Narrative/Plan: 57-year-old male diagnosed with Crohn's disease was in 2020 who has not been following with gastroenterology up until yesterday. He has not been on any treatment for his Crohn's disease. Apparently about a month ago he had presented to the emergency department with abdominal pain however there were no acute findings on CT report and he was sent home. He for followed up with Dr. Campos yesterday and overall was doing okay no complaints of rectal bleeding, was having diarrhea and some abdominal discomfort but nothing severe. He had been afebrile. He then presented to the emergency department with bright red blood per rectum and had a CT of the abdomen pelvis concerning for fistula, abdominal abscess, and ileitis. He was admitted to general surgery. They have following closely. He is started on IV antibiotics including cefepime and Flagyl. He is n.p.o. No further bleeding. Will start patient on Solu-Medrol 20 mg every 8 hours for inflammation. Defer rest of management to general surgery. Current Visit: Yes Status: Acute Code(s): K50.90 - CROHN'S DISEASE, UNSPECIFIED, WITHOUT COMPLICATIONS SNOMED Code(s): 71634931 (2) Intra-abdominal abscess Current Visit: Yes Status: Acute Code(s): K65.1 - PERITONEAL ABSCESS SNOMED Code(s): 36140431 (3) Ileitis Current Visit: No Status: Acute Code(s): K52.9 - NONINFECTIVE GASTROENTERITIS AND COLITIS, UNSPECIFIED SNOMED Code(s): 64325082 Plan: 1. Continue symptomatic and supportive care 2. Continue IV antibiotics 3. Will start patient on Solu-Medrol 20 mg every 8 hours 4. Keep n.p.o. until further evaluated by general surgery 5. Further management per general surgery 6. Patient to follow-up with gastroenterology on discharge Thank you for allowing us to participate in the care of the patient, the GI service will sign off, gastroenterology will not be available at the hospital this weekend and through next week. If further evaluation by gastroenterology is required the patient will need transfer as per the primary team's discretion. Dr. Prateek Campos I agree with the dictator's note, documented as a scribe by Liss Nichole.
[2023-08-31] MEDS: SODIUM CHLORIDE 0.9% 1,000 ML IV SCH (12:32)
--- NOTE | 2023-08-31 12:34 | P.HPIM ---
History of Present Illness Patient is a 57-year-old male comes emergency department with complaints of 7/10 sharp diffuse abdominal pain. Patient does have history of Crohn's disease. Patient takes budesonide at home. CT of the abdomen that was done here was concerning for fistula and possible abscess. General surgery evaluated the patient and general surgery is not recommending any surgical intervention at this time. Patient does not have any fever here CT is consistent with Crohn's colitis. ESR and CRP were ordered patient does not have any leukocytosis. Patient also was complaining of occasional bleed with bowel movements patient has been having 3-4 bowel movements for about a month. REVIEW OF SYSTEMS: CONSTITUTIONAL: No fever, no malaise, no fatigue. HEENT: No recent visual problems or hearing problems. Denied any sore throat. CARDIOVASCULAR: No chest pain, orthopnea, PND, no palpitations, no syncope. PULMONARY: No shortness of breath, no cough, no hemoptysis. GASTROINTESTINAL: As mentioned in HPI NEUROLOGICAL: No headaches, no weakness, no numbness. HEMATOLOGICAL: Denies any bleeding or petechiae. GENITOURINARY: Denies any burning micturition, frequency, or urgency. MUSCULOSKELETAL/RHEUMATOLOGICAL: Denies any joint pain, swelling, or any muscle pain. ENDOCRINE: Denies any polyuria or polydipsia. The rest of the 14-point review of systems is negative. PHYSICAL EXAMINATION: GENERAL: The patient is alert and oriented x3, not in any acute distress. Well developed, well nourished. HEENT: Pupils are round and equally reacting to light. EOMI. No scleral icterus. No conjunctival pallor. Normocephalic, atraumatic. No pharyngeal erythema. No thyromegaly. CARDIOVASCULAR: S1 and S2 present. No murmurs, rubs, or gallops. PULMONARY: Chest is clear to auscultation, no wheezing or crackles. ABDOMEN: Soft, nontender, nondistended, normoactive bowel sounds. No palpable organomegaly. MUSCULOSKELETAL: No joint swelling or deformity. EXTREMITIES: No cyanosis, clubbing, or pedal edema. NEUROLOGICAL: Gross neurological examination did not reveal any focal deficits. SKIN: No rashes. Assessment and plan -Crohn's colitis: Patient was started on systemic steroids which will be continued monitor, ESR and CRP were ordered. -Hyperchloremic metabolic acidosis secondary to IV normal saline which will be transition to half-normal saline -Possible fistula/abscess as per the CT scan of the abdomen: General surgery evaluated the patient not recommending any surgical intervention at this time patient is not septic clinically. DVT prophylaxis: Early ambulation Past Medical History Past Medical History: COPD, GERD/Reflux, Hyperlipidemia, Osteoarthritis (OA), Pneumonia Additional Past Medical History / Comment(s): Lower GI bleed, hemorrhoids, constipation, involuntary movements with reglan use, back pain, L shoulder pain d/t injury 2 yrs ago, RLS, migraines. History of Any Multi-Drug Resistant Organisms: None Reported Additional Past Surgical History / Comment(s): COLONOSCOPY,EGD Past Anesthesia/Blood Transfusion Reactions: No Reported Reaction Past Psychological History: Anxiety, Depression Smoking Status: Current every day smoker Past Alcohol Use History: None Reported Past Drug Use History: None Reported - Past Family History Mother Family Medical History: GERD/Reflux Father Family Medical History: Cancer, Myocardial Infarction (ME) Additional Family Medical History / Comment(s): Cancer in abdominal area, of a massive ME at the age of 67yrs. Medications and Allergies Home Medications Medication Instructions Recorded Confirmed Type Budesonide [Entocort EC] 3 mg PO TID 08/31/23 08/31/23 History Allergies Allergy/AdvReac Type Severity Reaction Status Date / Time gemfibrozil [From Lopid] Allergy LEG Verified 08/31/23 07:30 CRAMPS,ANXIETY metoclopramide HCl Allergy Rapid Verified 08/31/23 07:30 [From Reglan] Heart Rate Physical Exam Vitals: Vital Signs Temp Pulse Resp BP Pulse Ox 08/31/23 06:15 97.7 F 57 L 16 98/65 100 08/30/23 22:44 98.2 F 91 16 118/73 96 Intake and Output 08/30/23 08/31/23 08/31/23 22:59 06:59 14:59 Other: Weight 64.864 kg Results CBC & Chem 7: 08/31/23 00:35 08/31/23 00:35 Labs: Abnormal Lab Results - Last 24 Hours (Table) 08/31/23 08/31/23 08/31/23 Range/Units 00:35 00:35 00:35 Hgb 12.4 L (13.0-17.5) gm/dL Hct 38.2 L (39.0-53.0) % APTT 30.2 H (22.0-30.0) sec Chloride 108 H (98-107) mmol/L C-Reactive Protein (<1.0) mg/dL 08/31/23 Range/Units 11:45 Hgb (13.0-17.5) gm/dL Hct (39.0-53.0) % APTT (22.0-30.0) sec Chloride (98-107) mmol/L C-Reactive Protein 1.5 H (<1.0) mg/dL
[2023-08-31] MEDS: HYDROmorphone 1 MG/ML 1 ML SYRINGE IVP STA (22:47)
--- NOTE | 2023-09-01 09:17 | P.PN ---
Progress Note - Text Progress Note Date: 09/01/23 Admitted for rectal bleeding and known history of Crohns without prior treatment. He has mild lower abdominal discomfort. The CT shows a thickened ileum but no proximal bowel dilatation. He is on steroids and diet could be advanced and modifired as needed for bowel prep.
[2023-09-01 10:29] LABS: Basophils # (A) 0.02 X 10*3/uL (0.00-0.10); Basophils % (A) 0.2 %; Eosinophils # (A) 0 X 10*3/uL (0.04-0.35); Eosinophils % (A) 0 %; HCT 32.7 % (39.6-50.0); HGB 10.4 g/dL (13.0-17.0); Lymphocytes # (A) 1.37 X 10*3/uL (0.90-5.00); MCHC 31.8 g/dL (32.0-37.0); MCV 84.9 FL (80.0-97.0); Mean Platelet Volume 11.7 FL (9.5-12.2); Monocytes # (A) 0.45 X 10*3/uL (0.20-1.00); Monocytes % (A) 5.6 %; NRBC Per 100 WBC 0 X 10*3/uL (0.00-0.01); Neutrophils # (A) 6.19 X 10*3/uL (1.80-7.70); Platelet Count 264 X 10*3/uL (140-440); RBC 3.85 X 10*6/uL (4.40-5.60); RDW 14.6 % (11.5-14.5); WBC 8.05 X 10*3/uL (4.50-10.00)
[2023-09-01 10:44] LABS: BUN/Creat Ratio 13.44 Ratio (12.00-20.00); Blood Urea Nitrogen 12.1 mg/dL (9.0-27.0); Calcium 8.6 mg/dL (8.7-10.3); Carbon Dioxide 23.5 mmol/L (21.6-31.8); Chloride 108 mmol/L (96-109); Glucose 112 mg/dL (70-110); Potassium 4.4 mmol/L (3.5-5.5); Sodium 140 mmol/L (135-145)
[2023-09-01] MEDS: HYDROcodone/APAP 5-325MG 1 EACH TAB PO PRN (13:37)
[2023-09-01] MEDS ORDERED: ACETAMINOPHEN TAB 325 MG TAB PO PRN (23:04)
--- NOTE | 2023-09-01 23:05 | P.PN ---
Subjective Progress Note Date: 09/01/23 Patient is a 57-year-old male comes emergency department with complaints of 7/10 sharp diffuse abdominal pain. Patient does have history of Crohn's disease. Patient takes budesonide at home. CT of the abdomen that was done here was concerning for fistula and possible abscess. General surgery evaluated the patient and general surgery is not recommending any surgical intervention at this time. Patient does not have any fever here CT is consistent with Crohn's colitis. ESR and CRP were ordered patient does not have any leukocytosis. Patient also was complaining of occasional bleed with bowel movements patient has been having 3-4 bowel movements for about a month. 09/01/2023 Patient resting in bed he does continue to report he had an abdominal pain with mild tenderness over the right and left lower quadrant. He has not reported any bowel movement over the last 24 hours. He does state that he feels better when he came in. He continues on IV Solu-Medrol as well as antibiotics in the form of IV cefepime and IV Flagyl. These will be continued. ESR was within normal limits at 20 with a mildly elevated CRP. We will continue current management and monitor patient overnight. Review of Systems Constitutional: Denied any fatigue denied any fever. Cardio vascular: denied any chest pa miting, diarrhea Pulmonary: Denied any shortness of breath cough Neurologic denied any new focal deficits All inpatient medications were reviewed and appropriate changes in these medications as dictated in the interval history and assessment and plan. PHYSICAL EXAMINATION: GENERAL: The patient is alert and oriented x3, not in any acute distress. Well developed, well nourished. HEENT: Pupils are round and equally reacting to light. EOMI. No scleral icterus. No conjunctival pallor. Normocephalic, atraumatic. No pharyngeal erythema. No thyromegaly. CARDIOVASCULAR: S1 and S2 present. No murmurs, rubs, or gallops. PULMONARY: Chest is clear to auscultation, no wheezing or crackles. ABDOMEN: Soft, nontender, nondistended, normoactive bowel sounds. No palpable organomegaly. MUSCULOSKELETAL: No joint swelling or deformity. EXTREMITIES: No cyanosis, clubbing, or pedal edema. NEUROLOGICAL: Gross neurological examination did not reveal any focal deficits. SKIN: No rashes. Assessment and plan -Crohn's colitis: Patient was started on systemic steroids which will be continued, sed rate normal CRP mildly elevated we will continue steroids and follow-up with patient in the morning -Hyperchloremic metabolic acidosis secondary to IV normal saline, resolved -Possible fistula/abscess as per the CT scan of the abdomen: General surgery evaluated the patient not recommending any surgical intervention at this time patient is not septic clinically. GI prophylaxis DVT prophylaxis Full code The impression and plan of care has been dictated by Linda Loyd, Nurse Practitioner as directed. Dr. Smith MD I have performed a history and physical examination and medical decision making of this patient, discussed the same with the dictator, and agree with the dictators assessment and plan as written, documented as a scribe. Based on total visit time, I have performed more than 50% of this visit. Objective - Vital Signs Vital signs: Vital Signs Temp 97.4 F L 09/01/23 20:00 Pulse 68 09/01/23 20:00 Resp 20 09/01/23 20:00 BP 123/72 09/01/23 20:00 Pulse Ox 97 09/01/23 20:00 FiO2 Intake & Output 09/01/23 09/01/23 09/02/23 06:59 18:59 06:59 Intake Total 900 Output Total 400 725 Balance 500 -725 Intake: Intake, IV Titration 900 Amount Cefepime 2 gm In Sodium 100 Chloride 0.9% 100 ml @ 25 mls/hr IVPB Q8H [facility] Rx#: [id number] Sodium Chloride 0.9% 1, 600 000 ml @ 75 mls/hr IV . [id number] [facility] Rx#:[id number] metroNIDAZOLE-NS PMX 500 200 mg In Saline 1 100ml.bag @ 100 mls/hr IVPB Q8H [facility] Rx#:[id number] Output: Urine 400 625 Other 100 Other: Voiding Method Toilet Toilet Toilet # Voids 1 1 - Labs CBC & Chem 7: 09/01/23 05:43 09/01/23 05:43 Labs: Abnormal Lab Results - Last 24 Hours (Table) 09/01/23 09/01/23 Range/Units 05:43 05:43 RBC 3.85 L (4.40-5.60) X 10*6/uL Hgb 10.4 L (13.0-17.0) g/dL Hct 32.7 L (39.6-50.0) % MCHC 31.8 L (32.0-37.0) g/dL RDW 14.6 H (11.5-14.5) % Eosinophils # 0 L (0.04-0.35) X 10*3/uL Glucose 112 H (70-110) mg/dL Calcium 8.6 L (8.7-10.3) mg/dL Microbiology - Last 24 Hours (Table) 08/31/23 05:50 Blood Culture - Preliminary Blood 08/31/23 05:35 Blood Culture - Preliminary Blood Assessment and Plan Time with Patient: Less than 30
[2023-09-02 05:41] LABS: Basophils % (A) 0 %; Eosinophils % (A) 0 %; HCT 32.9 % (39.0-53.0); Lymphocytes # (A) 1.6 k/uL (1.0-4.8); Lymphocytes % (A) 15 %; MCH 28.9 pg (25.0-35.0); MCHC 33.4 g/dL (31.0-37.0); MCV 86.3 fL (80.0-100.0); Mean Platelet Volume 9.1; Monocytes # (A) 0.5 k/uL (0-1.0); Monocytes % (A) 5 %; Neutrophils # (A) 8.5 k/uL (1.3-7.7); Neutrophils % (A) 80 %; Platelet Count 279 k/uL (150-450); RBC 3.82 m/uL (4.30-5.90); RDW 14.1 % (11.5-15.5); WBC 10.7 k/uL (3.8-10.6)
[2023-09-02] MEDS: HEPARIN SODIUM,PORCINE 5,000 UNIT/ML 1 ML VIAL SQ SCH (08:33)
--- NOTE | 2023-09-02 09:29 | P.PN ---
Subjective Progress Note Date: 09/02/23 Patient feels better. He states he still has pain. He is tolerating diet. On exam vital signs appear stable. Abdomen is soft there is minimal tenderness throughout. There is no rebound or guarding. Acute exacerbation of untreated Crohn's disease. Patient will receive medical management. Objective - Vital Signs Vital signs: Vital Signs Temp 98.4 F 09/02/23 07:47 Pulse 55 L 09/02/23 07:47 Resp 16 09/02/23 07:47 BP 108/62 09/02/23 07:47 Pulse Ox 98 09/02/23 07:47 FiO2 Intake & Output 09/01/23 09/02/23 09/02/23 18:59 06:59 18:59 Intake Total 1800 Output Total 725 Balance -725 1800 Intake: Intake, IV Titration 1300 Amount Cefepime 2 gm In Sodium 200 Chloride 0.9% 100 ml @ 25 mls/hr IVPB Q8H [facility] Rx#: [id number] Sodium Chloride 0.9% 1, 900 000 ml @ 75 mls/hr IV . [id number] [facility] Rx#:[id number] metroNIDAZOLE-NS PMX 500 200 mg In Saline 1 100ml.bag @ 100 mls/hr IVPB Q8H [facility] Rx#:[id number] Oral 500 Output: Urine 625 Other 100 Other: Voiding Method Toilet Toilet # Voids 1 4 # Bowel Movements 1 - Labs CBC & Chem 7: 09/02/23 05:11 09/01/23 05:43 Labs: Abnormal Lab Results - Last 24 Hours (Table) 09/01/23 09/01/23 09/02/23 Range/Units 05:43 05:43 05:11 WBC 10.7 H (3.8-10.6) k/uL RBC 3.85 L 3.82 L (4.40-5.60) X 10*6/uL Hgb 10.4 L 11.0 L (13.0-17.0) g/dL Hct 32.7 L 32.9 L (39.6-50.0) % MCHC 31.8 L (32.0-37.0) g/dL RDW 14.6 H (11.5-14.5) % Neutrophils # 8.5 H (1.3-7.7) k/uL Eosinophils # 0 L (0.04-0.35) X 10*3/uL Glucose 112 H (70-110) mg/dL Calcium 8.6 L (8.7-10.3) mg/dL Microbiology - Last 24 Hours (Table) 08/31/23 05:50 Blood Culture - Preliminary Blood 08/31/23 05:35 Blood Culture - Preliminary Blood
--- NOTE | 2023-09-02 14:27 | P.PN ---
Subjective Progress Note Date: 09/02/23 Patient is a 57-year-old male comes emergency department with complaints of 7/10 sharp diffuse abdominal pain. Patient does have history of Crohn's disease. Patient takes budesonide at home. CT of the abdomen that was done here was concerning for fistula and possible abscess. General surgery evaluated the patient and general surgery is not recommending any surgical intervention at this time. Patient does not have any fever here CT is consistent with Crohn's colitis. ESR and CRP were ordered patient does not have any leukocytosis. Patient also was complaining of occasional bleed with bowel movements patient has been having 3-4 bowel movements for about a month. 09/01/2023 Patient resting in bed he does continue to report he had an abdominal pain with mild tenderness over the right and left lower quadrant. He has not reported any bowel movement over the last 24 hours. He does state that he feels better when he came in. He continues on IV Solu-Medrol as well as antibiotics in the form of IV cefepime and IV Flagyl. These will be continued. ESR was within normal limits at 20 with a mildly elevated CRP. We will continue current management and monitor patient overnight. 09/02/2023 Patient is evaluated today on the medical floor. He continues to report significant abdominal pain about 8 out of 10 generalized but on examination appears more tender in the right lower quadrant. He is receiving a combination of [place] and Tylenol as well as IV morphine. Patient is tolerating diet. He has had multiple episodes of bloody stool mostly just blood-tinged with clots. His hemoglobin has remained stable hemodynamically he is stable. At this time he would not be a candidate for colonoscopy due to the inflammatory nature of his colitis. General surgery is following and patient states that he has been seeing Dr. Campos outpatient who did send in a prescription for prednisone prior to coming into the hospital. He states that he was unable to receive the prednisone due to insurance issues. He states that he has been on [place] in the past for back and shoulder issues he is requesting an increased dose however clinically on examination patient appears comfortable resting in bed laughing and talking with family. Review of Systems Constitutional: Denied any fatigue denied any fever. Cardio vascular: denied any chest pa miting, diarrhea Pulmonary: Denied any shortness of breath cough Neurologic denied any new focal deficits All inpatient medications were reviewed and appropriate changes in these medications as dictated in the interval history and assessment and plan. PHYSICAL EXAMINATION: GENERAL: The patient is alert and oriented x3, not in any acute distress. Well developed, well nourished. HEENT: Pupils are round and equally reacting to light. EOMI. No scleral icterus. No conjunctival pallor. Normocephalic, atraumatic. No pharyngeal erythema. No thyromegaly. CARDIOVASCULAR: S1 and S2 present. No murmurs, rubs, or gallops. PULMONARY: Chest is clear to auscultation, no wheezing or crackles. ABDOMEN: Soft, nontender, nondistended, normoactive bowel sounds. No palpable organomegaly. MUSCULOSKELETAL: No joint swelling or deformity. EXTREMITIES: No cyanosis, clubbing, or pedal edema. NEUROLOGICAL: Gross neurological examination did not reveal any focal deficits. SKIN: No rashes. Assessment and plan -Crohn's colitis: Patient was started on systemic steroids which will be continued, sed rate normal CRP mildly elevated we will continue steroids and follow-up with patient, he is also on combination of IV cefepime and IV Flagyl since general surgery is following and patient will be referred back to Dr. Campos on discharge. Will continue to monitor repeat CBC in the morning. -Hyperchloremic metabolic acidosis secondary to IV normal saline, resolved -Possible fistula/abscess as per the CT scan of the abdomen: General surgery evaluated the patient not recommending any surgical intervention at this time patient is not septic clinically. GI prophylaxis DVT prophylaxis Full code The impression and plan of care has been dictated by Linda Loyd, Nurse Practitioner as directed. Dr. Smith MD I have performed a history and physical examination and medical decision making of this patient, discussed the same with the dictator, and agree with the dictators assessment and plan as written, documented as a scribe. Based on total visit time, I have performed more than 50% of this visit. Objective - Vital Signs Vital signs: Vital Signs Temp 98.4 F 09/02/23 13:01 Pulse 72 09/02/23 13:01 Resp 16 09/02/23 13:01 BP 126/79 09/02/23 13:01 Pulse Ox 96 09/02/23 13:01 FiO2 Intake & Output 09/01/23 09/02/23 09/02/23 18:59 06:59 18:59 Intake Total 1800 Output Total 725 300 Balance -725 1800 -300 Intake: Intake, IV Titration 1300 Amount Cefepime 2 gm In Sodium 200 Chloride 0.9% 100 ml @ 25 mls/hr IVPB Q8H [facility] Rx#: [id number] Sodium Chloride 0.9% 1, 900 000 ml @ 75 mls/hr IV . [id number] [facility] Rx#:[id number] metroNIDAZOLE-NS PMX 500 200 mg In Saline 1 100ml.bag @ 100 mls/hr IVPB Q8H [facility] Rx#:[id number] Oral 500 Output: Urine 625 300 Other 100 Other: Voiding Method Toilet Toilet Toilet # Voids 1 4 # Bowel Movements 1 - Labs CBC & Chem 7: 09/02/23 05:11 09/01/23 05:43 Labs: Abnormal Lab Results - Last 24 Hours (Table) 09/02/23 Range/Units 05:11 WBC 10.7 H (3.8-10.6) k/uL RBC 3.82 L (4.30-5.90) m/uL Hgb 11.0 L (13.0-17.5) gm/dL Hct 32.9 L (39.0-53.0) % Neutrophils # 8.5 H (1.3-7.7) k/uL Microbiology - Last 24 Hours (Table) 08/31/23 05:50 Blood Culture - Preliminary Blood 08/31/23 05:35 Blood Culture - Preliminary Blood Assessment and Plan Time with Patient: Less than 30
[2023-09-02 19:43] LABS: Glucose,Whole Blood 168 mg/dL (70-110)
[2023-09-03 11:00] LABS: Basophils # (A) 0.01 X 10*3/uL (0.00-0.10); Basophils % (A) 0.1 %; Eosinophils # (A) 0 X 10*3/uL (0.04-0.35); Eosinophils % (A) 0 %; HCT 30.9 % (39.6-50.0); HGB 9.8 g/dL (13.0-17.0); Lymphocytes # (A) 1.92 X 10*3/uL (0.90-5.00); Lymphocytes % (A) 22.3 %; MCH 27.2 pg (27.0-32.0); MCHC 31.7 g/dL (32.0-37.0); MCV 85.8 FL (80.0-97.0); Monocytes # (A) 0.76 X 10*3/uL (0.20-1.00); Monocytes % (A) 8.8 %; NRBC Per 100 WBC 0 X 10*3/uL (0.00-0.01); Neutrophils # (A) 5.87 X 10*3/uL (1.80-7.70); Neutrophils % (A) 68.3 %; Platelet Count 257 X 10*3/uL (140-440); RDW 14.9 % (11.5-14.5)
--- NOTE | 2023-09-03 13:52 | P.PN ---
Subjective Progress Note Date: 09/03/23 CHIEF COMPLAINT: Crohn's exacerbation HISTORY OF PRESENT ILLNESS: Patient complains of abdominal pain. But does report it is improved since admission. He did have a bloody bowel movement yesterday. Denies any nausea or vomiting. Afebrile. WBC 8.6 Hgb down from 11 to 9.8. CRP normalized at 0.40 PHYSICAL EXAM: VITAL SIGNS: Reviewed. GENERAL: Well-developed in no acute distress. ABDOMEN: Soft. Nondistended. Mild diffuse tenderness with palpation NEUROLOGIC: Alert and oriented. Cranial nerves II through XII grossly intact. ASSESSMENT: 1. Acute Crohn's exacerbation PLAN: -Continue steroids -Continue antibiotics -Medicine service has advance diet to regular. Continue to monitor -Continue supportive care Physician Road Design Engineer note has been reviewed by physician. Signing provider agrees with the documented findings, assessment, and plan of care. Objective - Vital Signs Vital signs: Vital Signs Temp 98.2 F 09/03/23 08:00 Pulse 50 L 09/03/23 08:00 Resp 16 09/03/23 08:00 BP 110/70 09/03/23 08:00 Pulse Ox 97 09/03/23 08:00 FiO2 Intake & Output 09/02/23 09/03/23 09/03/23 18:59 06:59 18:59 Intake Total 360 300 Output Total 300 Balance 60 300 Intake: Oral 360 300 Output: Urine 300 Other: Voiding Method Toilet Toilet Toilet # Voids 4 - Labs CBC & Chem 7: 09/03/23 07:13 09/01/23 05:43 Labs: Abnormal Lab Results - Last 24 Hours (Table) 09/02/23 09/03/23 Range/Units 19:39 07:13 RBC 3.60 L (4.40-5.60) X 10*6/uL Hgb 9.8 L (13.0-17.0) g/dL Hct 30.9 L (39.6-50.0) % MCHC 31.7 L (32.0-37.0) g/dL RDW 14.9 H (11.5-14.5) % Eosinophils # 0 L (0.04-0.35) X 10*3/uL POC Glucose (mg/dL) 168 H (70-110) mg/dL Microbiology - Last 24 Hours (Table) 08/31/23 05:50 Blood Culture - Preliminary Blood 08/31/23 05:35 Blood Culture - Preliminary Blood
[2023-09-03] MEDS: HYDROcodone/APAP 7.5-325MG 1 EACH TAB PO PRN (21:12)
--- NOTE | 2023-09-03 22:34 | P.PN ---
Subjective Progress Note Date: 09/03/23 Patient is a 57-year-old male comes emergency department with complaints of 7/10 sharp diffuse abdominal pain. Patient does have history of Crohn's disease. Patient takes budesonide at home. CT of the abdomen that was done here was concerning for fistula and possible abscess. General surgery evaluated the patient and general surgery is not recommending any surgical intervention at this time. Patient does not have any fever here CT is consistent with Crohn's colitis. ESR and CRP were ordered patient does not have any leukocytosis. Patient also was complaining of occasional bleed with bowel movements patient has been having 3-4 bowel movements for about a month. 09/01/2023 Patient resting in bed he does continue to report he had an abdominal pain with mild tenderness over the right and left lower quadrant. He has not reported any bowel movement over the last 24 hours. He does state that he feels better when he came in. He continues on IV Solu-Medrol as well as antibiotics in the form of IV cefepime and IV Flagyl. These will be continued. ESR was within normal limits at 20 with a mildly elevated CRP. We will continue current management and monitor patient overnight. 09/02/2023 Patient is evaluated today on the medical floor. He continues to report significant abdominal pain about 8 out of 10 generalized but on examination appears more tender in the right lower quadrant. He is receiving a combination of [place] and Tylenol as well as IV morphine. Patient is tolerating diet. He has had multiple episodes of bloody stool mostly just blood-tinged with clots. His hemoglobin has remained stable hemodynamically he is stable. At this time he would not be a candidate for colonoscopy due to the inflammatory nature of his colitis. General surgery is following and patient states that he has been seeing Dr. Campos outpatient who did send in a prescription for prednisone prior to coming into the hospital. He states that he was unable to receive the prednisone due to insurance issues. He states that he has been on [place] in the past for back and shoulder issues he is requesting an increased dose however clinically on examination patient appears comfortable resting in bed laughing and talking with family. 09/03/2023 Patient continues to report significant 9 out of 10 abdominal discomfort however on examination when palpating patient does not get stressed and no abdominal guarding. He is asking for increased diet and he will be advanced to regular as tolerated. He does continue to report episodes of bloody stool and a sample was taken today which does reveal a maroon-colored stool. He will be monitored overnight again with a repeat CBC continues on IV steroids and IV antibiotics inpatient and general surgery is following. There is currently no GI coverage. Review of Systems Constitutional: Denied any fatigue denied any fever. Cardio vascular: denied any chest pa miting, diarrhea Pulmonary: Denied any shortness of breath cough Neurologic denied any new focal deficits All inpatient medications were reviewed and appropriate changes in these medica tions as dictated in the interval history and assessment and plan. PHYSICAL EXAMINATION: GENERAL: The patient is alert and oriented x3, not in any acute distress. Well developed, well nourished. HEENT: Pupils are round and equally reacting to light. EOMI. No scleral icterus. No conjunctival pallor. Normocephalic, atraumatic. No pharyngeal erythema. No thyromegaly. CARDIOVASCULAR: S1 and S2 present. No murmurs, rubs, or gallops. PULMONARY: Chest is clear to auscultation, no wheezing or crackles. ABDOMEN: Soft, nontender, nondistended, normoactive bowel sounds. No palpable organomegaly. MUSCULOSKELETAL: No joint swelling or deformity. EXTREMITIES: No cyanosis, clubbing, or pedal edema. NEUROLOGICAL: Gross neurological examination did not reveal any focal deficits. SKIN: No rashes. Assessment and plan -Crohn's colitis: Patient was started on systemic steroids which will be marek nued, sed rate normal CRP mildly elevated we will continue steroids and follow- up with patient, he is also on combination of IV cefepime and IV Flagyl since general surgery is following and patient will be referred back to Dr. Campos on discharge. Will continue to monitor repeat CBC in the morning. -Hyperchloremic metabolic acidosis secondary to IV normal saline, resolved -Possible fistula/abscess as per the CT scan of the abdomen: General surgery evaluated the patient not recommending any surgical intervention at this time patient is not septic clinically. GI prophylaxis DVT prophylaxis Full code The impression and plan of care has been dictated by Linda Loyd Nurse Practitioner as directed. Dr. Smith MD I have performed a history and physical examination and medical decision making of this patient, discussed the same with the dictator, and agree with the dictators assessment and plan as written, documented as a scribe. Based on total visit time, I have performed more than 50% of this visit. Objective - Vital Signs Vital signs: Vital Signs Temp 98.9 F 09/03/23 19:54 Pulse 52 L 09/03/23 19:54 Resp 16 09/03/23 19:54 BP 102/61 09/03/23 19:54 Pulse Ox 96 09/03/23 19:54 FiO2 Intake & Output 09/03/23 09/03/23 09/04/23 06:59 18:59 06:59 Intake Total 300 900 300 Output Total 275 Balance 300 625 300 Intake: Intake, IV Titration 900 Amount Sodium Chloride 0.9% 1, 900 000 ml @ 75 mls/hr IV . [id number] [facility] Rx#:[id number] Oral 300 300 Output: Urine 275 Other: Voiding Method Toilet Toilet Toilet # Voids 1 # Bowel Movements 1 1 - Labs CBC & Chem 7: 09/03/23 07:13 09/01/23 05:43 Labs: Abnormal Lab Results - Last 24 Hours (Table) 09/03/23 Range/Units 07:13 RBC 3.60 L (4.40-5.60) X 10*6/uL Hgb 9.8 L (13.0-17.0) g/dL Hct 30.9 L (39.6-50.0) % MCHC 31.7 L (32.0-37.0) g/dL RDW 14.9 H (11.5-14.5) % Eosinophils # 0 L (0.04-0.35) X 10*3/uL Microbiology - Last 24 Hours (Table) 08/31/23 05:50 Blood Culture - Preliminary Blood 08/31/23 05:35 Blood Culture - Preliminary Blood Assessment and Plan Time with Patient: Less than 30
[2023-09-04 08:51] LABS: Basophils # (A) 0.01 X 10*3/uL (0.00-0.10); Basophils % (A) 0.1 %; Eosinophils # (A) 0 X 10*3/uL (0.04-0.35); Eosinophils % (A) 0 %; HCT 31.9 % (39.6-50.0); Lymphocytes # (A) 1.67 X 10*3/uL (0.90-5.00); Lymphocytes % (A) 17.8 %; MCH 27.3 pg (27.0-32.0); MCHC 31.3 g/dL (32.0-37.0); MCV 87.2 FL (80.0-97.0); Mean Platelet Volume 12.1 FL (9.5-12.2); Monocytes # (A) 0.72 X 10*3/uL (0.20-1.00); Monocytes % (A) 7.7 %; NRBC Per 100 WBC 0.02 X 10*3/uL (0.00-0.01); Neutrophils # (A) 6.89 X 10*3/uL (1.80-7.70); Neutrophils % (A) 73.3 %; Platelet Count 252 X 10*3/uL (140-440); RBC 3.66 X 10*6/uL (4.40-5.60); RDW 14.9 % (11.5-14.5); WBC 9.39 X 10*3/uL (4.50-10.00)
[2023-09-04] MEDS: PANTOPRAZOLE 40 MG/10 ML VIAL IVP SCH (10:49)
--- NOTE | 2023-09-04 13:52 | P.PN ---
Subjective Progress Note Date: 09/04/23 CHIEF COMPLAINT: Crohn's exacerbation HISTORY OF PRESENT ILLNESS: Patient reports having a black tarry stool yesterday. He also reports have having black stools at home. Does complain of epigastric pain and right mid abdominal pain. Denies any nausea or vomiting. Afebrile. WBC 9.39 Hgb stable at 10 platelets 252 PHYSICAL EXAM: VITAL SIGNS: Reviewed. GENERAL: Well-developed in no acute distress. ABDOMEN: Soft. Nondistended. Epigastric tenderness and right mid abdominal tenderness NEUROLOGIC: Alert and oriented. Cranial nerves II through XII grossly intact. ASSESSMENT: 1. Acute Crohn's exacerbation 2. GI bleed with melanotic stools possibly related to Crohn's PLAN: -Patient scheduled for EGD tomorrow with Dr. Monique -Full liquid diet today -N.p.o. after midnight -Agree with IV Protonix twice a day -Continue steroids -Continue antibiotics -Continue supportive care Physician Pole Inspector note has been reviewed by physician. Signing provider agrees with the documented findings, assessment, and plan of care. Objective - Vital Signs Vital signs: Vital Signs Temp 98.4 F 09/04/23 12:41 Pulse 56 L 09/04/23 12:41 Resp 16 09/04/23 12:41 BP 119/69 09/04/23 12:41 Pulse Ox 96 09/04/23 12:41 FiO2 Intake & Output 09/03/23 09/04/23 09/04/23 18:59 06:59 18:59 Intake Total 900 300 Output Total 092 155 0827 Balance 625 100 -1600 Intake: Intake, IV Titration 900 Amount Sodium Chloride 0.9% 1, 900 000 ml @ 75 mls/hr IV . [id number] [facility] Rx#:[id number] Oral 300 Output: Urine [id number] Other: Voiding Method Toilet Toilet # Voids 1 1 # Bowel Movements 1 1 - Labs CBC & Chem 7: 09/04/23 04:27 09/01/23 05:43 Labs: Abnormal Lab Results - Last 24 Hours (Table) 09/04/23 Range/Units 04:27 RBC 3.66 L (4.40-5.60) X 10*6/uL Hgb 10.0 L (13.0-17.0) g/dL Hct 31.9 L (39.6-50.0) % MCHC 31.3 L (32.0-37.0) g/dL RDW 14.9 H (11.5-14.5) % Immature Gran # 0.10 H (0.00-0.04) X 10*3/uL Eosinophils # 0 L (0.04-0.35) X 10*3/uL NRBC/100 WBC Diff 0.02 H (0.00-0.01) X 10*3/uL Microbiology - Last 24 Hours (Table) 08/31/23 05:50 Blood Culture - Preliminary Blood 08/31/23 05:35 Blood Culture - Preliminary Blood
--- NOTE | 2023-09-04 15:55 | P.PN ---
Subjective Progress Note Date: 09/04/23 Patient is a 57-year-old male comes emergency department with complaints of 7/10 sharp diffuse abdominal pain. Patient does have history of Crohn's disease. Patient takes budesonide at home. CT of the abdomen that was done here was concerning for fistula and possible abscess. General surgery evaluated the patient and general surgery is not recommending any surgical intervention at this time. Patient does not have any fever here CT is consistent with Crohn's colitis. ESR and CRP were ordered patient does not have any leukocytosis. Patient also was complaining of occasional bleed with bowel movements patient has been having 3-4 bowel movements for about a month. 09/01/2023 Patient resting in bed he does continue to report he had an abdominal pain with mild tenderness over the right and left lower quadrant. He has not reported any bowel movement over the last 24 hours. He does state that he feels better when he came in. He continues on IV Solu-Medrol as well as antibiotics in the form of IV cefepime and IV Flagyl. These will be continued. ESR was within normal limits at 20 with a mildly elevated CRP. We will continue current management and monitor patient overnight. 09/02/2023 Patient is evaluated today on the medical floor. He continues to report significant abdominal pain about 8 out of 10 generalized but on examination appears more tender in the right lower quadrant. He is receiving a combination of [place] and Tylenol as well as IV morphine. Patient is tolerating diet. He has had multiple episodes of bloody stool mostly just blood-tinged with clots. His hemoglobin has remained stable hemodynamically he is stable. At this time he would not be a candidate for colonoscopy due to the inflammatory nature of his colitis. General surgery is following and patient states that he has been seeing Dr. Campos outpatient who did send in a prescription for prednisone prior to coming into the hospital. He states that he was unable to receive the prednisone due to insurance issues. He states that he has been on [place] in the past for back and shoulder issues he is requesting an increased dose however clinically on examination patient appears comfortable resting in bed laughing and talking with family. 09/03/2023 Patient continues to report significant 9 out of 10 abdominal discomfort however on examination when palpating patient does not get stressed and no abdominal guarding. He is asking for increased diet and he will be advanced to regular as tolerated. He does continue to report episodes of bloody stool and a sample was taken today which does reveal a maroon-colored stool. He will be monitored overnight again with a repeat CBC continues on IV steroids and IV antibiotics inpatient and general surgery is following. There is currently no GI coverage. 09/04/2023 Patient report abdominal discomfort about 7/10 continues on norco 7.5 reports improved pain control. He had black tarry stool discussed with general surgery he may need to be scoped. He is on IV steroids and IV antibiotics and also protonix was increased to BID. Hemoglobin remains stable. Review of Systems Constitutional: Denied any fatigue denied any fever. Cardio vascular: denied any chest pa miting, diarrhea Pulmonary: Denied any shortness of breath cough Neurologic denied any new focal deficits All inpatient medications were reviewed and appropriate changes in these med ications as dictated in the interval history and assessment and plan. PHYSICAL EXAMINATION: GENERAL: The patient is alert and oriented x3, not in any acute distress. Well developed, well nourished. HEENT: Pupils are round and equally reacting to light. EOMI. No scleral icterus. No conjunctival pallor. Normocephalic, atraumatic. No pharyngeal erythema. No thyromegaly. CARDIOVASCULAR: S1 and S2 present. No murmurs, rubs, or gallops. PULMONARY: Chest is clear to auscultation, no wheezing or crackles. ABDOMEN: Soft, nontender, nondistended, normoactive bowel sounds. No palpable organomegaly. MUSCULOSKELETAL: No joint swelling or deformity. EXTREMITIES: No cyanosis, clubbing, or pedal edema. NEUROLOGICAL: Gross neurological examination did not reveal any focal deficits. SKIN: No rashes. Assessment and plan -Crohn's colitis: Patient was started on systemic steroids which will be co ntinued, sed rate normal CRP mildly elevated we will continue steroids and follow-up with patient, he is also on combination of IV cefepime and IV Flagyl since general surgery is following and patient will be referred back to Dr. Campos on discharge. Will continue to monitor repeat CBC in the morning. -Black tarry stool concern for upper GI bleed surgery notified and possible EGD. -Hyperchloremic metabolic acidosis secondary to IV normal saline, resolved -Possible fistula/abscess as per the CT scan of the abdomen: General surgery evaluated the patient not recommending any surgical intervention at this time patient is not septic clinically. GI prophylaxis DVT prophylaxis Full code The impression and plan of care has been dictated by Linda Loyd, Nurse Practitioner as directed. Dr. Smith MD I have performed a history and physical examination and medical decision making of this patient, discussed the same with the dictator, and agree with the dictators assessment and plan as written, documented as a scribe. Based on total visit time, I have performed more than 50% of this visit. Objective - Vital Signs Vital signs: Vital Signs Temp 98.4 F 09/04/23 12:41 Pulse 56 L 09/04/23 12:41 Resp 16 09/04/23 12:41 BP 119/69 09/04/23 12:41 Pulse Ox 96 09/04/23 12:41 FiO2 Intake & Output 09/03/23 09/04/23 09/04/23 18:59 06:59 18:59 Intake Total 900 300 Output Total 185 100 0099 Balance 625 100 -1600 Intake: Intake, IV Titration 900 Amount Sodium Chloride 0.9% 1, 900 000 ml @ 75 mls/hr IV . [id number] [facility] Rx#:[id number] Oral 300 Output: Urine 512 088 [id number] Other: Voiding Method Toilet Toilet # Voids 1 1 # Bowel Movements 1 1 - Labs CBC & Chem 7: 09/04/23 04:27 09/01/23 05:43 Labs: Abnormal Lab Results - Last 24 Hours (Table) 09/04/23 Range/Units 04:27 RBC 3.66 L (4.40-5.60) X 10*6/uL Hgb 10.0 L (13.0-17.0) g/dL Hct 31.9 L (39.6-50.0) % MCHC 31.3 L (32.0-37.0) g/dL RDW 14.9 H (11.5-14.5) % Immature Gran # 0.10 H (0.00-0.04) X 10*3/uL Eosinophils # 0 L (0.04-0.35) X 10*3/uL NRBC/100 WBC Diff 0.02 H (0.00-0.01) X 10*3/uL Microbiology - Last 24 Hours (Table) 08/31/23 05:50 Blood Culture - Preliminary Blood 08/31/23 05:35 Blood Culture - Preliminary Blood Assessment and Plan Time with Patient: Less than 30
[2023-09-04] MEDS: MELATONIN 3 MG TABLET PO SCH (20:19)
[2023-09-05 07:35] LABS: HCT 30.6 % (39.0-53.0); HGB 10.2 gm/dL (13.0-17.5); MCH 28.8 pg (25.0-35.0); MCHC 33.3 g/dL (31.0-37.0); MCV 86.5 fL (80.0-100.0); Mean Platelet Volume 10.3; Platelet Count 238 k/uL (150-450); RBC 3.54 m/uL (4.30-5.90); RDW 15.2 % (11.5-15.5); WBC 11.5 k/uL (3.8-10.6)
[2023-09-05 07:47] LABS: African American GFR (CKD) >90 (>60 ml/min/1.73 sqM); Anion Gap 4 mmol/L; Blood Urea Nitrogen 11 mg/dL (9-20); Calcium 8.6 mg/dL (8.4-10.2); Carbon Dioxide 25 mmol/L (22-30); Chloride 109 mmol/L (98-107); Glucose 107 mg/dL (74-99); Non-African American GFR(CKD) >90 (>60 ml/min/1.73 sqM); Potassium 4.1 mmol/L (3.5-5.1); Sodium 138 mmol/L (137-145)
[2023-09-05 12:36] VITALS: BP 121/71; PULSE 51; RESP 16; TEMP 98.4
--- NOTE | 2023-09-05 13:26 | P.PN ---
Subjective Progress Note Date: 09/05/23 CHIEF COMPLAINT: Crohn's exacerbation HISTORY OF PRESENT ILLNESS: Patient scheduled for EGD today to evaluate for the black tarry stools. Patient is had no bowel movement this morning. He reports his abdominal pain is improving. Asking if he can go home after the EGD? Afebrile. WBC 11.5 Hgb stable at 10.2 PHYSICAL EXAM: VITAL SIGNS: Reviewed. GENERAL: Well-developed in no acute distress. ABDOMEN: Soft. Nondistended. NEUROLOGIC: Alert and oriented. Cranial nerves II through XII grossly intact. ASSESSMENT: 1. Acute Crohn's exacerbation 2. GI bleed with melanotic stools possibly related to Crohn's PLAN: -Patient scheduled for EGD today with Dr. Monique -Continue IV Protonix -Continue steroids -Continue antibiotics -Continue supportive care Physician Town Manager note has been reviewed by physician. Signing provider agrees with the documented findings, assessment, and plan of care. Objective - Vital Signs Vital signs: Vital Signs Temp 98.4 F 09/05/23 11:46 Pulse 51 L 09/05/23 11:46 Resp 16 09/05/23 11:46 BP 121/71 09/05/23 11:46 Pulse Ox 98 09/05/23 11:46 FiO2 Intake & Output 09/04/23 09/05/23 09/05/23 18:59 06:59 18:59 Intake Total 300 Output Total 2950 1100 1100 Balance -2950 -800 -1100 Intake: Oral 300 Output: Urine 2950 1100 1100 Other: Voiding Method Toilet # Voids 1 - Labs CBC & Chem 7: 09/05/23 07:09 09/05/23 07:09 Labs: Abnormal Lab Results - Last 24 Hours (Table) 09/05/23 09/05/23 Range/Units 07:09 07:09 WBC 11.5 H (3.8-10.6) k/uL RBC 3.54 L (4.30-5.90) m/uL Hgb 10.2 L (13.0-17.5) gm/dL Hct 30.6 L (39.0-53.0) % Chloride 109 H (98-107) mmol/L Creatinine 0.61 L (0.66-1.25) mg/dL Glucose 107 H (74-99) mg/dL Microbiology - Last 24 Hours (Table) 08/31/23 05:50 Blood Culture - Final Blood 08/31/23 05:35 Blood Culture - Final Blood
[2023-09-05] MEDS: IV FLUID CONTINUATION 1,000 ML IV ONE (15:58)
[2023-09-05] MEDS ORDERED: PROPOFOL 10 MG/ML 20 ML VIAL IV ONE (15:59)
[2023-09-05] MEDS ORDERED: LIDOCAINE 1% INJ 10MG/ML (20 ML MDV) ONE (15:59)
--- NOTE | 2023-09-05 16:09 | P.OP ---
Date of Procedure: 09/05/23 Preoperative Diagnosis: GI bleed Postoperative Diagnosis: Antral gastritis Procedure(s) Performed: EGD Anesthesia: MAC Surgeon: Michoacano Monique Pathology: other (Antrum) Condition: stable Disposition: PACU Description of Procedure: The patient was placed on the endoscopy table in the lateral position. He received IV sedation. The Loren/oropharynx passed in the esophagus and stomach. Scope was placed to the pylorus. The first and second portion of the duodenum appeared normal. The scope was then brought back to the antrum this appeared mildly flayed. A biopsy was performed. The scope was then retroflexed and mediastinum appeared normal. The GE junction was at 47. The distal esophagus appeared normal. Proximal esophagus normal. Scope withdrawn patient. There was no significant inflammatory changes seen in the duodenum or stomach.
--- NOTE | 2023-09-08 18:00 | CDI ---
Documentation Clarification Form Date: 09/08/2023 05:52:09 PM From: Leidy Proctor Phone: Admit Date: 08/31/2023 05:30:00 AM Patient Name: Charly Bragg Visit Number: [id number] Discharge Date: 09/05/2023 06:29:00 PM ATTENTION: The Clinical Documentation Specialists (CDI) and [facility] Coding Staff appreciate your assistance in clarifying documentation. Please respond to the clarification below the line at the bottom and electronically sign. The CDI & [facility] Coding staff will review the response and follow-up if needed. Please note: Queries are made part of the Legal Health Record. If you have any questions, please contact the author of this message via ITS. Dr. Mirtha Mtz The final diagnosis of the pathology report states chronic gastritis. Coding guidelines do not allow coding professionals to code based on pathology results; therefore, clarification is requested. History/risk factors: 57yo M, AcuteCrohn'sexacerbation, GIB, gastritis, anemia, hyperchloremia, metabolic acidosis Clinical Indicators: GI bleed, Antralgastritis Treatment: Stomach, Biopsy - Antrum Please clarify if you agree with the pathology report diagnosis of chronic gastritis: [x ] Yes [ ] No [ ] Other (please specify) [ ] Unable to determine (Template Last Revised: September 2020) MTDD
--- NOTE | 2023-09-08 21:26 | P.DS ---
Providers Date of admission: 08/31/23 05:30 Attending physician: Mirtha Mtz Consults: 08/31/23 05:27 Consult Physician Urgent Consulting Provider: Marlyn Campos Consult Reason/Comments: crohns, fistula, rectal bleeding Do you want consulting provider notified?: Yes 08/31/23 10:59 Consult Physician Routine Consulting Provider: Mirtha Mtz Consult Reason/Comments: medical management Do you want consulting provider notified?: Yes 08/31/23 14:58 Consult Physician Routine Consulting Provider: [place]oacano Monique Consult Reason/Comments: abdominal pain Do you want consulting provider notified?: Already Contacted Primary care physician: Stated None Hospital Course: Final Diagnosis -Acute Crohn's exacerbation -Antral gastritis as per EGD recommending to avoid NSAIDs and has been placed on protonix. -GI bleed with melanotic stools possibly related to Crohn's --Hyperchloremic metabolic acidosis secondary to IV normal saline, resolved -Possible fistula/abscess as per the CT scan of the abdomen: General surgery evaluated the patient not recommending any surgical intervention at this time patient is not septic clinically. Discharge Disposition Patient is stable for discharge home, needs close follow up with general surgery and his GI specialist, Dr Prateek Campos. He is recommended to continue on oral prednisone 20 mg twice a day for the next week and make an appointment to follow up with Dr Campos in the office. Additionally patient has been discharged on protonix daily. Continue antibiotic therapy with oral levaquin and flagyl for the next week. Recommend to repeat labs in 2 to 3 days for monitoring of patients hemoglobin which has remained stable this admission. Patient recommended to establish care with a primary care provider on discharge. Hospital Course Patient is a 57-year-old male comes emergency department with complaints of 7/10 sharp diffuse abdominal pain. Patient does have history of Crohn's disease. Patient takes budesonide at home. CT of the abdomen that was done here was concerning for fistula and possible abscess. General surgery evaluated the patient and general surgery is not recommending any surgical intervention at this time. Patient does not have any fever here CT is consistent with Crohn's colitis. Patient does not have any leukocytosis, his CRP and ESR were elevated. Patient also was complaining of occasional bleed with bowel movements started out as bloody and has now progressed to a black tarry colored stool. He was admitted to the hospital under medicine with a consult placed to general surgery for evaluation. He has had multiple episodes of bloody stool mostly just blood- tinged with clots. His hemoglobin has remained stable hemodynamically he is stable. At this time he would not be a candidate for colonoscopy due to the inflammatory nature of his colitis. Due to the black tarry stool he underwent EGD by general surgery with findings of antral gastritis and will be discharged on GI prophylaxis with protonix. Patient is tolerating increased diet his stool is not grossly bloody at this time. His abdominal discomfort has improved. He is not having any chest pain, no shortness of breath. No nausea, vomiting or di arrhea. His abdominal tenderness has also improved. He has normoactive bowel sounds, lungs are clear S1 S2 auscultated and he is alert x 3 no focal neurological deficits. His most recent hemoglobin is found to be 10.2. His renal function is normal. His CRP has normalized. He will be discharged home with the above mentioned recommendations. Please see medication reconciliation for a list of current medication. Thank you for allowing us to participate in the care of this patient. The impression and plan of care has been dictated by Linda Loyd, Nurse Practitioner as directed. Dr. Smith MD I have performed a history and physical examination and medical decision making of this patient, discussed the same with the dictator, and agree with the dictators assessment and plan as written, documented as a scribe. Based on total visit time, I have performed more than 50% of this visit. Patient Condition at Discharge: Stable Plan - Discharge Summary New Discharge Prescriptions: New Acetaminophen Tab [Tylenol] 650 mg PO Q6HR PRN tab PRN Reason: Fever And/ Or Pain predniSONE [Deltasone] 20 mg PO BID 7 Days #14 tab Pantoprazole [Protonix] 40 mg PO DAILY #14 tab metroNIDAZOLE [Flagyl] 500 mg PO TID 5 Days #15 tab Levofloxacin [Levaquin] 750 mg PO DAILY 5 Days #5 tab Discontinued Budesonide [Entocort EC] 3 mg PO TID Discharge Medication List Acetaminophen Tab [Tylenol] 650 mg PO Q6HR PRN tab 09/03/23 [Rx] Pantoprazole [Protonix] 40 mg PO DAILY #14 tab 09/03/23 [Rx] predniSONE [Deltasone] 20 mg PO BID 7 Days #14 tab 09/03/23 [Rx] Levofloxacin [Levaquin] 750 mg PO DAILY 5 Days #5 tab 09/05/23 [Rx] metroNIDAZOLE [Flagyl] 500 mg PO TID 5 Days #15 tab 09/05/23 [Rx] Follow up Appointment(s)/Referral(s): Marlyn Campos MD [STAFF PHYSICIAN] - 1 Week (GI Doctor - for Crohn's disease Please call office to make follow up appointment the office did not answer.) None,Stated [Primary Care Provider] - 1-2 days (Patient instructed to find a primary care physician and follow-up after discharge from hospital) Ambulatory/Diagnostic Orders: Complete Blood Count w/diff [LAB.AMB] Time Frame: 3 Days, Location: None Selected Patient Instructions/Handouts: Prednisone (By mouth), Metronidazole (By mouth), Levofloxacin (By mouth), Pantoprazole (By mouth), Crohn Disease (DC) Activity/Diet/Wound Care/Special Instructions: Recommend to establish care with a Primary care physician on discharge Follow up with Dr. Prateek Campos in 1 to 2 weeks Recommend to continue on oral prednisone 20 mg twice a day for the next week Repeat labs in 2 to 3 days - see prescription for blood work Discuss additional pain management with Dr. Prateek Campos for the Crohn's; can continue with over the counter tylenol as needed. Diet as tolerated. Activity limited until f/u Discharge/Stand Alone Forms: Work/School Release Discharge Disposition: HOME SELF-CARE
== END 2023-09-05 18:29 | disposition home or self-care (01) | DRG 385 ==
LOC: EC 21:40 → 4SSUR 08-31 05:30 → 5NMEDONC 08-31 19:31
PROVIDERS: ADMIT Internal Medicine; ATTEND Internal Medicine
PROC: 0DB78ZX Excision of Stomach, Pylorus, Via Natural or Artificial Opening Endoscopic, Diagnostic (ICD-10-PCS; principal; 2023-09-05 09:00)
DX: K50.114 Crohn's disease of large intestine with abscess (principal); K29.51 Unspecified chronic gastritis with bleeding; E87.20 Acidosis, unspecified; D63.8 Anemia in other chronic diseases classified elsewhere; E87.8 Other disorders of electrolyte and fluid balance, not elsewhere classified; K50.111 Crohn's disease of large intestine with rectal bleeding; K52.89 Other specified noninfective gastroenteritis and colitis; T50.3X5A Adverse effect of electrolytic, caloric and water-balance agents, initial encounter; F17.210 Nicotine dependence, cigarettes, uncomplicated; K44.9 Diaphragmatic hernia without obstruction or gangrene; E78.5 Hyperlipidemia, unspecified; Z88.8 Allergy status to other drugs, medicaments and biological substances
CPT/HCPCS: 36415; 43239; 74177; 80048; 80053; 82150; 82272; 83605; 83690; 85025; 85027; 85610; 85652; 85730; 86140; 87040; 88305; 96361; 96374; 96375; 96376; 99285

== ENCOUNTER → 2023-12-05 | Outpatient (CLI) | payer OTHER ==
[2023-12-06 02:03] LABS: Basophils # (A) 0.03 X 10*3/uL (0.00-0.10); Basophils % (A) 0.3 %; Eosinophils # (A) 0.06 X 10*3/uL (0.04-0.35); Eosinophils % (A) 0.6 %; HCT 38.6 % (39.6-50.0); HGB 12.3 g/dL (13.0-17.0); Lymphocytes # (A) 2.18 X 10*3/uL (0.90-5.00); Lymphocytes % (A) 20.4 %; MCH 27.3 pg (27.0-32.0); MCHC 31.9 g/dL (32.0-37.0); MCV 85.6 FL (80.0-97.0); Mean Platelet Volume 11.2 FL (9.5-12.2); Monocytes # (A) 0.61 X 10*3/uL (0.20-1.00); Monocytes % (A) 5.7 %; NRBC Per 100 WBC 0 X 10*3/uL (0.00-0.01); Neutrophils # (A) 7.77 X 10*3/uL (1.80-7.70); Neutrophils % (A) 72.6 %; Platelet Count 359 X 10*3/uL (140-440); RBC 4.51 X 10*6/uL (4.40-5.60); RDW 14.5 % (11.5-14.5); WBC 10.69 X 10*3/uL (4.50-10.00)
[2023-12-06 02:52] LABS: ALT 8 U/L (10-49); AST 16 U/L (14-35); Albumin 4.1 g/dL (3.8-4.9); Albumin/Globulin Ratio 1.32 Ratio (1.60-3.17); Alkaline Phosphatase 80 U/L (41-126); BUN/Creat Ratio 6.45 Ratio (12.00-20.00); Blood Urea Nitrogen 7.1 mg/dL (9.0-27.0); Calcium 9.1 mg/dL (8.7-10.3); Carbon Dioxide 21.2 mmol/L (21.6-31.8); Chloride 103 mmol/L (96-109); Globulin 3.1 g/dL (1.6-3.3); Glucose 128 mg/dL (70-110); Potassium 4.2 mmol/L (3.5-5.5); Sodium 137 mmol/L (135-145); Total Bilirubin 0.4 mg/dL (0.3-1.2); Total Protein 7.2 g/dL (6.2-8.2)
== END | disposition home or self-care (01) ==
LOC: LABWHC1 15:54
PROVIDERS: ATTEND Internal Medicine Gastroenterology
DX: K50.00 Crohn's disease of small intestine without complications (principal)
CPT/HCPCS: 36415; 80053; 85025; 86140

== ENCOUNTER → 2023-12-21 | Day surgery (SDC) | payer OTHER ==
[2023-12-21 08:44] VITALS: BP 131/77; PULSE 70; RESP 18; TEMP 98.2
[2023-12-21] MEDS: GLUCAGON 1 MG/ML VIAL IM STA (09:18)
--- NOTE | 2023-12-22 07:29 | MR ---
EXAMINATION TYPE: MR Enterography DATE OF EXAM: 12/21/2023 9:56 AM COMPARISON: CT 08/31/2023. CLINICAL INDICATION: Male 58 years old with a history of K50.00 CROHN'S DISEASE OF SMALL INTESTINE WI THOUT. Crohn's disease. TECHNIQUE: Standard multiplanar, multisequence imaging of the abdomen is performed without and with I V contrast, patient is injected with 7 mL intravenous Gadavist gadolinium contrast. Oral Volumen and Water was given as per enterography protocol. FINDINGS: LOWER CHEST: No significant findings. ABDOMEN Bowel: There is a short segment of terminal ileum bowel wall thickening extending up to 10.8 cm. Wall thickening up to 4 mm. There is mucosal hyperenhancement of this region. No evidence of bowel obstru ction, no evidence for stricture or fistulous tract formation. Peritoneum: No evidence of pneumoperitoneum, free fluid, or adenopathy. Liver: Simple appearing high T2 signal cyst. Gallbladder and Bile ducts: Unremarkable. Pancreas: Unremarkable. Spleen: Unremarkable. Adrenal glands: Unremarkable. Kidneys: Unremarkable. Bladder: Unremarkable. Reproductive: Unremarkable. Lymph Nodes: Vasculature: Unremarkable. No aortic aneurysm. Musculoskeletal: The osseous structures appear intact. Abdominal wall: Unremarkable. IMPRESSION: Evidence for active Crohn's disease involving the terminal ileum with a segment of wall thickening ex tending at least 10.8 cm. No evidence for obstruction.
== END ==
LOC: RADMRIMAIN 07:51
PROVIDERS: ATTEND Internal Medicine Gastroenterology
DX: K50.00 Crohn's disease of small intestine without complications (principal)
CPT/HCPCS: 96372; 72197; 74183; J1610; A9585

== ENCOUNTER 2024-04-18 12:43 | Inpatient (IN) | payer MEDICAID, OTHER ==
--- NOTE | 2024-04-18 13:34 | ED ---
General Adult HPI - General Chief complaint: Psychiatric Symptoms Stated complaint: Mental Health Time Seen by Provider: 04/18/24 12:45 Source: patient, police, RN notes reviewed, old records reviewed Mode of arrival: ambulatory - History of Present Illness Initial comments: Is a 58-year-old male who presents to the emergency in the custody of the police. Patient was acting very bizarre at one of the local stores and asked to tell her to call the police. When the police arrived the patient was stating the cartel is after him and he was sporting tonight in his pockets. Patient told me he had 3 nights and he was worried that some very bad people were after him. Patient states he has not on any drugs he denies any marijuana even. Patient states he did drink something this morning. Patient states he has not hurt anybody and no one is hurt him yet. Patient is fearful that someone might try to hurt him. According to the police the patient's mother stated that he m ight be on drugs - Related Data Home Medications Medication Instructions Recorded Confirmed Famotidine [Pepcid] 20 mg PO DAILY 04/18/24 04/18/24 QUEtiapine FUMARATE [SEROquel] 200 mg PO HS 04/18/24 04/18/24 Rosuvastatin [Crestor] 10 mg PO DAILY 04/18/24 04/18/24 buPROPion XL [Wellbutrin XL] 150 mg PO DAILY 04/18/24 04/18/24 busPIRone HCL [Buspar] 30 mg PO BID 04/18/24 04/18/24 traMADol HCL 50 mg PO Q4H PRN 04/18/24 04/18/24 Allergies Allergy/AdvReac Type Severity Reaction Status Date / Time gemfibrozil [From Lopid] Allergy LEG Verified 04/18/24 16:00 CRAMPS,ANXIETY metoclopramide HCl Allergy Rapid Verified 04/18/24 16:00 [From Reglan] Heart Rate Review of Systems ROS Statement: Those systems with pertinent positive or pertinent negative responses have been documented in the HPI. ROS Other: All systems not noted in ROS Statement are negative. Past Medical History Past Medical History: COPD, GERD/Reflux, Hyperlipidemia, Osteoarthritis (OA), Pneumonia Additional Past Medical History / Comment(s): Lower GI bleed, hemorrhoids, constipation, involuntary movements with reglan use, back pain, L shoulder pain d/t injury 2 yrs ago, RLS, migraines. History of Any Multi-Drug Resistant Organisms: None Reported Additional Past Surgical History / Comment(s): COLONOSCOPY,EGD Past Anesthesia/Blood Transfusion Reactions: No Reported Reaction Past Psychological History: Anxiety, Depression Smoking Status: Former smoker Past Alcohol Use History: None Reported Past Drug Use History: None Reported - Past Family History Mother Family Medical History: GERD/Reflux Father Family Medical History: Cancer, Myocardial Infarction (CT) Additional Family Medical History / Comment(s): Cancer in abdominal area, of a massive CT at the age of 67yrs. General Exam - General Exam Comments Initial Comments: GENERAL: Patient is well-developed and well-nourished. Patient is nontoxic and well- hydrated and is in no acute distress. ENT: Neck is soft and supple. No significant lymphadenopathy is noted. Oropharynx is clear. Moist mucous membranes. Neck has full range of motion without eliciting any pain. EYES: The sclera were anicteric and conjunctiva were pink and moist. Extraocular movements were intact and pupils were equal round and reactive to light. Eyelids were unremarkable. PULMONARY: Unlabored respirations. Good breath sounds bilaterally. No audible rales rhonchi or wheezing was noted. CARDIOVASCULAR: There is a regular rate and rhythm without any murmurs gallops or rubs. ABDOMEN: Soft and nontender with normal bowel sounds. SKIN: Skin is clear with no lesions or rashes and otherwise unremarkable. NEUROLOGIC: Patient is alert and oriented x3. Cranial nerves II through XII are grossly intact. Motor and sensory are also intact. Normal speech, volume and content. Symmetrical smile. MUSCULOSKELETAL: Normal extremities with adequate strength and full range of motion. No lower extremity swelling or edema. No calf tenderness. LYMPHATICS: No significant lymphadenopathy is noted PSYCHIATRIC: Patient is paranoid somebody is after him Course Vital Signs 04/18/24 04/18/24 12:46 15:00 Temperature 98.0 F Pulse Rate 101 H 81 Respiratory 20 18 Rate Blood Pressure 185/109 174/104 O2 Sat by Pulse 98 96 Oximetry Medical Decision Making - Medical Decision Making Was pt. sent in by a medical professional or institution (, PA, KNOWLEDGE MANAGEMENT ADVISOR, urgent care, hospital, or senior living...) When possible be specific @ -Police brought the patient in Did you speak to anyone other than the patient for history (EMS, parent, family, police, friend...)? What history was obtained from this source @ -Police gave all of the history from today's events Did you review nursing and triage notes (agree or disagree)? Why? @ -I reviewed and agree with nursing and triage notes Were old charts reviewed (outside hosp., previous admission, EMS record, old EKG, old radiological studies, urgent care reports/EKG's, senior living records)? Report findings @ -No old charts were reviewed Differential Diagnosis? @ -Differential Mental Health Depression, anxiety, bipolar, psychosis, schizophrenia, borderline personality, situational depression, adjustment disorder, behavioral disorder, brain tumor, malingering, substance abuse, encephalopathy, medication reaction, dementia, hypothyroidism, degenerative neurologic disorder, lupus.... This is not meant to be all-inclusive list EKG interpreted by me (3pts min.). @ -As above X-rays interpreted by me (1pt min.). @ -None done CT interpreted by me (1pt min.). @ -None done U/S interpreted by me (1pt. min.). @ -None done What testing was considered but not performed or refused? (CT, X-rays, U/S, labs)? Why? @ -None What meds were considered but not given or refused? Why? @ -None Did you discuss the management of the patient with other professionals (professionals i.e. , PA, KNOWLEDGE MANAGEMENT ADVISOR, lab, RT, psych nurse, manager social, arts administrator or manager, teacher, [place] police officer, supervisor case loading)? Give summary @ -I spoke with the EPS and they spoke with the psychiatrist as well as the patient and determined that the patient needed to be admitted. Was smoking cessation discussed for >3mins.? @ -No Was critical care preformed (if so, how long)? @ -No Were there social determinants of health that impacted care today? How? (Homelessness, low income, unemployed, alcoholism, drug addiction, transportation, low edu. Level, literacy, decrease access to med. care, senior living, rehab)? @ -No Was there de-escalation of care discussed even if they declined (Discuss DNR or withdrawal of care, Hospice)? DNR status @ -No What co-morbidities impacted this encounter? (DM, HTN, Smoking, COPD, CAD, Cancer, CVA, ARF, Chemo, Hep., AIDS, mental health diagnosis, sleep apnea, morbid obesity)? @ -None Was patient admitted / discharged? Hospital course, mention meds given and route, prescriptions, significant lab abnormalities, going to OR and other pertinent info. @ -Patient has no physical complaints. Patient was evaluated by EPS and it was determined the patient needs to be admitted for further evaluation Undiagnosed new problem with uncertain prognosis? @ -No Drug Therapy requiring intensive monitoring for toxicity (Heparin, Nitro, Insulin, Cardizem)? @ -No Were any procedures done? @ -No Diagnosis/symptom? @ -Acute psychosis Acute, or Chronic, or Acute on Chronic? @ -Acute Uncomplicated (without systemic symptoms) or Complicated (systemic symptoms)? @ -Complicated Side effects of treatment? @ -No Exacerbation, Progression, or Severe Exacerbation? @ -No Poses a threat to life or bodily function? How? (Chest pain, USA, CT, pneumonia, PE, COPD, DKA, ARF, appy, cholecystitis, CVA, Diverticulitis, Homicidal, Suicidal, threat to staff... and all critical care pts) @ -Yes this can lead to him hurting himself or someone else because of his lack of understanding of the situation currently Disposition Clinical Impression: Acute psychosis Disposition: ADMITTED IP TO THIS HOSP Referrals: Rene Greene MD [Primary Care Provider] - 1-2 days Time of Disposition: 20:03
[2024-04-18] MEDS ORDERED: MAG HYDROX/AL HYDROX/SIMETH 355 ML BOTTLE PO PRN (21:38)
[2024-04-18] MEDS ORDERED: IBUPROFEN 600 MG TAB PO PRN (21:38)
[2024-04-18] MEDS ORDERED: MAGNESIUM HYDROXIDE 2,400 MG/30 ML CUP PO PRN (21:38)
[2024-04-18] MEDS ORDERED: ACETAMINOPHEN TAB 325 MG TAB PO PRN (21:38)
[2024-04-18] MEDS ORDERED: haloperidoL 5 MG TAB PO PRN (21:39)
[2024-04-18] MEDS ORDERED: HALOPERIDOL LACTATE 5 MG/ML 1 ML VIAL IM PRN (21:39)
[2024-04-18] MEDS ORDERED: LORazepam 2 MG/ML INJ IM PRN (21:39)
[2024-04-18] MEDS ORDERED: traMADol 50 MG TAB PO PRN (21:40)
[2024-04-18] MEDS: NICOTINE GUM (POLACRILEX) 2 MG GUM BUCCAL PRN (22:42)
[2024-04-18] MEDS: QUEtiapine 200 MG TAB PO SCH (22:43)
[2024-04-18] MEDS: busPIRone HCl 10 MG TAB PO STA (22:43)
[2024-04-18 23:03] LABS: Appearance,Urine Clear (Clear); Bilirubin,Urine Negative (Negative); Blood,Urine Negative (Negative); Budding Yeast,Urine Rare /hpf; Color,Urine Yellow; Glucose,Urine (UA) Negative (Negative); Hyaline Casts,Urine 3 /lpf (0-2); Ketones,Urine 1+ (Negative); Leukocyte Esterase,Urine Negative (Negative); Mucus,Urine Many /hpf; Nitrite,Urine Negative (Negative); PH, Urine 5.5 (5.0-8.0); Protein,Urine 1+ (Negative); RBC,Urine 1 /hpf (0-5); Specific Gravity,Urine 1.021 (1.001-1.035); Squamous Epithelial Cell,Urine <1 /hpf (0-4); Urobilinogen,Urine <2.0 mg/dL (<2.0); WBC,Urine 1 /hpf (0-5)
[2024-04-18 23:27] LABS: Amphetamine Screen,Urine Detected (NotDetected); Barbiturate Screen,Urine Not Detected (NotDetected); Benzodiazepines Screen,Urine Not Detected (NotDetected); Cocaine Screen,Urine Detected (NotDetected); Methadone Screen, Urine Not Detected (NotDetected); Opiate Screen,Urine Not Detected (NotDetected); Oxycodone Screen, Urine Not Detected (NotDetected); Phencyclidine Screen,Urine Not Detected (NotDetected); Tricyclic Antidepressant,Urine Not Detected (NotDetected); Urn Cannabinoid Scrn Not Detected (NotDetected)
[2024-04-19 07:48] LABS: Basophils % (A) 0 %; Eosinophils % (A) 1 %; HCT 39.2 % (39.0-53.0); HGB 13.2 gm/dL (13.0-17.5); Lymphocytes % (A) 37 %; MCH 28.4 pg (25.0-35.0); MCHC 33.6 g/dL (31.0-37.0); MCV 84.7 fL (80.0-100.0); Mean Platelet Volume 9.3; Monocytes # (A) 0.5 k/uL (0-1.0); Monocytes % (A) 9 %; Neutrophils # (A) 2.8 k/uL (1.3-7.7); Neutrophils % (A) 52 %; Platelet Count 233 k/uL (150-450); RBC 4.63 m/uL (4.30-5.90); RDW 13.7 % (11.5-15.5); WBC 5.4 k/uL (3.8-10.6)
[2024-04-19 07:57] LABS: ALT 14 U/L (4-49); AST 39 U/L (17-59); African American GFR (CKD) >90 (>60 ml/min/1.73 sqM); Albumin 3.6 g/dL (3.5-5.0); Alkaline Phosphatase 71 U/L (38-126); Anion Gap 6 mmol/L; Bilirubin, Delta 0.2 mg/dL (0.0-0.2); Bilirubin,Unconjugated 1.9 mg/dL (0.0-1.1); Blood Urea Nitrogen 8 mg/dL (9-20); Calcium 9.2 mg/dL (8.4-10.2); Carbon Dioxide 26 mmol/L (22-30); Chloride 106 mmol/L (98-107); Glucose 73 mg/dL (74-99); Non-African American GFR(CKD) 88 (>60 ml/min/1.73 sqM); Potassium 3.8 mmol/L (3.5-5.1); Sodium 138 mmol/L (137-145); Total Bilirubin 2.1 mg/dL (0.2-1.3)
[2024-04-19] MEDS: NICOTINE 14MG/24HR PATCH TRANSDERM SCH (08:25)
[2024-04-19] MEDS: FAMOTIDINE 20 MG TAB PO SCH (08:25)
[2024-04-19] MEDS: ATORVASTATIN 20 MG TAB PO SCH (08:25)
[2024-04-19] MEDS: busPIRone HCl 10 MG TAB PO SCH (08:25)
[2024-04-19] MEDS: SERTRALINE 50 MG TAB PO SCH (11:00)
--- NOTE | 2024-04-19 11:03 | P.HP ---
Psychiatric H&P - . H&P Date: 04/19/24 History & Physical: Allergies Allergy/AdvReac Type Severity Reaction Status Date / Time gemfibrozil from Lopid Allergy LEG Verified 04/18/24 16:00 CRAMPS,ANXIETY metoclopramide HCl Allergy Rapid Verified 04/18/24 16:00 From Reglan Heart Rate Vital Signs Temp 98 F 04/19/24 06:06 Pulse 116 H 04/19/24 06:06 Resp 18 04/19/24 06:06 BP 109/72 04/19/24 06:06 Pulse Ox 100 04/19/24 06:06 FiO2 Intake & Output 04/18/24 04/19/24 04/19/24 18:59 06:59 18:59 Weight 63.503 kg 59.959 kg Laboratory Last Values WBC 5.4 k/uL (3.8-10.6) 04/19/24 07:06 RBC 4.63 m/uL (4.30-5.90) 04/19/24 07:06 Hgb 13.2 gm/dL (13.0-17.5) 04/19/24 07:06 Hct 39.2 % (39.0-53.0) 04/19/24 07:06 MCV 84.7 fL (80.0-100.0) 04/19/24 07:06 MCH 28.4 pg (25.0-35.0) 04/19/24 07:06 MCHC 33.6 g/dL (31.0-37.0) 04/19/24 07:06 RDW 13.7 % (11.5-15.5) 04/19/24 07:06 Plt Count 233 k/uL (150-450) 04/19/24 07:06 MPV 9.3 04/19/24 07:06 Neutrophils % 52 % 04/19/24 07:06 Lymphocytes % 37 % 04/19/24 07:06 Monocytes % 9 % 04/19/24 07:06 Eosinophils % 1 % 04/19/24 07:06 Basophils % 0 % 04/19/24 07:06 Neutrophils # 2.8 k/uL (1.3-7.7) 04/19/24 07:06 Lymphocytes # 2.0 k/uL (1.0-4.8) 04/19/24 07:06 Monocytes # 0.5 k/uL (0-1.0) 04/19/24 07:06 Eosinophils # 0.0 k/uL (0-0.7) 04/19/24 07:06 Basophils # 0.0 k/uL (0-0.2) 04/19/24 07:06 Sodium 138 mmol/L (137-145) 04/19/24 07:06 Potassium 3.8 mmol/L (3.5-5.1) 04/19/24 07:06 Chloride 106 mmol/L (98-107) 04/19/24 07:06 Carbon Dioxide 26 mmol/L (22-30) 04/19/24 07:06 Anion Gap 6 mmol/L 04/19/24 07:06 BUN 8 mg/dL (9-20) L 04/19/24 07:06 Creatinine 0.95 mg/dL (0.66-1.25) 04/19/24 07:06 Est GFR (CKD-EPI)AfAm >90 (>60 ml/min/1.73 sqM) 04/19/24 07:06 Est GFR (CKD-EPI)NonAf 88 (>60 ml/min/1.73 sqM) 04/19/24 07:06 Glucose 73 mg/dL (74-99) L 04/19/24 07:06 Calcium 9.2 mg/dL (8.4-10.2) 04/19/24 07:06 Total Bilirubin 2.1 mg/dL (0.2-1.3) H 04/19/24 07:06 Conjugated Bilirubin 0.0 mg/dL (0.0-0.3) 04/19/24 07:06 Unconjugated Bilirubin 1.9 mg/dL (0.0-1.1) H 04/19/24 07:06 Delta Bilirubin 0.2 mg/dL (0.0-0.2) 04/19/24 07:06 AST 39 U/L (17-59) 04/19/24 07:06 ALT 14 U/L (4-49) 04/19/24 07:06 Alkaline Phosphatase 71 U/L (38-126) 04/19/24 07:06 Total Protein 7.0 g/dL (6.3-8.2) 04/19/24 07:06 Albumin 3.6 g/dL (3.5-5.0) 04/19/24 07:06 TSH 1.550 mIU/L (0.465-4.680) 04/19/24 07:06 Urine Color Yellow 04/18/24 22:40 Urine Appearance Clear (Clear) 04/18/24 22:40 Urine pH 5.5 (5.0-8.0) 04/18/24 22:40 Ur Specific [place] 1.021 (1.001-1.035) 04/18/24 22:40 Urine Protein 1+ (Negative) H 04/18/24 22:40 Urine Glucose (UA) Negative (Negative) 04/18/24 22:40 Urine Ketones 1+ (Negative) H 04/18/24 22:40 Urine Blood Negative (Negative) 04/18/24 22:40 Urine Nitrite Negative (Negative) 04/18/24 22:40 Urine Bilirubin Negative (Negative) 04/18/24 22:40 Urine Urobilinogen <2.0 mg/dL (<2.0) 04/18/24 22:40 Ur Leukocyte Esterase Negative (Negative) 04/18/24 22:40 Urine RBC 1 /hpf (0-5) 04/18/24 22:40 Urine WBC 1 /hpf (0-5) 04/18/24 22:40 Ur Squamous Epith Cells <1 /hpf (0-4) 04/18/24 22:40 Hyaline Casts 3 /lpf (0-2) H 04/18/24 22:40 Urine Mucus Many /hpf (None) H 04/18/24 22:40 Urine Yeast (Budding) Rare /hpf (None) H 04/18/24 22:40 Urine Opiates Screen Not Detected (NotDetected) 04/18/24 22:40 Ur Oxycodone Screen Not Detected (NotDetected) 04/18/24 22:40 Urine Methadone Screen Not Detected (NotDetected) 04/18/24 22:40 Ur Barbiturates Screen Not Detected (NotDetected) 04/18/24 22:40 U Tricyclic Antidepress Not Detected (NotDetected) 04/18/24 22:40 Ur Phencyclidine Scrn Not Detected (NotDetected) 04/18/24 22:40 Ur Amphetamines Screen Detected (NotDetected) H 04/18/24 22:40 U Methamphetamines Scrn Detected (NotDetected) H 04/18/24 22:40 U Benzodiazepines Scrn Not Detected (NotDetected) 04/18/24 22:40 Urine Cocaine Screen Detected (NotDetected) H 04/18/24 22:40 U Marijuana (THC) Screen Not Detected (NotDetected) 04/18/24 22:40 Influenza Type A (PCR) Not Detected (Not Detectd) 04/18/24 19:23 Influenza Type B (PCR) Not Detected (Not Detectd) 04/18/24 19:23 RSV (PCR) Not Detected (Not Detectd) 04/18/24 19:23 SARS-CoV-2 (PCR) Not Detected (Not Detectd) 04/18/24 19:23 04/19/24 10:58 IDENTIFYING DATA: Patient is a 58-year-old -[place] male, current lives with his mother in a house, he is single, he has 1 kid, he works in a factory HPI: Patient presented to the hospital initially on 04/18. According to ER report patient was brought in by police acting bizarre at the store, speaking about the cartel being after him, he was paranoid. Patient was admitted involuntarily to the mental health unit. Patient's last psychiatric admission was in 2020. Patient has a history of psychosis and polysubstance abuse. He was agreeable to speak to health technical writer today. He was somewhat irritable, minimizing his need for admission and treatment. Was focused on discharge. He was fairly vague about what had occurred. He claims that he was having "problems at the store" and states that it was due to other people. Claims that he got into a fight with a lady and she called the police on him. He states that he does not know why she called, claims that he was arrested by the police and was resisting to get into the vehicle. Claims that he thought that he was going into "protective custody". Claims that everything was a lie that was spoken to him. He has very poor insight poor judgment. Poor reality testing. He claims that there has been "bad people out there" coming to get him. Claims that he has been deleting things off of his phone to protect himself. Claims that his sleep and appetite are improving since being in the hospital. Did claim that he recently was using methamphetamine and cocaine. Patient denies any suicidal or homicidal ideations intent or plan. At this time patient denies any auditory or visual hallucinations. Patient denies any flight of ideas racing thoughts and increased in goal directed behavior. Patient admits to using methamphetamine and cocaine as noted above, unknown quantity. Claims that he also smokes cigarettes. PAST PSYCHIATRIC HISTORY: Patient has a history of psychosis and polysubstance abuse. Patient is currently on Wellbutrin, Seroquel and BuSpar. Patient's last psychiatric admission was in 2020. Claims that he follows up at [facility] with an unknown provider. Patient denies any history of suicide attempts in the past. PMH: as per ER note ALLERGIES: as per EMR CHEMICAL DEPENDENCY HISTORY: as per HPI FAMILY PSYCHIATRIC/SUBSTANCE USE HISTORY: Denies SOCIAL HISTORY: Patient was born and raised in [place]. Claims that he completed the 10th grade in school. He currently lives with his mother in a house, he is single, he has 1 kid, he works at the [employer]. States that he was in long term/jail in the past for drug-related charges and also weapons. MENTAL STATUS EXAM: General Appearance: Patient appears to be thin, shaved head, has a morton, stated age is alert, irritable, paranoid. Patient appears to have fair hygiene and grooming. Behavior: Patient is seated without any agitated behavior. Irritable, paranoid, vague. Focused on discharge Speech: Patient's speech is fluent and nonpressured. Notable tone Mood/Affect: Patient reports their mood is "okay", affect is incongruent and constricted. Suicidality/Homicidality: Patient denies having any homicidal ideation intent or plan. Denies any suicidal ideations intent or plan Perceptions: Patient denies any visual hallucinations and denies any auditory hallucinations Though content/process: Goal-directed. Focused on discharge, minimizing, vague. Endorsing paranoia. Memory and concentration: AOX3, grossly intact for the purposes of this session. Can spell "WORLD" backwards Judgment and insight: Poor STRENGTHS/WEAKNESSES: strength is that patient is resilient. Weakness is that patient has poor judgment and is impulsive INTELLECT: Average IMPRESSIONS: Psychosis unspecified Methamphetamine use disorder Cocaine use disorder Nicotine dependence PLAN: -Patient is admitted under involuntary status to MHU for stabilization of psychiatric symptoms and safety. Patient has not signed adult voluntary form and medication consent and is placed in patient's chart. A second certification was completed and along with petition will be filed for court. -Medications : Seroquel 200 mg nightly for mood stabilization/psychosis. Zoloft 50 mg daily for mood/anxiety, BuSpar 30 mg twice daily for anxiety -Ativan and Haldol PRN for agitation/aggression -Will offer patient subtance use rehab -Patient was informed of the risks, benefits and side effects of the medication and patient verbally consented to taking the medications. Patient signed med consent form and was placed in chart. -Internal Medicine consult to perform medical evaluation and physical. -NRT -nicotine patch -SW on board for discharge planning. Encourage patient to participate in groups to work on coping skills. Will await deferral and court date.
[2024-04-19] MEDS: LORazepam 1 MG TAB PO PRN (12:04)
--- NOTE | 2024-04-19 12:21 | P.HPIM ---
History of Present Illness H&P Date: 04/19/24 Charly Bragg, is a 58-year-old male, well-known to my practice, who was brought into [facility] emergency room by the police, for acting bizarre in a store and talking about being pursued by the cartel. He was evaluated in the emergency room vital examination on presentation reve aled a temperature of 98 pulse 101 respiration 20 blood pressure 185/109 pulse ox 98% on room air Laboratory data revealed a white blood count of 5.4 hemoglobin 13.2 platelet count 233 BUN 8 creatinine 0.95 TSH 1.55 urine toxicology screen was positive for amphetamine, methamphetamine, and cocaine Patient was admitted to the psychiatry unit for further evaluation and treatment, medical consultation was requested for management while hospitalized. Past medical history is significant for history of hyperlipidemia, history of gastroesophageal reflux disease, and history of Crohn's disease. On review of systems patient is alert and oriented x 3 in no apparent distress, he seems anxious, he denies any physical complaints at this time, there is no fever or chills no headache or dizziness no chest pain no shortness of breath no cough no nausea or vomiting no abdominal pain no diarrhea no blood in the stools, no burning with urination no frequency or urgency and no hematuria, patient denies any weakness or numbness in any of the extremities, he denies any change in vision speech or gait. Past Medical History Past Medical History: COPD, GERD/Reflux, Hyperlipidemia, Osteoarthritis (OA), Pneumonia Additional Past Medical History / Comment(s): Lower GI bleed, hemorrhoids, constipation, involuntary movements with reglan use, back pain, L shoulder pain d/t injury 2 yrs ago, RLS, migraines. History of Any Multi-Drug Resistant Organisms: None Reported Additional Past Surgical History / Comment(s): COLONOSCOPY,EGD Past Anesthesia/Blood Transfusion Reactions: No Reported Reaction Past Psychological History: Depression Additional Psychological History / Comment(s): Pt resides with his mother. He states his depression has increased lately, but no thoughts/plans of suicide. He is independent. Smoking Status: Current every day smoker Past Alcohol Use History: None Reported Past Drug Use History: Cocaine, Methamphetamine Additional Drug Use History / Comment(s): He states he used cocaine/crack in past few days. - Past Family History Mother Family Medical History: GERD/Reflux Father Family Medical History: Cancer, Myocardial Infarction (VA) Additional Family Medical History / Comment(s): Cancer in abdominal area, of a massive VA at the age of 67yrs. Medications and Allergies Home Medications Medication Instructions Recorded Confirmed Type Famotidine [Pepcid] 20 mg PO DAILY 04/18/24 04/18/24 History QUEtiapine FUMARATE [SEROquel] 200 mg PO HS 04/18/24 04/18/24 History Rosuvastatin [Crestor] 10 mg PO DAILY 04/18/24 04/18/24 History buPROPion XL [Wellbutrin XL] 150 mg PO DAILY 04/18/24 04/18/24 History busPIRone HCL [Buspar] 30 mg PO BID 04/18/24 04/18/24 History traMADol HCL 50 mg PO Q4H PRN 04/18/24 04/18/24 History Allergies Allergy/AdvReac Type Severity Reaction Status Date / Time gemfibrozil [From Lopid] Allergy LEG Verified 04/18/24 16:00 CRAMPS,ANXIETY metoclopramide HCl Allergy Rapid Verified 04/18/24 16:00 [From Reglan] Heart Rate Physical Exam Vitals: Vital Signs Temp Pulse Pulse Resp BP BP Pulse Ox 04/19/24 06:06 98 F 116 H 18 109/72 100 04/18/24 22:18 98.7 F 112 H 18 138/96 99 04/18/24 21:46 87 20 148/90 99 04/18/24 15:00 81 18 174/104 96 04/18/24 12:46 98.0 F 101 H 20 185/109 98 Intake and Output 04/18/24 04/19/24 04/19/24 22:59 06:59 14:59 Other: Weight 59.959 kg In general patient is alert and oriented x 3 in no distress HEENT head normocephalic and atraumatic Neck is supple no JVD no goiter no lymphadenopathy no carotid bruit Chest examination is clear to auscultation no crackles no wheezing Cardiac exam reveals regular heart sounds S1 and S2 no gallops no murmurs Abdomen is soft nontender no organomegaly with normal bowel sounds Extremity exam reveals no edema no cyanosis or clubbing Neurological examination reveals no gross focal deficits Results CBC & Chem 7: 04/19/24 07:06 04/19/24 07:06 Labs: Abnormal Lab Results - Last 24 Hours (Table) 04/18/24 04/18/24 04/19/24 Range/Units 22:40 22:40 07:06 BUN 8 L (9-20) mg/dL Glucose 73 L (74-99) mg/dL Total Bilirubin 2.1 H (0.2-1.3) mg/dL Unconjugated Bilirubin 1.9 H (0.0-1.1) mg/dL Urine Protein 1+ H (Negative) Urine Ketones 1+ H (Negative) Hyaline Casts 3 H (0-2) /lpf Urine Mucus Many H (None) /hpf Urine Yeast (Budding) Rare H (None) /hpf Ur Amphetamines Screen Detected H (NotDetected) U Methamphetamines Scrn Detected H (NotDetected) Urine Cocaine Screen Detected H (NotDetected) Thrombosis Risk Factor Assmnt - Choose All That Apply Any of the Below Risk Factors Present?: Yes Each Factor Represents 1 point: Age 41-60 years Other Risk Factors: No Thrombosis Risk Factor Assessment Total Risk Factor Score: 1 Thrombosis Risk Factor Assessment Level: Low Risk Assessment and Plan Plan: Psychosis, with paranoia, management per primary psychiatry team. Methamphetamine use disorder Cocaine use disorder Underlying history of Crohn's disease Underlying history of hyperlipidemia Underlying history of gastroesophageal reflux disease Underlying history of tobacco abuse At this time patient was seen and examined Home medications reviewed and reordered. Patient is ambulatory and no need for DVT prophylaxis Patient denies any physical complaints at this time. Will follow during this admission for medical management
[2024-04-19 12:52] LABS: LDL Cholesterol,Calculated 65.3 mg/dL (0.0-131.0); VLDL Calculation 17.56 mg/dL (5.00-40.00)
[2024-04-20 07:11] VITALS: RESP 16
[2024-04-20] MEDS: PANTOPRAZOLE 40 MG TABLET PO SCH (09:04)
--- NOTE | 2024-04-20 12:38 | P.PN ---
Progress Note - Text Progress Note Date: 04/20/24 Interval history: Patient was seen laying in his bed today and was directable and agreeable to speak with insurance underwriter. He states that he is doing a bit better. He was fairly concrete with his answers. He was fairly focused on discharge and seeing his sand analyst. He is not endorsing any delusions at this time, denying any paranoia. States that he slept fairly last night. Has been mainly in his room keeping to himself, appetite is fair. At this time patient denies any suicidal or homicidal ideations intent or plan. Denies any Auditory or visual hallucinations. Patient denies any side effects from the medications and has been compliant with meds. Mental status exam: General Appearance: Patient appears to be stated age is alert, directable, and times to be cooperative. Behavior: No agitated behavior. Patient is calm and directable, more cooperative today. Speech: Patient's speech is fluent and nonpressured. Mood/Affect: Mood is improving mildly, affect is congruent and constricted. Suicidality/Homicidality: Patient denies having any suicidal or homicidal ideation intent or plan. Perceptions: Patient denies any auditory or visual hallucinations. Though content/process: There is no evidence of any delusional thought content and thought process is linear and goal-directed. Memory and concentration: AOX3, grossly intact for the purposes of this session Judgment and insight: improving mildly Assessment/Plan: Continue with current diagnosis. Patient continues to meet nita kelley for inpatient psychiatric admission for symptom stabilization and safety. Patient will be maintained on current psychotropic medication regimen. Monitor for medication compliance and for any psychotropic medication side effects. Will continue to monitor ongoing response to treatment. Encouraged participation in milieu.
--- NOTE | 2024-04-21 12:42 | P.PN ---
Progress Note - Text Progress Note Date: 04/21/24 Interval History: Patient was seen wandering the hallways and was directable and agreeable to sp sharri with conventional underwriter in the office. Patient states he is feeling better today. He denied any sleep or appetite difficulties. He reports being here against his will due to police attempting to set him up. He reports people trying to set him up while at home which prompted him to leave the house and go to a gas station who called the police. This is in the context of cocaine use however patient denies this being a problem and reports occasional use. UDS was discussed with the patient and he denied any current meth use and states that this must have been mixed in with his cocaine. He does not wish to go to rehab upon discharge but was strongly encouraged to consider this. He inquired regarding his job and how this hospitalization will impact that. He was encouraged to go to groups. At this time patient denies any suicidal or homicidal ideations, intent or plan. Patient denies any auditory, visual hallucinations. Patient denies any side effects from the medications and has been compliant with meds. Mental Status Exam: General Appearance: Patient appears to be stated age is alert, directable, and cooperative. Behavior: Patient is calmly seated without any agitated behavior. Speech: Patient's speech is fluent and nonpressured. Mood/Affect: Mood is improving mildly, affect is congruent and constricted. Suicidality/Homicidality: Patient denies having any suicidal or homicidal ideation intent or plan. Perceptions: Patient denies any visual hallucinations and denies any auditory hallucinations Though content/process: There is evidence of delusional thought content that is largely persecutory and thought process is linear and goal-directed. Memory and concentration: AOX3, grossly intact for the purposes of this session Judgment and insight: Improving mildly Assessment Psychosis, unspecified Rule out substance-induced psychosis Cocaine use disorder Nicotine dependence Plan: -Patient continues to meet criteria for inpatient psychiatric admission for symptom stabilization and safety. Patient has not signed adult voluntary form and medication consent and was placed in patient's chart. -Medications: Continue Zoloft 50 mg daily for depression, Seroquel 200 mg p.o. a t bedtime for psychosis, BuSpar 30 mg twice daily for anxiety -When necessary Ativan and Haldol for agitation/aggression. -Labs: Reviewed -NRT -nicotine patch -SW on board for discharge planning. Encouraged the patient to participate in milieu. Currently awaiting deferral with package delivery driver and court date. Anticipate discharge midweek to mom's pending stabilization in psychosis
[2024-04-22 07:09] VITALS: BP 103/69; PULSE 72; TEMP 97.7
--- NOTE | 2024-04-22 13:55 | P.DS ---
Providers Date of admission: 04/18/24 21:33 Expected date of discharge: 04/22/24 Attending physician: Analisa Coreas MD Consults: 04/19/24 02:58 Consult Physician Routine Consulting Provider: Rene Greene Consult Reason/Comments: medical H&P Do you want consulting provider notified?: Yes, Notify in am Primary care physician: Rene Greene - Discharge Diagnosis(es) (1) Acute psychosis Current Visit: Yes Status: Acute Priority: High (2) Cocaine abuse Current Visit: Yes Status: Chronic Priority: Medium (3) Nicotine dependence Current Visit: Yes Status: Chronic Priority: Low Hospital Course: Admission HPI: Admission note was completed by Dr. Peñaloza "IDENTIFYING DATA: Patient is a 58-year-old -[place] male, current lives with his mother in a house, he is single, he has 1 kid, he works in a factory HPI: Patient presented to the hospital initially on 04/18. According to ER report patient was brought in by police acting bizarre at the store, speaking about the cartel being after him, he was paranoid. Patient was admitted involuntarily to the mental health unit. Patient's last psychiatric admission was in 2020. Patient has a history of psychosis and polysubstance abuse. He was agreeable to speak to headline writer today. He was somewhat irritable, minimizing his need for admission and treatment. Was focused on discharge. He was fairly vague about what had occurred. He claims that he was having "problems at the store" and states that it was due to other people. Claims that he got into a fight with a lady and she called the police on him. He states that he does not know why she called, claims that he was arrested by the police and was resisting to get into the vehicle. Claims that he thought that he was going into "protective custody". Claims that everything was a lie that was spoken to him. He has very poor insight poor judgment. Poor reality testing. He claims that there has been "bad people out there" coming to get him. Claims that he has been deleting things off of his phone to protect himself. Claims that his sleep and appetite are improving since being in the hospital. Did claim that he recently was using methamphetamine and cocaine. Patient denies any suicidal or homicidal ideations intent or plan. At this time patient denies any auditory or visual hallucinations. Patient denies any flight of ideas racing thoughts and increased in goal directed behavior. Patient admits to using methamphetamine and cocaine as noted above, unknown quantity. Claims that he also smokes cigarettes. PAST PSYCHIATRIC HISTORY: Patient has a history of psychosis and polysubstance abuse. Patient is currently on Wellbutrin, Seroquel and BuSpar. Patient's last psychiatric admission was in 2020. Claims that he follows up at [facility] with an unknown provider. Patient denies any history of suicide attempts in the past." Hospital course: Upon admission to the unit patient was admitted involuntarily on a petition and certificate and a second certificate was completed and faxed to the courts. Patient ended up signing a deferral with the commercial real estate attorney and agreeing to treatment.. Patient got along well with other patients on the unit and followed unit protocol. Patient was compliant with the medications and denied any side effects throughout hospital course. Patient was started on Zoloft 50 mg daily for depression, Seroquel 200 mg at bedtime for psychosis, BuSpar 30 mg twice daily for anxiety. Patient spoke of his stressors and engaged in therapy both group and individual. Patient was also seen by medical team for history and physical exam. Throughout the course of the hospitalization patient gradually improved with regards to mood, anxiety, sleep and returned back to their baseline level of functioning. On the day of discharge patient denied any suicidal or homicidal ideations intent or plan denied any auditory or visual dwayne lucinations. The patient denied any access to guns or weapons. Patient denied any paranoia and did not endorse any delusions. Patient does have a significant history of substance abuse and was counseled on abstaining from all substances including alcohol and cocaine. Patient was offered however declined inpatient substance-abuse rehab.. Patient was also counseled on the medications and need for regular compliance and was encouraged to follow-up with their outpatient appointment for mental health and also for primary care. Prior to discharge a family meeting will be arranged by foster care social worker to answer any questions and ensure safety upon discharge incuding making sure that guns/weapons are either removed from the home or locked away. Mental status exam: General Appearance: Patient appears to be stated age is alert, pleasant, and cooperative. Patient is in no acute distress and has improved hygiene and grooming Behavior: Patient is calmly seated without any agitated behavior. Speech: Patient's speech is fluent and nonpressured. Mood/Affect: Patient reports their mood is "good", affect is congruent and euthymic. Suicidality/Homicidality: Patient denies having any suicidal or homicidal ideation intent or plan. Perceptions: Patient denies any auditory or visual hallucinations. Though content/process: There is no evidence of any delusional thought content and thought process is linear and goal-directed. Memory and concentration: AOX3, grossly intact for the purposes of this session. Can spell "WORLD" backwards correctly. Judgment and insight: improved with guarded prognosis Impression: Acute psychosis Cocaine abuse Nicotine dependence Plan: -Continue with discharge today as patient has improved and stabilized psychiatrically and is not currently an imminent threat to themself and/or others. -Continue medications: Seroquel 200 mg at bedtime, Zoloft 50 mg daily, BuSpar 30 mg twice daily -Patient was counseled on the need for medication compliance and appropriate follow-up at mental health and also primary care for medical issues. Patient verbalized understanding and agreed. -Social work to help coordinate patients discharge today arrange for and conduct family meeting to ensure safety upon discharge and answer any questions/concerns. also to ensure safe home environment that guns/weapons are either removed from the home or locked away. Social work also to arrange for patients follow up appointments with [facility] for psychiatric care along with follow up with primary care provider. -Patient counseled on abstaining from recreational drugs and marijuana and alcohol. Was informed/educated on the adverse effects on their physical and mental health. Patient verbally agreed and understood. Patient was offered substance abuse treatment however declined at this time. -Patient was instructed to return to the hospital or seek immediate medical care if their psychiatric or medical symptoms do worsen or reoccur. Abnormal Labs 04/18/24 04/18/24 04/19/24 22:40 22:40 07:06 BUN Glucose Hemoglobin A1c 6.2 H Total Bilirubin Unconjugated Bilirubin Urine Protein 1+ H Urine Ketones 1+ H Hyaline Casts 3 H Urine Mucus Many H Urine Yeast (Budding) Rare H Ur Amphetamines Screen Detected H U Methamphetamines Scrn Detected H Urine Cocaine Screen Detected H 04/19/24 07:06 BUN 8 L Glucose 73 L Hemoglobin A1c Total Bilirubin 2.1 H Unconjugated Bilirubin 1.9 H Urine Protein Urine Ketones Hyaline Casts Urine Mucus Urine Yeast (Budding) Ur Amphetamines Screen U Methamphetamines Scrn Urine Cocaine Screen Vital Signs Temp 97.7 F 04/22/24 06:50 Pulse 72 04/22/24 06:50 Resp 16 04/22/24 06:50 BP 103/69 04/22/24 06:50 Pulse Ox 100 04/22/24 06:50 FiO2 Allergies Allergy/AdvReac Type Severity Reaction Status Date / Time gemfibrozil [From Lopid] Allergy LEG Verified 04/18/24 16:00 CRAMPS,ANXIETY metoclopramide HCl Allergy Rapid Verified 04/18/24 16:00 [From Reglan] Heart Rate Patient Condition at Discharge: Stable Plan - Discharge Summary Discharge Rx Participant: Yes New Discharge Prescriptions: New Nicotine 14Mg/24Hr Patch [Habitrol] 1 patch TRANSDERM DAILY 30 Days #30 patch Pantoprazole [Protonix] 40 mg PO AC-BRKFST 30 Days #30 tab Continue Rosuvastatin [Crestor] 10 mg PO DAILY busPIRone HCL [Buspar] 30 mg PO BID 30 Days #60 tab Famotidine [Pepcid] 20 mg PO DAILY 30 Days #30 tab QUEtiapine FUMARATE [SEROquel] 200 mg PO HS 30 Days #30 tab Discontinued traMADol HCL 50 mg PO Q4H PRN PRN Reason: Pain buPROPion XL [Wellbutrin XL] 150 mg PO DAILY Discharge Medication List Rosuvastatin [Crestor] 10 mg PO DAILY 04/18/24 [History] Famotidine [Pepcid] 20 mg PO DAILY 30 Days #30 tab 04/22/24 [Rx] Nicotine 14Mg/24Hr Patch [Habitrol] 1 patch TRANSDERM DAILY 30 Days #30 patch 04/22/24 [Rx] Pantoprazole [Protonix] 40 mg PO AC-BRKFST 30 Days #30 tab 04/22/24 [Rx] QUEtiapine FUMARATE [SEROquel] 200 mg PO HS 30 Days #30 tab 04/22/24 [Rx] busPIRone HCL [Buspar] 30 mg PO BID 30 Days #60 tab 04/22/24 [Rx] Follow up Appointment(s)/Referral(s): [facility] [Outside] - 04/25/24 10:00 am (04/25 at 10am with Markell Priest 05/[address] Mckeon) Rene Greene MD [Primary Care Provider] - 1-2 days Discharge Disposition: HOME SELF-CARE
== END 2024-04-22 15:46 | disposition home or self-care (01) | DRG 751 ==
LOC: EC 12:43 → SUPCPDRO 12:43 → 3MHU 21:33
PROVIDERS: ADMIT Psychiatry & Neurology Psychiatry; ATTEND Psychiatry & Neurology Psychiatry
DX: F23 Brief psychotic disorder (principal); F14.10 Cocaine abuse, uncomplicated; F15.10 Other stimulant abuse, uncomplicated; E78.5 Hyperlipidemia, unspecified; F17.210 Nicotine dependence, cigarettes, uncomplicated; Z79.899 Other long term (current) drug therapy
CPT/HCPCS: 80053; 80061; 80306; 81001; 82075; 82248; 83036; 84443; 85025; 87636; 99285